=== PATIENT | male | born 1980 | race African-American/Black ===

== ENCOUNTER 2019-11-27 23:12 | Emergency (ER) | payer MEDICARE, SELFPAY ==
[2019-11-27 23:15] VITALS: BP 136/91; PULSE 84; RESP 15; TEMP 37.1; O2SAT 100
[2019-11-27 23:39] LABS: Basophils Absolute Auto 0.1 K/mm3 (0.0-0.1); Basophils Percent Auto 0.6 % (0.2-1.2); Eosinophils Absolute Auto 0.1 K/mm3 (0-0.3); Hematocrit 40.2 % (42.0-52.0); Hemoglobin 13.6 g/dL (14.0-18.0); Immature Granulocyte Absolute 0.02 K/mm3 (0.00-0.031); Immature Granulocyte Percent A 0.2 % (0-0.5); Lymphocytes Absolute Auto 2.92 K/mm3 (0.9-3.2); Lymphocytes Percent Auto 36.5 % (18.3-44.2); Mean Corpuscular HGB Conc 33.8 g/dl (32-36); Mean Corpuscular Hemoglobin 30.3 pg (26-34); Mean Corpuscular Volume 89.5 fl (80-100); Mean Platelet Volume 11.2 fl (7.4-10.4); Monocytes Absolute Auto 1.3 K/mm3 (0.1-0.6); Monocytes Percent Auto 15.9 % (2.6-8.5); Neutrophils Absolute Auto 3.7 K/mm3 (1.3-6.7); Neutrophils Percent Auto 45.8 % (45.5-73.1); Platelet Count Result 208 k/mm3 (150-375); Red Blood Count 4.49 M/mm3 (4.6-6.20); Red Cell Distribution Width 14.6 % (11.5-14.5)
[2019-11-27 23:58] LABS: Alanine Aminotransferase 26 U/L (4-50); Albumin Level 3.7 g/dL (3.5-5.1); Alkaline Phosphatase 86 U/L (38-126); Anion Gap 10.2 mmol/L (7-16); Aspartate Amino Transferase 46 U/L (17-59); Bilirubin,Total 0.3 mg/dL (0.2-1.3); Blood Urea Nitrogen 13 mg/dL (9-20); Calcium 8.7 mg/dL (8.4-10.2); Carbon Dioxide 27 mmol/L (22-30); Chloride 104 mmol/L (98-107); Estimated Glomerular Filt Rate > 60; Glucose 85 mg/dL (75-110); Potassium 4.2 mmol/L (3.4-5.0); Sodium 137 mmol/L (137-145)
[2019-11-28] LABS: Ethanol < 10 mg/dL (<10)
[2019-11-28 00:08] LABS: Amphetamine Screen Urine Negative (Negative); Barbiturate Screen Urine Negative (Negative); Benzodiazepines Screen Urine Negative (Negative); Cannabinoid Screen Urine Positive (Negative); Cocaine Screen Urine Negative (Negative); Methadone Screen Urine Negative (Negative); Opiate Screen Urine Negative (Negative); Phencyclidine Screen Urine Negative (Negative)
--- NOTE | 2019-11-28 00:08 | ED.PSYCH ---
HPI - Psych General Chief Complaint: Psychiatric Symptoms <Emma Dockery MD - Last Filed: 11/30/19 12:26> Stated Complaint: SI <Emma Dockery MD - Last Filed: 11/30/19 12:26> Time Seen by Provider: 11/27/19 23:17 <Emma Dockery MD - Last Filed: 11/30/19 12:26> History of Present Illness HPI Narrative: Patient presents for depression. He says he has ideas of suicide but no plan. He has ideas of homicide but no plan. He has no target for his homicidal ideation. He says he is on valproic acid and is not working. He is homeless and he says his feet hurt. He smokes cigarettes, drinks alcohol, does cocaine. 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 He is currently unemployed. I told him the psych worker would come in and evaluate him for either inpatient or outpatient, and he said he cannot do outpatient and has to be inpatient. <Emma Dockery MD - Last Filed: 11/30/19 12:26> MD complaint: suicidal ideation and feels depressed <Emma Dockery MD - Last Filed: 11/30/19 12:26> Onset (ago): day(s) <Emma Dockery MD - Last Filed: 11/30/19 12:26> Duration: constant <Emma Dockery MD - Last Filed: 11/30/19 12:26> History of same: Yes <Emma Dockery MD - Last Filed: 11/30/19 12:26> Relieving factors: none <Emma Dockery MD - Last Filed: 11/30/19 12:26> Exacerbating factors: other (Stress) <Emma Dockery MD - Last Filed: 11/30/19 12:26> Context: recent drug abuse and new medication(s) <Emma Dockery MD - Last Filed: 11/30/19 12:26> Associated psychiatric symptoms: depression, suicidal ideation and homicidal ideation <Emma Dockery MD - Last Filed: 11/30/19 12:26> Associated symptoms: other (Sore feet) <Emma Dockery MD - Last Filed: 11/30/19 12:26> Treatments prior to arrival: none <Emma Dockery MD - Last Filed: 11/30/19 12:26> If self harm: admits thoughts of self harm <Emma Dockery MD - Last Filed: 11/30/19 12:26> Related Data Home Medications: Home Medications Medication Instructions Recorded Confirmed benztropine 0.5 mg tablet 0.5 mg PO DAILY 04/04/19 divalproex 500 mg tablet,delayed 500 mg PO BID tablet 04/04/19 release haloperidol 10 mg tablet 10 mg PO DAILY 04/04/19 haloperidol 5 mg tablet 5 mg PO DAILY 04/04/19 zolpidem 10 mg tablet See Rx Instructions .ROUTE .COMPLEX 04/04/19 aripiprazole mg 11/27/19 divalproex PO 11/27/19 hydroxyzine HCl 11/27/19 lorazepam 11/27/19 paliperidone palm (3-month) mg IM 11/27/19 [Invega Trinza] paliperidone palm (3-month) mg IM 11/27/19 [Invega Trinza] <Emma Dockery MD - Last Filed: 11/30/19 12:26> Allergies/Adverse Reactions: Allergies Allergy/AdvReac Type Severity Reaction Status Date / Time No Known Allergies Allergy Mild Verified 04/22/09 09:11 Penicillins Allergy Unknown Unknown Verified 11/27/19 23:21 <Emma Dockery MD - Last Filed: 11/30/19 12:26> Review of Systems Review of Systems: Narrative: CONSTITUTIONAL: Denies fever, chills, or sweats. EYES: Denies visual changes, redness, or discharge. ENT: Denies rhinorrhea, congestion, sore throat, or otalgia. CARDIOVASCULAR: Denies chest pain, palpitations, or edema. RESPIRATORY: Denies cough or dyspnea. GASTROINTESTINAL: Denies abdominal pain, nausea, vomiting, or diarrhea. GENITOURINARY: Denies dysuria or hematuria. SKIN: Denies rash or itching. MUSCULOSKELETAL: Denies back pain, joint pain, or myalgia. Sore feet NEUROLOGIC: Denies headache, numbness, or weakness. PSYCHIATRIC: depression. <Emma Dockery MD - Last Filed: 11/30/19 12:26> [facility] Family History Family History: Family History (Updated 03/25/17 @ 13:24 by DOCTOR UNKNOWN) Mother Patient's mother is in good health <Emma Dockery MD - Last Filed: 11/30/19 12:26> Social History Social History: Social History (Updated 11/28/19 @ 00:14 by Emma Dockery MD) Smoking statu
[2019-11-28 00:52] LABS: Add Urine Microscopic? YES; Appearance Urine Clear (Clear); Bilirubin Urine Negative (Negative); Blood Urine Negative (Negative); Color Urine Straw (Yellow); Glucose Urine UA Negative (Negative); Ketones Urine Trace mg/dL (Negative); Leukocyte Esterase Ur Negative LEU/UL (Negative); Mucus Urine Rare /lpf; Nitrate Urine Negative (Negative); Protein Urine Negative (Negative); RBC Urine 0-2 /hpf (0-2); Specific Grav Ur 1.015 (1.001-1.035); Urobilinogen Urine Negative mg/dL (<2.0); WBC Urine 0-3 /hpf
--- NOTE | 2019-11-28 01:28 | PC.NURSE ---
Called crisis to have patient evaluated
--- NOTE | 2019-11-28 02:08 | PC.NURSE ---
Crisis here to evaluate Pt.
[2019-11-28 05:03] VITALS: BP 125/79; PULSE 74; RESP 20; O2SAT 100
--- NOTE | 2019-11-28 05:06 | PC.NURSE ---
tea tree farm worker states there are no hospitals that have beds at this time. tea tree farm worker to follow up in the morning.
[2019-11-28 08:07] VITALS: BP 127/84; PULSE 74; RESP 18; O2SAT 100
--- NOTE | 2019-11-28 10:19 | PC.NURSE ---
Pt chart faxed to [facility], and [facility].
[2019-11-28 10:47] VITALS: BP 145/83; PULSE 77; O2SAT 100
--- NOTE | 2019-11-28 11:48 | PC.NURSE ---
Lunch tray order at this time
--- NOTE | 2019-11-28 12:13 | PC.NURSE ---
[facility] on the phone for report on patient at this time
--- NOTE | 2019-11-28 12:13 | PC.NURSE ---
[facility] called to confirm patient was voluntary
--- NOTE | 2019-11-28 12:32 | PC.NURSE ---
Pt accepted to [facility], under Dr Randhawa
[2019-11-28 12:47] VITALS: BP 133/89; PULSE 68; RESP 18; O2SAT 100
[2019-11-28 15:37] VITALS: BP 139/96; PULSE 69; RESP 20; O2SAT 98
[2019-11-28] MEDS: DIVALPROEX SODIUM 250 MG TABEC 500 MG PO (17:09)
[2019-11-28] MEDS: ONDANSETRON HCL ODT 4 MG TABLET PO (17:09)
--- NOTE | 2019-11-28 17:09 | PC.NURSE ---
Pt given PO medications with ice water, pt is calm and cooperative. Sitter at bedside, discussed POC. Food tray ordered for pt.
[2019-11-28 18:40] VITALS: BP 129/83; PULSE 76; RESP 18; O2SAT 99
--- NOTE | 2019-11-28 18:40 | PC.NURSE ---
Updated pt. EMS eta 0600 tomorrow morning 11/28
[2019-11-28] MEDS: ZOLPIDEM TARTRATE 5 MG TABLET PO (22:57)
--- NOTE | 2019-11-29 02:08 | PC.NURSE ---
Spoke to [facility] to give update that ambulance ETA is still 0600.
[2019-11-29 02:11] VITALS: BP 131/77; PULSE 68; RESP 16; TEMP 36.3; O2SAT 100
[2019-11-29] MEDS: ACETAMINOPHEN 500 MG TABLET 1000 MG PO (02:40)
[2019-11-29] MEDS: HALOPERIDOL LACTATE 5 MG/ML VIAL IM (02:57)
--- NOTE | 2019-11-29 05:58 | PC.NURSE ---
Called [facility] for update on ETA. ETA 1100.
--- NOTE | 2019-11-29 06:06 | PC.NURSE ---
Cancelled [facility]. [facility] is arranging transportation.
--- NOTE | 2019-11-29 06:20 | PC.NURSE ---
Spoke to [facility] regarding transport. Diana told this RN to contact [facility], , to arrange transport. 4 digit code from [facility] is [phone]. ETA for new transport is 8:45.
--- NOTE | 2019-11-29 06:24 | PC.NURSE ---
Patient getting agitated at this time stating he is ready to get out of the ED.
[2019-11-29] MEDS: ALPRAZolam 0.25 MG TABLET 1 MG PO (06:37)
[2019-11-29 07:15] VITALS: BP 114/79; PULSE 63; RESP 15; TEMP 37; O2SAT 100
--- NOTE | 2019-11-29 07:16 | PC.NURSE ---
This RN went into pts room. Pt was asleep on mattress on floor. This RN woke pt and asked if I could get a set of vitals. Pt complied and sat on bed. Pt asked for some cookies and this RN gave him 3. This Rn asked pt if he was feeling like he wanted to harm himself or others and he states that has passed . Pt then states that he is getting some good sleep. Breakfast tray was ordered for pt. Pt was compliant. Sitter is at bedside and room is safe. Will continue to monitor.
--- NOTE | 2019-11-29 07:38 | PC.NURSE ---
Pt breakfast tray at bedside
--- NOTE | 2019-11-29 09:27 | PC.NURSE ---
[facility] here to take [facility] to [facility]. Pts belongings given to pt. Pt walked out with transport with no difficulty
== END 2019-11-29 09:29 ==
PROVIDERS: Emergency Medicine; Emergency Provider General Practice
DX: R45.851 Suicidal ideations (principal); F17.210 Nicotine dependence, cigarettes, uncomplicated; Z59.0 Homelessness; Z79.899 Other long term (current) drug therapy
CPT/HCPCS: 36415; 80053; 80307; 81001; 84443; 85025; 96372; 99285; A9270; J1630

== ENCOUNTER 2020-01-08 22:22 | Emergency (ER) | payer MEDICARE, SELFPAY ==
[2020-01-08 22:27] VITALS: BP 126/89; PULSE 97; RESP 18; TEMP 36.1; O2SAT 98
--- NOTE | 2020-01-08 22:36 | ED.PSYCH ---
HPI - Psych General Chief Complaint: Psychiatric Symptoms <Kailash Bhatt MD - Last Filed: 01/09/20 06:24> Stated Complaint: SI <Kailash Bhatt MD - Last Filed: 01/09/20 06:24> Time Seen by Provider: 01/08/20 22:33 <Kailash Bhatt MD - Last Filed: 01/09/20 06:24> History of Present Illness HPI Narrative: He reports that he always hears voices due to his shcizphrenia, but they have become more powerful recently. The voices tell him to hurt himself and others. He is not sure if this is the way he feels. He had not taken his psychiatric medications for the past 4 days. He just restarted them today. He reports that he saw his psychiatrist yesterday. <Kailash Bhatt MD - Last Filed: 01/09/20 06:24> Related Data Home Medications: Home Medications Medication Instructions Recorded Confirmed divalproex 500 mg tablet,delayed 500 mg PO BID tablet 04/04/19 release haloperidol 5 mg tablet 5 mg PO DAILY 04/04/19 zolpidem 10 mg tablet See Rx Instructions .ROUTE .COMPLEX 04/04/19 aripiprazole mg PO 11/27/19 hydroxyzine HCl HS 11/27/19 lorazepam See Rx Instructions .ROUTE 11/27/19 .COMPLEX PRN paliperidone palm (3-month) mg IM 11/27/19 [Invega Trinza] buspirone mg TID 01/09/20 <Kailash Bhatt MD - Last Filed: 01/09/20 06:24> Allergies/Adverse Reactions: Allergies Allergy/AdvReac Type Severity Reaction Status Date / Time No Known Allergies Allergy Mild Verified 04/22/09 09:11 Penicillins Allergy Unknown Unknown Verified 11/27/19 23:21 <Kailash Bhatt MD - Last Filed: 01/09/20 06:24> Review of Systems Review of Systems: All systems reviewed & are unremarkable except as noted in HPI and below <Kailash Bhatt MD - Last Filed: 01/09/20 06:24> Constitutional: Constitutional: Denies chills and Denies fever(s) <Kailash Bhatt MD - Last Filed: 01/09/20 06:24> Eyes: Eyes: Denies change in vision <Kailash Bhatt MD - Last Filed: 01/09/20 06:24> Cardiovascular: Cardiovascular: Denies chest pain <Kailash Bhatt MD - Last Filed: 01/09/20 06:24> Respiratory: Respiratory: Denies dyspnea <Kailash Bhatt MD - Last Filed: 01/09/20 06:24> Gastrointestinal: Gastrointestinal: Denies abdominal pain <Kailash Bhatt MD - Last Filed: 01/09/20 06:24> Neurologic: Denies weakness <Kailash Bhatt MD - Last Filed: 01/09/20 06:24> Psychiatric: Psychiatric: Reports homicidal ideation and Reports suicidal ideation <Kailash Bhatt MD - Last Filed: 01/09/20 06:24> PMFSH Past Medical History Medical History: Medical History (Updated 01/09/20 @ 12:13 by Xin Salgado MD) Schizophrenia <Kailash Bhatt MD - Last Filed: 01/09/20 06:24> Family History Family History: Family History (Updated 03/25/17 @ 13:24 by DOCTOR UNKNOWN) Mother Patient's mother is in good health <Kailash Bhatt MD - Last Filed: 01/09/20 06:24> Social History Social History: Social History (Updated 11/28/19 @ 00:14 by Emma Dockery MD) Smoking status: Current every day smoker Alcohol intake: current Substance use: current Substance use type: crack/cocaine <Kailash Bhatt MD - Last Filed: 01/09/20 06:24> Exam Const: General: healthy appearing, no acute distress and alert <Kailash Bhatt MD - Last Filed: 01/09/20 06:24> Orientation/consciousness: patient oriented x3 <Kailash Bhatt MD - Last Filed: 01/09/20 06:24> HENMT: Head: normal to inspection <Kailash Bhatt MD - Last Filed: 01/09/20 06:24> Neck: Neck: normal visual inspection and no lymphadenopathy <Kailash Bhatt MD - Last Filed: 01/09/20 06:24> Chest: Chest palpation & inspection: no tenderness <Kailash Bhatt MD - Last Filed: 01/09/20 06:24> Resp: Effort & Inspection: normal respiratory effort <Kailash Bhatt MD - Last Filed: 01/09/20 06:24> Auscultation: clear to auscultation bilaterally
[2020-01-08 22:51] LABS: Basophils Absolute Auto 0.1 K/mm3 (0.0-0.1); Basophils Percent Auto 0.6 % (0.2-1.2); Eosinophils Absolute Auto 0.1 K/mm3 (0-0.3); Eosinophils Percent Auto 0.8 % (0-4.4); Hematocrit 42.5 % (42.0-52.0); Hemoglobin 14.5 g/dL (14.0-18.0); Immature Granulocyte Absolute 0.02 K/mm3 (0.00-0.031); Immature Granulocyte Percent A 0.2 % (0-0.5); Lymphocytes Absolute Auto 3.75 K/mm3 (0.9-3.2); Lymphocytes Percent Auto 43.5 % (18.3-44.2); Mean Corpuscular HGB Conc 34.1 g/dl (32-36); Mean Corpuscular Hemoglobin 30.2 pg (26-34); Mean Corpuscular Volume 88.5 fl (80-100); Mean Platelet Volume 10.7 fl (7.4-10.4); Monocytes Absolute Auto 1.1 K/mm3 (0.1-0.6); Monocytes Percent Auto 12.8 % (2.6-8.5); Neutrophils Absolute Auto 3.6 K/mm3 (1.3-6.7); Neutrophils Percent Auto 42.1 % (45.5-73.1); Platelet Count Result 240 k/mm3 (150-375); White Blood Count 8.6 K/mm3 (4.5-10.0)
[2020-01-08 23:11] LABS: Ethanol 34 mg/dL (<10)
[2020-01-08 23:13] LABS: Alanine Aminotransferase 18 U/L (4-50); Albumin Level 4.2 g/dL (3.5-5.1); Alkaline Phosphatase 46 U/L (38-126); Anion Gap 6 mmol/L (8-16); Aspartate Amino Transferase 31 U/L (17-59); Bilirubin,Total 0.5 mg/dL (0.2-1.3); Blood Urea Nitrogen 5 mg/dL (9-20); Calcium 9.4 mg/dL (8.4-10.2); Carbon Dioxide 30 mmol/L (22-30); Chloride 98 mmol/L (98-107); Estimated CRCL calculation 116 ml/min; Estimated Glomerular Filt Rate > 60; Glucose 94 mg/dL (75-110); Potassium 3.6 mmol/L (3.4-5.0); Sodium 134 mmol/L (137-145)
[2020-01-08 23:30] LABS: Add Urine Microscopic? NO; Appearance Urine Clear (Clear); Bilirubin Urine Negative (Negative); Blood Urine Negative (Negative); Color Urine Colorless (Yellow); Glucose Urine UA Negative (Negative); Ketones Urine Negative (Negative); Leukocyte Esterase Ur Negative LEU/UL (Negative); Mucus Urine Rare /lpf; Nitrate Urine Negative (Negative); Protein Urine Negative (Negative); Urobilinogen Urine Negative mg/dL (<2.0); WBC Urine 0-3 /hpf
[2020-01-08 23:32] LABS: Specific Grav Ur 1.003 (1.001-1.035)
[2020-01-08 23:45] LABS: Amphetamine Screen Urine Negative (Negative); Barbiturate Screen Urine Negative (Negative); Benzodiazepines Screen Urine Negative (Negative); Cannabinoid Screen Urine Positive (Negative); Cocaine Screen Urine Negative (Negative); Methadone Screen Urine Negative (Negative); Opiate Screen Urine Negative (Negative); Phencyclidine Screen Urine Negative (Negative)
[2020-01-09 06:09] VITALS: BP 119/76; PULSE 80; RESP 16; TEMP 36.8; O2SAT 99
--- NOTE | 2020-01-09 08:52 | PC.NURSE ---
pt requests meds for anxiety and backache. pt outside room pacing Brandon schulte. , charge entry and security notified.
--- NOTE | 2020-01-09 08:53 | PC.NURSE ---
Informed Dr Salgado that pt requesting medication for his anxiousness and back pain.
--- NOTE | 2020-01-09 08:56 | PC.NURSE ---
Security called t room - pt getting agitated and making statements of leaving and that he needs medications right now.
[2020-01-09] MEDS: HALOPERIDOL LACTATE 5 MG/ML VIAL IM (09:17)
[2020-01-09 12:30] VITALS: BP 109/53; PULSE 76; RESP 16; TEMP 36.7; O2SAT 96
[2020-01-09 20:33] LABS: SARS-CoV-2 RNA PCR Negative
== END 2020-01-09 13:33 ==
PROVIDERS: Emergency Medicine; Emergency Provider General Practice; PCP Emergency Medicine
DX: F20.9 Schizophrenia, unspecified (principal); F17.200 Nicotine dependence, unspecified, uncomplicated; Z20.828 Contact with and (suspected) exposure to other viral communicable diseases
CPT/HCPCS: 36415; 80053; 80307; 81003; 84443; 85025; 87635; 96372; 99285; C9803; J1630; U0003

== ENCOUNTER 2020-04-22 14:38 | Emergency (ER) | payer MEDICARE, SELFPAY ==
[2020-04-22 14:50] VITALS: BP 118/78; PULSE 91; RESP 22; TEMP 37.3; O2SAT 100
[2020-04-22 15:37] LABS: Basophils Percent Auto 0.6 % (0.2-1.2); Eosinophils Percent Auto 0.4 % (0-4.4); Hematocrit 43.8 % (42.0-52.0); Hemoglobin 14.9 g/dL (14.0-18.0); Immature Granulocyte Absolute 0.02 K/mm3 (0.00-0.031); Immature Granulocyte Percent A 0.3 % (0-0.5); Lymphocytes Absolute Auto 2.09 K/mm3 (0.9-3.2); Lymphocytes Percent Auto 30.2 % (18.3-44.2); Mean Corpuscular Hemoglobin 30.3 pg (26-34); Mean Platelet Volume 10.8 fl (7.4-10.4); Monocytes Absolute Auto 0.6 K/mm3 (0.1-0.6); Monocytes Percent Auto 9.2 % (2.6-8.5); Neutrophils Absolute Auto 4.1 K/mm3 (1.3-6.7); Neutrophils Percent Auto 59.3 % (45.5-73.1); Platelet Count Result 257 k/mm3 (150-375); Red Blood Count 4.92 M/mm3 (4.6-6.20); Red Cell Distribution Width 13.3 % (11.5-14.5); White Blood Count 6.9 K/mm3 (4.5-10.0)
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
[2020-04-22 15:41] LABS: Add Urine Microscopic? YES; Appearance Urine Clear (Clear); Bacteria Urine Trace /hpf; Bilirubin Urine Negative (Negative); Blood Urine Negative (Negative); Color Urine Yellow (Yellow); Glucose Urine UA Negative (Negative); Ketones Urine Trace mg/dL (Negative); Leukocyte Esterase Ur Negative LEU/UL (Negative); Mucus Urine Rare /lpf; Nitrate Urine Negative (Negative); Protein Urine 1+ mg/dL (Negative); Specific Grav Ur 1.024 (1.001-1.035); Squamous Epithelial Cell Urine Rare /hpf (Few); WBC Urine 0-3 /hpf
[2020-04-22 15:52] LABS: Ethanol < 10 mg/dL (<10)
[2020-04-22 15:53] LABS: Alanine Aminotransferase 18 U/L (4-50); Albumin Level 4.3 g/dL (3.5-5.1); Alkaline Phosphatase 64 U/L (38-126); Anion Gap 8 mmol/L (8-16); Aspartate Amino Transferase 41 U/L (17-59); Bilirubin,Total 0.3 mg/dL (0.2-1.3); Blood Urea Nitrogen 12 mg/dL (9-20); Calcium 9.3 mg/dL (8.4-10.2); Carbon Dioxide 30 mmol/L (22-30); Chloride 102 mmol/L (98-107); Estimated CRCL calculation 91 ml/min; Estimated Glomerular Filt Rate > 60; Glucose 81 mg/dL (75-110); Potassium 3.6 mmol/L (3.4-5.0); Sodium 140 mmol/L (137-145)
[2020-04-22 15:55] LABS: Amphetamine Screen Urine Negative (Negative); Barbiturate Screen Urine Negative (Negative); Benzodiazepines Screen Urine Negative (Negative); Cannabinoid Screen Urine Positive (Negative); Cocaine Screen Urine Negative (Negative); Methadone Screen Urine Negative (Negative); Opiate Screen Urine Negative (Negative); Phencyclidine Screen Urine Negative (Negative)
--- NOTE | 2020-04-22 16:29 | PC.NURSE ---
pt sleeping without distress.
--- NOTE | 2020-04-22 20:21 | PC.NURSE ---
Medical Records Custodian spoke with Kaitlin with crisis at 2017.
[2020-04-22 22:20] VITALS: BP 121/64; PULSE 72; RESP 16; O2SAT 99
== END 2020-04-22 22:21 | disposition home or self-care (01) ==
PROVIDERS: Emergency Provider Emergency Medicine; PCP Emergency Medicine
DX: F20.9 Schizophrenia, unspecified (principal); Z79.899 Other long term (current) drug therapy; F17.200 Nicotine dependence, unspecified, uncomplicated
CPT/HCPCS: 36415; 80053; 80307; 81001; 84443; 85025; 99284

== ENCOUNTER 2020-06-19 01:29 | Emergency (ER) | payer MEDICARE, SELFPAY ==
[2020-06-19 01:31] VITALS: BP 151/104; PULSE 115; RESP 18; TEMP 36.7; O2SAT 100
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
--- NOTE | 2020-06-19 02:01 | ED.PSYCH ---
HPI - Psych General Chief Complaint: Psychiatric Symptoms Stated Complaint: schizophrenic, manic Time Seen by Provider: 06/19/20 01:43 Source: patient Mode of arrival: ambulatory Limitations: no limitations History of Present Illness HPI Narrative: 39-year-old male was brought into the emergency department via local PD. Apparently the patient was walking down the middle of the street taking his clothes off. Patient is a known schizophrenic and has had many visits to local emergency departments. Patient is hypermanic right now and unable to provide any meaningful history. Related Data Home Medications Medication Instructions Recorded Confirmed divalproex 500 mg tablet,delayed 500 mg PO BID tablet 04/04/19 release haloperidol 5 mg tablet 5 mg PO DAILY 04/04/19 zolpidem 10 mg tablet See Rx Instructions .ROUTE .COMPLEX 04/04/19 aripiprazole mg PO 11/27/19 hydroxyzine HCl HS 11/27/19 lorazepam See Rx Instructions .ROUTE 11/27/19 .COMPLEX PRN paliperidone palm (3-month) mg IM 11/27/19 [Dae Knight] buspirone mg TID 01/09/20 benztropine 04/22/20 Allergies Allergy/AdvReac Type Severity Reaction Status Date / Time No Known Allergies Allergy Mild Verified 06/19/20 01:33 Review of Systems Review of Systems: ROS unobtainable: Yes unobtainable due to mental status PMFSH Past Medical History Medical History Schizophrenia Family History Family History Mother Patient's mother is in good health Social History Social History Smoking status: Current every day smoker Alcohol intake: current Substance use: current Substance use type: crack/cocaine Gender identity (if verbalized by the patient): Male Sexual Orientation (if Verbalized by the Patient): Straight or Heterosexual Exam Narrative: Exam Narrative: GENERAL: Well-appearing, well-nourished, and in no acute distress. HEAD: Normocephalic, atraumatic. EYES: PERRLA and EOMI. ENT: Nares clear, no rhinorrhea or epistaxis. Mucous membranes moist. NECK: Supple. No adenopathy or masses. No carotid bruits or JVD CHEST: Clear to auscultation. No respiratory distress. No wheezes rales or rhonchi HEART: Regular rate and rhythm. No murmur heard. Normal peripheral pulses. ABDOMEN: Soft, nontender, nondistended, normal active bowel sounds. EXTREMITIES: Normal range of motion. No edema. SKIN: Warm, dry, no rash. NEURO: No focal deficits. Alert and oriented x3. PSYCH: Manic, tangential speech, rapid and pressured. Course Reevaluation(s) Reevaluation #1: While crisis intervention worker was trying to interview the patient he woke up, became agitated started storming around the emergency department. Patient was demanding his possessions and wanted to leave. Patient all along to all employees here in the emergency department he had been denying suicidal or homicidal ideations. Patient is ANO x4 in spite of answering some questions tangentially. Patient will not be held against as well, as he wishes to leave he will be allowed. Time: 06:20 Vital Signs Vital signs: Vital Signs Temperature 36.7 C 06/19/20 01:31 Pulse Rate 115 H 06/19/20 01:31 Respiratory Rate 18 06/19/20 01:31 Blood Pressure 151/104 H 06/19/20 01:31 Pulse Oximetry 100 06/19/20 01:31 Temperature 36.7 C 06/19/20 01:31 Pulse Rate 87 06/19/20 05:30 Respiratory Rate 16 06/19/20 05:30 Blood Pressure 134/79 06/19/20 05:30 Pulse Oximetry 98 06/19/20 05:30 MDM - Psych Lab Data Result diagrams: 06/19/20 02:30 06/19/20 02:30 Labs: Lab Results 06/19/20 06/19/20 06/19/20 Range/Units 02:05 02:05 02:30 WBC 11.4 H (4.5-10.0) K/mm3 RBC 4.76 (4.6-6.20) M/mm3 Hgb 14.3 (14.0-18.0) g/dL Hct 42.2 (42.0-52.0) % MCV 88.7 (80-100) fl MCH
[2020-06-19 02:21] LABS: Add Urine Microscopic? NO; Appearance Urine Clear (Clear); Bilirubin Urine Negative (Negative); Blood Urine Negative (Negative); Color Urine Straw (Yellow); Glucose Urine UA Negative (Negative); Ketones Urine Negative (Negative); Leukocyte Esterase Ur Negative LEU/UL (Negative); Nitrate Urine Negative (Negative); Protein Urine Negative (Negative); Specific Grav Ur 1.006 (1.001-1.035); Urobilinogen Urine Negative mg/dL (<2.0)
[2020-06-19 02:29] LABS: Amphetamine Screen Urine Negative (Negative); Barbiturate Screen Urine Negative (Negative); Benzodiazepines Screen Urine Negative (Negative); Cannabinoid Screen Urine Positive (Negative); Cocaine Screen Urine Negative (Negative); Methadone Screen Urine Negative (Negative); Opiate Screen Urine Negative (Negative); Phencyclidine Screen Urine Negative (Negative)
[2020-06-19 02:38] LABS: Basophils Absolute Auto 0.1 K/mm3 (0.0-0.1); Basophils Percent Auto 0.4 % (0.2-1.2); Eosinophils Percent Auto 0.1 % (0-4.4); Hematocrit 42.2 % (42.0-52.0); Hemoglobin 14.3 g/dL (14.0-18.0); Immature Granulocyte Absolute 0.05 K/mm3 (0.00-0.031); Immature Granulocyte Percent A 0.4 % (0-0.5); Lymphocytes Percent Auto 17.5 % (18.3-44.2); Mean Corpuscular HGB Conc 33.9 g/dl (32-36); Mean Corpuscular Volume 88.7 fl (80-100); Mean Platelet Volume 9.9 fl (7.4-10.4); Monocytes Percent Auto 8.9 % (2.6-8.5); Neutrophils Absolute Auto 8.3 K/mm3 (1.3-6.7); Neutrophils Percent Auto 72.7 % (45.5-73.1); Platelet Count Result 288 k/mm3 (150-375); Red Blood Count 4.76 M/mm3 (4.6-6.20); Red Cell Distribution Width 14.2 % (11.5-14.5); White Blood Count 11.4 K/mm3 (4.5-10.0)
[2020-06-19] MEDS: OLANZapine 10 MG INJ VIAL IM (02:39)
[2020-06-19] MEDS: WATER, STERILE FOR INJECTION 10 ML VIAL XX (02:40)
[2020-06-19 02:48] LABS: Alanine Aminotransferase 16 U/L (4-50); Albumin Level 4.3 g/dL (3.5-5.1); Alkaline Phosphatase 67 U/L (38-126); Anion Gap 8 mmol/L (8-16); Aspartate Amino Transferase 37 U/L (17-59); Blood Urea Nitrogen 11 mg/dL (9-20); Calcium 9.1 mg/dL (8.4-10.2); Carbon Dioxide 26 mmol/L (22-30); Chloride 106 mmol/L (98-107); Estimated CRCL calculation 91 ml/min; Estimated Glomerular Filt Rate > 60; Glucose 68 mg/dL (75-110); Potassium 3.3 mmol/L (3.4-5.0); Sodium 140 mmol/L (137-145)
[2020-06-19 02:54] LABS: Ethanol 28 mg/dL (<10)
[2020-06-19 03:14] LABS: Lithium < 0.2 mmol/L (0.6-1.2)
[2020-06-19 04:00] VITALS: BP 124/84; PULSE 74; RESP 16; O2SAT 97
--- NOTE | 2020-06-19 06:20 | PC.NURSE ---
Patient becoming very agitated -wanting his clothes and wants to leave. June from [facility] is still on premises and has been made aware that patient stormed around of the ED. Dr Ariza said to let the patient go as he is not suicidal-patient escorted out of ED
== END 2020-06-19 06:25 | disposition left against medical advice (07) ==
PROVIDERS: Emergency Provider Emergency Medicine; PCP Emergency Medicine
DX: F20.9 Schizophrenia, unspecified (principal); F17.200 Nicotine dependence, unspecified, uncomplicated; Z79.899 Other long term (current) drug therapy
CPT/HCPCS: 36415; 80053; 80178; 80307; 81003; 84443; 85025; 96372; 99284

== ENCOUNTER 2020-07-04 10:40 | Emergency (ER) | payer MEDICARE, MEDICAID, SELFPAY ==
[2020-07-04 10:49] VITALS: BP 119/78; PULSE 84; RESP 14; TEMP 36.5; O2SAT 98
[2020-07-04 11:01] LABS: Basophils Percent Auto 0.5 % (0.2-1.2); Eosinophils Percent Auto 0.7 % (0-4.4); Hematocrit 45.4 % (42.0-52.0); Hemoglobin 15.5 g/dL (14.0-18.0); Immature Granulocyte Absolute 0.01 K/mm3 (0.00-0.031); Immature Granulocyte Percent A 0.2 % (0-0.5); Lymphocytes Absolute Auto 2.07 K/mm3 (0.9-3.2); Lymphocytes Percent Auto 34.5 % (18.3-44.2); Mean Corpuscular HGB Conc 34.1 g/dl (32-36); Mean Corpuscular Hemoglobin 30.3 pg (26-34); Mean Corpuscular Volume 88.8 fl (80-100); Mean Platelet Volume 9.8 fl (7.4-10.4); Monocytes Absolute Auto 0.9 K/mm3 (0.1-0.6); Monocytes Percent Auto 15.3 % (2.6-8.5); Neutrophils Absolute Auto 2.9 K/mm3 (1.3-6.7); Neutrophils Percent Auto 48.8 % (45.5-73.1); Platelet Count Result 290 k/mm3 (150-375); Red Blood Count 5.11 M/mm3 (4.6-6.20); Red Cell Distribution Width 14.3 % (11.5-14.5)
[2020-07-04 11:14] LABS: Alanine Aminotransferase 18 U/L (4-50); Albumin Level 4.8 g/dL (3.5-5.1); Alkaline Phosphatase 73 U/L (38-126); Anion Gap 7 mmol/L (8-16); Aspartate Amino Transferase 38 U/L (17-59); Bilirubin,Total 0.5 mg/dL (0.2-1.3); Blood Urea Nitrogen 5 mg/dL (9-20); Calcium 9.7 mg/dL (8.4-10.2); Carbon Dioxide 27 mmol/L (22-30); Chloride 102 mmol/L (98-107); Estimated CRCL calculation 98 ml/min; Estimated Glomerular Filt Rate > 60; Ethanol 48 mg/dL (<10); Glucose 70 mg/dL (75-110); Potassium 3.9 mmol/L (3.4-5.0); Sodium 136 mmol/L (137-145)
[2020-07-04 11:21] LABS: Add Urine Microscopic? YES; Appearance Urine Clear (Clear); Bilirubin Urine Negative (Negative); Blood Urine Negative (Negative); Color Urine Yellow (Yellow); Glucose Urine UA Negative (Negative); Ketones Urine Negative (Negative); Leukocyte Esterase Ur Negative LEU/UL (Negative); Mucus Urine Rare /lpf; Nitrate Urine Negative (Negative); Protein Urine 1+ mg/dL (Negative); RBC Urine 0-2 /hpf (0-2); Specific Grav Ur 1.021 (1.001-1.035); Squamous Epithelial Cell Urine Rare /hpf (Few); Urobilinogen Urine Negative mg/dL (<2.0); WBC Urine 0-3 /hpf
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
[2020-07-04 11:39] LABS: Amphetamine Screen Urine Negative (Negative); Barbiturate Screen Urine Negative (Negative); Benzodiazepines Screen Urine Negative (Negative); Cannabinoid Screen Urine Positive (Negative); Cocaine Screen Urine Negative (Negative); Methadone Screen Urine Negative (Negative); Opiate Screen Urine Negative (Negative); Phencyclidine Screen Urine Negative (Negative)
--- NOTE | 2020-07-04 13:27 | ECG_ITS ---
Measurements Intervals [place] Rate: 85 P: 71 CA: 135 QRS: 80 QRSD: 86 T: 62 QT: 353 QTc: 420 Interpretive Statements SINUS RHYTHM ST ELEVATION IN DIFFUSE LEADS- PROBABLY EARLY REPOLARIZATION BORDERLINE ECG Electronically Signed On 07-04-2020 14:27:19 HYBRID DERIVATIVES TRADER by Ja Moreno D.O.
--- NOTE | 2020-07-04 13:39 | PC.NURSE ---
Called laboratory and added mag level and had labs ordered added to urine specimen down in lab currently. Kevan Herring will add tests.
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
[2020-07-04 13:58] VITALS: BP 121/60; PULSE 86; RESP 15; TEMP 37.2; O2SAT 100
[2020-07-04 14:00] LABS: Magnesium 2.1 mg/dL (1.6-2.3)
--- NOTE | 2020-07-04 15:08 | PC.NURSE ---
belongings put in locked cabinet, blue back pack & pt belonging bag of clothes
[2020-07-04 17:09] VITALS: BP 103/63; PULSE 73; RESP 15; O2SAT 98
[2020-07-04] MEDS: HALOPERIDOL 5 MG TABLET PO (17:52)
[2020-07-04] MEDS: busPIRone HCL 5 MG TABLET PO ×2 (17:52→18:11)
--- NOTE | 2020-07-04 17:52 | PC.NURSE ---
Patient medicated per MAR
--- NOTE | 2020-07-04 17:55 | PC.NURSE ---
Faxed packet to [facility], [place]. Awaiting call back
--- NOTE | 2020-07-04 18:26 | PC.NURSE ---
spoke w/ Leslie from Crisis, will continue to try to find placement
[2020-07-04 20:52] VITALS: BP 125/66; PULSE 71; RESP 15; TEMP 36.8; O2SAT 99
[2020-07-05] MEDS: DIVALPROEX SODIUM ER 500 MG TAB.24H PO ×2 (00:33→20:31)
[2020-07-05 03:46] VITALS: BP 118/73; PULSE 72; RESP 12; TEMP 36.7; O2SAT 98
[2020-07-05] MEDS: IBUPROFEN 400 MG TABLET 800 MG PO (04:50)
[2020-07-05 07:00] VITALS: TEMP 36.7
[2020-07-05 07:46] VITALS: BP 127/68; PULSE 98; RESP 18; TEMP 37.3; O2SAT 100
[2020-07-05] MEDS: BENZTROPINE MESYLATE 1 MG TABLET PO ×2 (08:08→20:31)
[2020-07-05] MEDS: busPIRone HCL 10 MG TABLET PO (08:08)
[2020-07-05] MEDS: HALOPERIDOL 5 MG TABLET 10 MG PO (08:09)
--- NOTE | 2020-07-05 11:06 | PC.NURSE ---
Patient anxious and escalating at this time. Asked Dr. Salgado for PRN medication. No new orders at this time.
[2020-07-05] MEDS: LORazepam (*CRX) 0.5 MG TABLET PO (12:20)
--- NOTE | 2020-07-05 16:40 | PC.NURSE ---
Patient requesting all medications be given tonight around 1999.
[2020-07-05 18:59] LABS: SARS-CoV-2 RNA PCR Negative
[2020-07-05 20:26] VITALS: BP 117/74; PULSE 68; RESP 18; O2SAT 99
--- NOTE | 2020-07-05 20:35 | PC.NURSE ---
faxed updated vital signs and covid results to [facility] and [facility]
--- NOTE | 2020-07-06 01:27 | PC.NURSE ---
pt is being loud and refuses to have v.s.taken
[2020-07-06] MEDS: LORazepam (*CRX) 1 MG TABLET PO (01:53)
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
[2020-07-06 04:25] VITALS: BP 116/57; PULSE 69; RESP 18; O2SAT 100
[2020-07-06] MEDS: IBUPROFEN 400 MG TABLET 800 MG PO (05:03)
--- NOTE | 2020-07-06 06:09 | PC.NURSE ---
[facility] called talked to kim[facility]ly , he request to fax the meds pt received in the ed.
--- NOTE | 2020-07-06 06:32 | PC.NURSE ---
called for a breakfast tray.
--- NOTE | 2020-07-06 06:34 | PC.NURSE ---
called crisis advised his 24 hour assessment expires @ 0818 this am, @ this time have not found placement for the pt.
[2020-07-06 07:13] VITALS: BP 124/90; PULSE 76; RESP 18; O2SAT 99
[2020-07-06] MEDS: busPIRone HCL 10 MG TABLET PO (07:33)
[2020-07-06] MEDS: BENZTROPINE MESYLATE 1 MG TABLET PO (07:33)
[2020-07-06] MEDS: HALOPERIDOL 5 MG TABLET 10 MG PO (07:33)
--- NOTE | 2020-07-06 07:36 | PC.NURSE ---
Pt states I am no longer homicidal or suicidal. I will go stay with my brother in [place]. I know I cant go to [place] because i will end up in group home . Pt also apologized for his actions last night. Pt had breakfast and was given morning meds. Pt is resting now and sitter is at door.
--- NOTE | 2020-07-06 08:52 | PC.NURSE ---
Addendum entered by Vonnie Christopher RN 07/06/20 11:34: Pts brother states that him or his family can no longer care for him and want him to get help,. Original Note: Pts brother called and states that pt is not welcomed at his home and that he has also been trespassed from his home. Pt states him or his family can no longer care for him and want him to get help.
--- NOTE | 2020-07-06 09:30 | PC.NURSE ---
[facility]ris[facility] here to speak with pt.
--- NOTE | 2020-07-06 10:58 | PC.NURSE ---
Per Crisis [facility] in [place] will take pt. Will call with bed information
--- NOTE | 2020-07-06 12:51 | PC.NURSE ---
pt to shower with security team lead
--- NOTE | 2020-07-06 12:52 | PC.NURSE ---
faxed inpt cert to [facility] and [facility], awaiting response
[2020-07-06] MEDS: LORazepam (*CRX) 1 MG TABLET (14:18)
[2020-07-06] MEDS: NICOTINE (*PBKC) 21 MG PATCH 1 PATCH (14:18)
--- NOTE | 2020-07-06 14:18 | PC.NURSE ---
vorb for ativan 1mg po x1 and nicotine patch 21mg x1 from dr bañuelos
[2020-07-06 15:54] VITALS: BP 132/88; PULSE 82; RESP 16; O2SAT 98
--- NOTE | 2020-07-06 16:01 | PC.NURSE ---
pt to go to [facility] unable to get paperwork completed for transfer to [facility] informed of transfer to [facility] will speak to [facility] and inform of change in poc
--- NOTE | 2020-07-06 17:02 | PC.NURSE ---
accepted to [id number] will call report
--- NOTE | 2020-07-06 17:28 | PC.NURSE ---
[facility] accepted transfer ETA 30min Trip [id number]
[2020-07-06 17:34] VITALS: BP 128/90; PULSE 88; RESP 16; TEMP 36.9; O2SAT 98
== END 2020-07-06 17:52 ==
PROVIDERS: Emergency Medicine Emergency Medical Services; General Practice; Emergency Provider Emergency Medicine; PCP Emergency Medicine
DX: R45.851 Suicidal ideations (principal); R45.850 Homicidal ideations; Z59.0 Homelessness; F20.9 Schizophrenia, unspecified; F10.10 Alcohol abuse, uncomplicated; F17.200 Nicotine dependence, unspecified, uncomplicated; Z20.822 Contact with and (suspected) exposure to COVID-19; R94.31 Abnormal electrocardiogram [ECG] [EKG]; Z79.899 Other long term (current) drug therapy; Y90.2 Blood alcohol level of 40-59 mg/100 ml
CPT/HCPCS: 36415; 80053; 80307; 81001; 83735; 84443; 85025; 87491; 87591; 93005; 99285; A9270; C9803; J1630; J2060; U0003; U0005

== ENCOUNTER 2020-09-08 09:23 | Emergency (ER) | payer MEDICARE, MEDICAID, SELFPAY ==
[2020-09-08 09:20] VITALS: BP 159/106; PULSE 97; RESP 18; TEMP 37.3; O2SAT 99
== END 2020-09-08 09:40 | disposition left against medical advice (07) ==
LOC: ANHED 09:37
PROVIDERS: PCP Emergency Medicine
DX: R07.81 Pleurodynia (principal)
CPT/HCPCS: 99199

== ENCOUNTER 2020-09-09 04:31 | Emergency (ER) | payer MEDICARE, MEDICAID, SELFPAY ==
[2020-09-09] VITALS (19 sets, daily range): BP systolic 115–128; BP diastolic 79–89; PULSE 70–101; RESP 16–24; TEMP 36.8; O2SAT 93–99
--- NOTE | ~2020-09-09 | CT_ITS ---
EXAMINATION: CT chest abdomen pelvis w con DATE: 09/09/2020 05:51 INDICATION: Left chest pain. TECHNIQUE: Computed tomography (CT) of the chest, abdomen, and pelvis was performed with 100 mL Omnip aque 350 intravenous contrast. Automated exposure control and iterative reconstruction technique were employed. The dose-length product was 800.77 mGy-cm. COMPARISON: CT abdomen and pelvis 09/26/2018 FINDINGS: CHEST CT: There is mild emphysema. There are small pleural effusions. There is mild dependent atelectasis in ri ght lung. There are centrilobular nodules in left lower lobe, consistent with pneumonia. The heart si ze is normal. No pericardial effusion. There is bilateral gynecomastia. There are fractures of left f ifth and sixth ribs. There is an old healed fracture of the sternum. ABDOMEN/PELVIS CT: The liver demonstrates focal steatosis adjacent to ligamentum teres. The gallbladder, spleen, pancrea s, and adrenal glands are normal. There are cysts in the kidneys measuring up to 9 mm on the right. T here are no dilated loops of bowel. The appendix is normal. The bladder is distended. There are no pa thologically enlarged lymph nodes. There is no free intraperitoneal fluid. There is mild lumbar spond ylosis. IMPRESSION: 1. Left lower lobe pneumonia. 2. Small pleural effusions. 3. Acute fractures of left fifth and sixth ribs. Reviewed, dictated and finalized at location A.
[2020-09-09 05:41] LABS: Estimated Glomerular Filt Rate > 60
[2020-09-09 05:45] LABS: Basophils Percent Auto 0.2 % (0.2-1.2); Eosinophils Absolute Auto 0.1 K/mm3 (0-0.3); Eosinophils Percent Auto 0.4 % (0-4.4); Hematocrit 45.1 % (42.0-52.0); Hemoglobin 15.3 g/dL (14.0-18.0); Immature Granulocyte Absolute 0.04 K/mm3 (0.00-0.031); Immature Granulocyte Percent A 0.3 % (0-0.5); Lymphocytes Absolute Auto 1.79 K/mm3 (0.9-3.2); Lymphocytes Percent Auto 14.3 % (18.3-44.2); Mean Corpuscular HGB Conc 33.9 g/dl (32-36); Mean Corpuscular Volume 88.4 fl (80-100); Mean Platelet Volume 10.6 fl (7.4-10.4); Monocytes Percent Auto 16.3 % (2.6-8.5); Neutrophils Absolute Auto 8.6 K/mm3 (1.3-6.7); Neutrophils Percent Auto 68.5 % (45.5-73.1); Platelet Count Result 222 k/mm3 (150-375); Red Cell Distribution Width 13.7 % (11.5-14.5); White Blood Count 12.5 K/mm3 (4.5-10.0)
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
[2020-09-09 06:05] LABS: Alanine Aminotransferase 12 U/L (4-50); Albumin Level 4.1 g/dL (3.5-5.1); Alkaline Phosphatase 70 U/L (38-126); Anion Gap 5 mmol/L (8-16); Aspartate Amino Transferase 30 U/L (17-59); Bilirubin,Total 1.1 mg/dL (0.2-1.3); Blood Urea Nitrogen 12 mg/dL (9-20); Calcium 9.3 mg/dL (8.4-10.2); Carbon Dioxide 31 mmol/L (22-30); Chloride 99 mmol/L (98-107); Estimated Glomerular Filt Rate > 60; Glucose 85 mg/dL (75-110); Potassium 3.4 mmol/L (3.4-5.0); Sodium 135 mmol/L (137-145)
--- NOTE | 2020-09-09 07:15 | PC.NURSE ---
pt sleeping on stretcher. no distress noted. waiting on ct results.
--- NOTE | 2020-09-09 08:00 | PC.NURSE ---
Dr. Reed at bedside to discuss results and treatment plan with pt.
[2020-09-09] MEDS: DOXYCYCLINE HYCLATE 100 MG TABLET PO (08:19)
[2020-09-09] MEDS: IBUPROFEN 600 MG TABLET PO (08:19)
== END 2020-09-09 08:34 | disposition home or self-care (01) ==
PROVIDERS: Emergency Medicine; Emergency Provider Emergency Medicine; PCP Emergency Medicine
DX: J18.9 Pneumonia, unspecified organism (principal); F20.9 Schizophrenia, unspecified; F17.210 Nicotine dependence, cigarettes, uncomplicated
CPT/HCPCS: 36415; 71260; 74177; 80053; 85025; 99284; A9270; Q9967

== ENCOUNTER 2020-09-20 03:45 | Emergency (ER) | payer MEDICARE, MEDICAID, SELFPAY ==
[2020-09-20 03:42] VITALS: BP 134/86; PULSE 86; RESP 16; TEMP 36.8; O2SAT 98
--- NOTE | 2020-09-20 03:54 | ED.GENADULT ---
HPI - General Adult General Chief complaint: Psychiatric Symptoms Stated complaint: psych eval Time Seen by Provider: 09/20/20 03:47 Source: patient Mode of arrival: ambulatory Limitations: no limitations History of Present Illness HPI narrative: Patient is a 39-year-old male complaining of not feeling well since he had his coronavirus shot 1 week ago. Patient also states that his doctor recently adjusted her psych medication, history of bipolar. Patient denies any suicidal or homicidal thoughts. Patient denies any headache, chest pain, shortness of breath, abdominal pain, nausea, vomiting, fever or chills. Related Data Home Medications Medication Instructions Recorded Confirmed divalproex 500 mg tablet,delayed 500 mg PO BID tablet 04/04/19 release haloperidol 5 mg tablet 5 mg PO DAILY 04/04/19 zolpidem 10 mg tablet See Rx Instructions .ROUTE .COMPLEX 04/04/19 aripiprazole mg PO 11/27/19 hydroxyzine HCl HS 11/27/19 lorazepam See Rx Instructions .ROUTE 11/27/19 .COMPLEX PRN paliperidone palm (3-month) mg IM 11/27/19 [Invega Trinza] buspirone mg TID 01/09/20 benztropine 04/22/20 Allergies Allergy/AdvReac Type Severity Reaction Status Date / Time No Known Allergies Allergy Mild Verified 09/09/20 04:34 Review of Systems Review of Systems: All systems reviewed & are unremarkable except as noted in HPI and below Constitutional: Constitutional: Denies body ache(s), Denies chills, Denies excessive sweating, Reports fatigue, Denies fever(s), Denies headache(s), Denies malaise, Denies weakness and Denies weight loss Eyes: Eyes: Denies blurry vision, Denies change in vision and Denies loss of vision ENT: Denies dizziness, Denies ear discharge, Denies headache(s), Denies lip swelling, Denies epistaxis, Denies nasal congestion, Denies neck pain, Denies throat swelling and Denies tongue swelling Cardiovascular: Cardiovascular: Denies chest pain, Denies chest pain at rest, Denies chest pain with activity, Denies diaphoresis, Denies rapid heart rate, Denies edema, Denies irregular heart rhythm, Denies lightheadedness, Denies palpitations, Denies dyspnea and Denies dyspnea on exertion Respiratory: Respiratory: Denies chest congestion, Denies cough, Denies hemoptysis, Denies dyspnea and Denies dyspnea on exertion Gastrointestinal: Gastrointestinal: Denies abdominal pain, Denies melena, Denies hematochezia, Denies diarrhea, Denies nausea, Denies vomiting and Denies hematemesis Musculoskeletal: Musculoskeletal: Denies abnormal gait, Denies deformity, Denies joint swelling, Denies limited range of motion, Denies neck pain and Denies numbness Neurologic: Denies Abnormal speech present, Denies abnormal gait, Denies confusion, Denies dizziness, Denies headache(s), Denies focal weakness, Denies loss of vision, Denies numbness, Denies Other visual disturbances, Denies Sensory deficit (Neuro) and Denies weakness Psychiatric: Psychiatric: Denies confusion, Denies depression, Denies auditory hallucinations, Denies homicidal ideation and Denies suicidal ideation Endocrine: Endocrine: Denies cold intolerance, Denies excessive sweating, Denies fatigue, Denies heat intolerance and Denies palpitations Hematologic/Lymphatic: Hematologic/Lymphatic: Denies easy bleeding and Denies easy bruising Allergic/Immunologic: Allergic/Immunologic: Denies lip swelling, Denies throat swelling and Denies tongue swelling PMFSH Past Medical History Medical History Schizophrenia Family History Family History Mother Patient's mother is in good health Social History Social History Smoking status: Current every day smoker Alcohol intake: current Substance use: current Substance use type: marijuana and prescription drug Gender identity (if verbalized by the
[2020-09-20 04:55] LABS: Basophils Absolute Auto 0.1 K/mm3 (0.0-0.1); Basophils Percent Auto 0.7 % (0.2-1.2); Eosinophils Absolute Auto 0.4 K/mm3 (0-0.3); Eosinophils Percent Auto 3.4 % (0-4.4); Hematocrit 42.4 % (42.0-52.0); Immature Granulocyte Absolute 0.03 K/mm3 (0.00-0.031); Immature Granulocyte Percent A 0.3 % (0-0.5); Lymphocytes Absolute Auto 2.56 K/mm3 (0.9-3.2); Lymphocytes Percent Auto 24.4 % (18.3-44.2); Mean Corpuscular Hemoglobin 29.7 pg (26-34); Mean Corpuscular Volume 89.8 fl (80-100); Mean Platelet Volume 10.4 fl (7.4-10.4); Monocytes Absolute Auto 1.7 K/mm3 (0.1-0.6); Monocytes Percent Auto 16.5 % (2.6-8.5); Neutrophils Absolute Auto 5.8 K/mm3 (1.3-6.7); Neutrophils Percent Auto 54.7 % (45.5-73.1); Platelet Count Result 274 k/mm3 (150-375); Red Blood Count 4.72 M/mm3 (4.6-6.20); Red Cell Distribution Width 13.9 % (11.5-14.5); White Blood Count 10.5 K/mm3 (4.5-10.0)
[2020-09-20 05:06] LABS: Amphetamine Screen Urine Negative (Negative); Barbiturate Screen Urine Negative (Negative); Benzodiazepines Screen Urine Negative (Negative); Cannabinoid Screen Urine Positive (Negative); Cocaine Screen Urine Positive (Negative); Methadone Screen Urine Negative (Negative); Opiate Screen Urine Negative (Negative); Phencyclidine Screen Urine Negative (Negative)
[2020-09-20 05:10] LABS: Alanine Aminotransferase 12 U/L (4-50); Albumin Level 4.1 g/dL (3.5-5.1); Alkaline Phosphatase 121 U/L (38-126); Anion Gap 5 mmol/L (8-16); Aspartate Amino Transferase 34 U/L (17-59); Bilirubin,Total 0.4 mg/dL (0.2-1.3); Blood Urea Nitrogen 8 mg/dL (9-20); Calcium 9.3 mg/dL (8.4-10.2); Carbon Dioxide 32 mmol/L (22-30); Chloride 102 mmol/L (98-107); Estimated CRCL calculation 116 ml/min; Estimated Glomerular Filt Rate > 60; Glucose 81 mg/dL (75-110); Potassium 3.6 mmol/L (3.4-5.0); Sodium 139 mmol/L (137-145)
[2020-09-20 05:51] VITALS: BP 131/84; PULSE 78; RESP 16; TEMP 36.7; O2SAT 98
== END 2020-09-20 06:34 | disposition home or self-care (01) ==
PROVIDERS: Emergency Provider Emergency Medicine
DX: F31.9 Bipolar disorder, unspecified (principal); F14.10 Cocaine abuse, uncomplicated; F20.9 Schizophrenia, unspecified; F17.200 Nicotine dependence, unspecified, uncomplicated; Z79.899 Other long term (current) drug therapy
CPT/HCPCS: 36415; 80053; 80307; 85025; 99283

== ENCOUNTER 2020-12-01 10:44 | Emergency (ER) | payer MEDICARE, MEDICAID, SELFPAY ==
--- NOTE | ~2020-12-01 | US_ITS ---
EXAMINATION: US scrotum doppler DATE: 12/01/2020 14:23 INDICATION: Right testicular pain. TECHNIQUE: Grayscale and Doppler ultrasound images of the testes were obtained. COMPARISON: Testicular ultrasound 06/14/2008, CT abdomen and pelvis 09/09/2020 FINDINGS: The right testis measures 4.0 x 2.0 x 4.0 cm. The left testis measures 4.2 x 2.1 x 3.0 cm. There is normal vascular flow to both testes. The right epididymis is normal with normal vascular pearl w. The left epididymis is normal with normal vascular flow. There is no hydrocele. There are bilatera l varicoceles. IMPRESSION: 1. Bilateral varicoceles. Reviewed, dictated and finalized at location A. IMPRESSION: 1. Bilateral varicoceles.
[2020-12-01 11:39] VITALS: BP 111/68; PULSE 69; RESP 20; TEMP 36.9; O2SAT 98
[2020-12-01 14:15] LABS: Add Urine Microscopic? NO; Appearance Urine Clear (Clear); Bilirubin Urine Negative (Negative); Blood Urine Negative (Negative); Color Urine Yellow (Yellow); Glucose Urine UA Negative (Negative); Ketones Urine Negative (Negative); Leukocyte Esterase Ur Negative LEU/UL (Negative); Nitrate Urine Negative (Negative); Protein Urine Negative (Negative); Specific Grav Ur 1.012 (1.001-1.035); Urobilinogen Urine Negative mg/dL (<2.0)
--- NOTE | 2020-12-01 14:19 | ED.GENADULT ---
HPI - General Adult General Chief complaint: Unspecified Stated complaint: groin and abd pain rt side Time Seen by Provider: 12/01/20 12:44 Source: patient Mode of arrival: ambulatory Limitations: no limitations History of Present Illness HPI narrative: 40-year-old male Basically healthy Complains of a 3 to 4-day history of pain in his right groin radiating into his right testicle He does not have hematuria or dysuria He does not have any discharge or rash He does not have a fever nausea or vomiting, he had 1 loose stool He says that walking makes it worse but nothing makes it better Related Data Home Medications Medication Instructions Recorded Confirmed divalproex 500 mg tablet,delayed 500 mg PO BID tablet 04/04/19 12/01/20 release haloperidol 5 mg tablet 5 mg PO BID 04/04/19 12/01/20 paliperidone palm (3-month) mg IM 11/27/19 [Invega Trinza] buspirone 7.5 mg PO TID 01/09/20 12/01/20 benztropine 0.5 mg PO BID 04/22/20 12/01/20 trazodone 50 mg PO DAILY 12/01/20 12/01/20 Allergies Allergy/AdvReac Type Severity Reaction Status Date / Time No Known Allergies Allergy Mild Verified 12/01/20 11:42 Review of Systems Review of Systems: All systems reviewed & are unremarkable except as noted in HPI and below Constitutional: Constitutional: Reports no additional constitutional complaints, Denies chills, Denies fever(s) and Denies headache(s) Eyes: Eyes: Reports no additional eye complaints and Denies change in vision ENT: Denies headache(s) and Denies sore throat Cardiovascular: Cardiovascular: Denies chest pain and Denies dyspnea Respiratory: Respiratory: Denies cough and Denies dyspnea Gastrointestinal: Gastrointestinal: Denies abdominal pain, Reports loose stools, Denies nausea and Denies vomiting Genitourinary: Genitourinary: Denies genital lesions, Denies dysuria, Denies flank pain, Reports testicular pain and Denies urinary frequency Musculoskeletal: Musculoskeletal: Denies deformity, Denies arthralgias, Denies joint swelling and Denies numbness Integumentary/Breasts: Skin/Breast: Denies rash and Denies wounds Neurologic: Denies headache(s), Denies focal weakness and Denies numbness Psychiatric: Psychiatric: Reports no additional psychiatric complaints Endocrine: Endocrine: Reports no additional endocrine complaints Hematologic/Lymphatic: Hematologic/Lymphatic: Reports no additional hematologic/lymphatic complaints Allergic/Immunologic: Allergic/Immunologic: Reports no additional allergic/immunologic complaints [facility] Past Medical History Medical History Schizophrenia Family History Family History Mother Patient's mother is in good health Social History Social History Smoking status: Current every day smoker Alcohol intake: current Substance use: current Substance use type: marijuana and prescription drug Gender identity (if verbalized by the patient): Male Exam Const: General: cooperative and no acute distress Orientation/consciousness: patient oriented x3 (alert) HENMT: Head: normal to inspection, normocephalic and atraumatic Ears: external ears normal General nose exam: no epistaxis Eyes: Conjunctivae: conjunctivae normal EOM: EOMs intact bilaterally Neck: Neck: normal visual inspection, supple and no JVD Resp: Effort & Inspection: normal respiratory effort and not labored GI: GI Palp: Yes Soft to palpation, No Tenderness to palpation present (GI) and No Guarding due to palpation present (GI) : Penis: No Genital lesions present Testes: no epididymal induration, testicular tenderness and other (Right testicle is tender and questionably high riding, not indurated) Skin: General skin exam: normal color and no rashes or lesions noted Neuro: General: patient orient
[2020-12-01 15:22] VITALS: BP 126/87; PULSE 55; RESP 20; O2SAT 99
[2020-12-01 16:18] VITALS: BP 128/82; PULSE 80; RESP 20; O2SAT 100
== END 2020-12-01 16:19 | disposition home or self-care (01) ==
PROVIDERS: Emergency Provider Emergency Medicine; PCP Emergency Medicine
DX: I86.1 Scrotal varices (principal); F20.9 Schizophrenia, unspecified; F17.210 Nicotine dependence, cigarettes, uncomplicated
CPT/HCPCS: 76870; 81003; 87491; 87591; 93976; 99284

== ENCOUNTER 2021-03-15 02:10 | Emergency (ER) | payer MEDICARE, MEDICAID, SELFPAY ==
--- NOTE | ~2021-03-15 | XR_ITS ---
EXAMINATION: XR chest 2V EXAM DATE: 03/15/2021 02:50 INDICATION: Cough, midsternal chest pain. TECHNIQUE: Frontal and lateral projections of the chest obtained and reviewed. Comparison is made to prior examination from 02/07/2017. FINDINGS: There is subacute right 9th rib fracture laterally, overlying callus formation. The lungs are clear. There are no pleural effusions. The cardiomediastinal silhouette is within normal limits . There is no pneumothorax suspected. IMPRESSION: Subacute right 9th rib fracture. Clear lungs. Reviewed, dictated and finalized at location A. PLATFORM SUPERVISOR
[2021-03-15 02:12] VITALS: BP 126/77; PULSE 112; RESP 19; TEMP 36.1; O2SAT 99
--- NOTE | 2021-03-15 02:27 | ECG_ITS ---
Measurements Intervals [place] Rate: 95 P: 72 AK: 121 QRS: 49 QRSD: 87 T: 50 QT: 351 QTc: 442 Interpretive Statements SINUS RHYTHM ST ELEVATION IN DIFFUSE LEADS, PROBABLY EARLY REPOLARIZATION BORDERLINE ECG Electronically Signed On 03-15-2021 8:00:21 [employer] by Ja Moreno D.O.
[2021-03-15 02:30] VITALS: BP 141/90; PULSE 80; RESP 18; TEMP 36.7; O2SAT 100
--- NOTE | 2021-03-15 02:43 | ED.GENADULT ---
HPI - General Adult General Chief complaint: Psychiatric Symptoms Stated complaint: h/a, cough, chills Time Seen by Provider: 03/15/21 02:18 Source: patient History of Present Illness HPI narrative: Patient with a history of schizophrenia and bipolar presents with multiple complaints. Reports he was recently released from [facility] for suicidal ideation since being home he voiced concerns that people are taking his medications and his mind is not right. He would like someone to Freeze his mind. He is also concerned about chest pain and shortness of breath reports concerns that he has a pneumonia. Reports cough has not noted any fevers. Also reports burning and irritation in his groin feels like his hernias are acting up. Reports some abdominal pain described as a burning sensation. Reports he does not know exactly what is going on but he would like some help. Related Data Home Medications Medication Instructions Recorded Confirmed divalproex 500 mg tablet,delayed 500 mg PO BID tablet 04/04/19 12/01/20 release haloperidol 5 mg tablet 5 mg PO BID 04/04/19 12/01/20 paliperidone palm (3-month) mg IM 11/27/19 [Invega Allieza] buspirone 7.5 mg PO TID 01/09/20 12/01/20 benztropine 0.5 mg PO BID 04/22/20 12/01/20 trazodone 50 mg PO DAILY 12/01/20 12/01/20 Allergies Allergy/AdvReac Type Severity Reaction Status Date / Time No Known Allergies Allergy Mild Verified 12/01/20 11:42 Review of Systems Review of Systems: CONSTITUTIONAL: Denies fever, chills, or sweats. EYES: Denies visual changes, redness, or discharge. ENT: Denies rhinorrhea, congestion, sore throat, or otalgia. CARDIOVASCULAR: Denies palpitations, or edema. RESPIRATORY: Reports cough and shortness of breath GASTROINTESTINAL: Denies nausea, vomiting, or diarrhea. GENITOURINARY: Denies hematuria. SKIN: Denies rash or itching. MUSCULOSKELETAL: Denies back pain, joint pain, or myalgia. NEUROLOGIC: Denies headache, numbness, dizziness, or weakness. PSYCHIATRIC: Denies anxiety or depression., Denies any suicidal ideation or homicidal ideation ROS unobtainable: Yes other (Review of systems may be limited patient thought processes tangential) [facility] Past Medical History Medical History Schizophrenia Family History Family History Mother Patient's mother is in good health Social History Social History Smoking status: Current every day smoker Alcohol intake: current Substance use: current Substance use type: marijuana and prescription drug Gender identity (if verbalized by the patient): Male Sexual Orientation (if Verbalized by the Patient): Straight or Heterosexual Exam Narrative: GENERAL: Well-appearing, well-nourished, and in no acute distress. HEAD: Normocephalic, atraumatic. EYES: PERRLA and EOMI. ENT: Nares clear, no rhinorrhea or epistaxis. Mucous membranes moist. NECK: Supple. No masses. No JVD CHEST: Clear to auscultation. No respiratory distress. No wheezes rales or rhonchi HEART: Regular rate and rhythm. No murmur heard. Normal peripheral pulses. ABDOMEN: Soft, nontender, nondistended, normal active bowel sounds. EXTREMITIES: Normal range of motion. No edema. SKIN: Warm, dry, no rash. NEURO: No focal deficits. Alert and oriented x3. PSYCH: Normal mood and affect. Course Reevaluation(s) Reevaluation #1: Patient is sleeping comfortably patient is medically stable and appropriate for crisis evaluation. Crisis to be contacted for patient's tangible thought process, patient's concerns for mind not being right Date: 03/15/21 Time: 03:58 Vital Signs Vital signs: Vital Signs Temperature 36.1 C L 03/15/21 02:12 Pulse Rate 112 H 03/15/21 02:12 Respiratory Rate 19 03/15/21 02:12 Blood Pressure 126/77 03/15/21 02:12 Pulse Oximetry 99 03/15/21 02:12
[2021-03-15 03:05] LABS: Basophils Percent Auto 0.3 % (0.2-1.2); Eosinophils Percent Auto 0.2 % (0-4.4); Hemoglobin 14.8 g/dL (14.0-18.0); Immature Granulocyte Absolute 0.03 K/mm3 (0.00-0.031); Immature Granulocyte Percent A 0.3 % (0-0.5); Lymphocytes Absolute Auto 2.74 K/mm3 (0.9-3.2); Lymphocytes Percent Auto 28.1 % (18.3-44.2); Mean Corpuscular HGB Conc 35.2 g/dl (32-36); Mean Corpuscular Hemoglobin 30.8 pg (26-34); Mean Corpuscular Volume 87.5 fl (80-100); Mean Platelet Volume 10.8 fl (7.4-10.4); Monocytes Absolute Auto 1.4 K/mm3 (0.1-0.6); Monocytes Percent Auto 14.5 % (2.6-8.5); Neutrophils Absolute Auto 5.5 K/mm3 (1.3-6.7); Neutrophils Percent Auto 56.6 % (45.5-73.1); Platelet Count Result 212 k/mm3 (150-375); Red Cell Distribution Width 13.8 % (11.5-14.5); White Blood Count 9.8 K/mm3 (4.5-10.0)
[2021-03-15 03:07] LABS: Add Urine Microscopic? YES; Appearance Urine Clear (Clear); Bilirubin Urine Negative (Negative); Blood Urine Negative (Negative); Color Urine Straw (Yellow); Glucose Urine UA Negative (Negative); Ketones Urine Trace mg/dL (Negative); Leukocyte Esterase Ur Negative LEU/UL (Negative); Nitrate Urine Negative (Negative); Protein Urine Negative (Negative); RBC Urine 0-2 /hpf (0-2); Urobilinogen Urine Negative mg/dL (<2.0)
[2021-03-15 03:19] LABS: Specific Grav Ur 1.004 (1.001-1.035)
[2021-03-15 03:23] LABS: Alanine Aminotransferase 17 U/L (4-50); Albumin Level 4.7 g/dL (3.5-5.1); Alkaline Phosphatase 89 U/L (38-126); Anion Gap 9 mmol/L (8-16); Aspartate Amino Transferase 35 U/L (17-59); Bilirubin,Total 0.7 mg/dL (0.2-1.3); Blood Urea Nitrogen 6 mg/dL (9-20); Calcium 9.3 mg/dL (8.4-10.2); Carbon Dioxide 23 mmol/L (22-30); Chloride 101 mmol/L (98-107); Estimated CRCL calculation 114 ml/min; Estimated Glomerular Filt Rate > 60; Glucose 80 mg/dL (65-110); Potassium 3.7 mmol/L (3.4-5.0); Sodium 133 mmol/L (137-145)
[2021-03-15 03:40] LABS: Acetaminophen < 10 ug/mL (10-30); Ethanol < 10 mg/dL (<10); Salicylate < 1.0 mg/dL (2-20)
[2021-03-15 03:50] LABS: Amphetamine Screen Urine Positive (Negative); Barbiturate Screen Urine Negative (Negative); Benzodiazepines Screen Urine Negative (Negative); Cannabinoid Screen Urine Positive (Negative); Cocaine Screen Urine Negative (Negative); Methadone Screen Urine Negative (Negative); Opiate Screen Urine Negative (Negative); Phencyclidine Screen Urine Negative (Negative)
--- NOTE | 2021-03-15 05:26 | PC.NURSE ---
patient woke up and gathered his belongings and stated to cancel all of his appointments and he was leaving. patient walked out of ER through exit to lobby and pushed the sliding glass doors open. he briefly returned to the Er and climbed over the intake desk to retrieve his keys. after doing so, he left the Er by climbing back over the intake desk. Giacomo BEVERLY called at this time
== END 2021-03-15 05:29 | disposition left against medical advice (07) ==
LOC: ANHED 02:40
PROVIDERS: Emergency Provider Emergency Medicine
DX: R05.9 Cough, unspecified (principal); R06.02 Shortness of breath; F19.10 Other psychoactive substance abuse, uncomplicated; F20.9 Schizophrenia, unspecified; F31.9 Bipolar disorder, unspecified; F17.200 Nicotine dependence, unspecified, uncomplicated; R94.31 Abnormal electrocardiogram [ECG] [EKG]; Z79.899 Other long term (current) drug therapy
CPT/HCPCS: 36415; 71046; 80053; 80307; 81001; 84443; 85025; 87491; 87591; 93005; 99284; C9803; U0003; U0005

== ENCOUNTER 2021-06-07 03:26 | Emergency (ER) | payer MEDICARE, MEDICAID, SELFPAY ==
--- NOTE | ~2021-06-07 | CT_ITS ---
EXAMINATION: CT brain wo con INDICATION: Head injury COMPARISON: 0356 hours TECHNIQUE: Standard unenhanced head CT. The dose-length product (DLP) was 605.33 mGy-cm. The mA was a djusted according to patient size. Iterative reconstruction technique was employed. FINDINGS: There is no intracranial hemorrhage, acute infarction, or abnormal mass lesion. The ventric les are normal. There is no abnormal mass effect or midline shift. The perez-white matter differentiat ion is normal. The basal cisterns are patent. The orbits are normal. The paranasal sinuses, mastoids and calvarium are normal. IMPRESSION: 1. No acute intracranial abnormality. Reviewed, dictated and finalized at location A. OPEDIC CODER
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
[2021-06-07 03:26] VITALS: BP 134/102; PULSE 74; RESP 14; TEMP 35.5; O2SAT 97
[2021-06-07] MEDS: ACETAMINOPHEN 325 MG TABLET 650 MG PO (03:38)
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
[2021-06-07 06:16] VITALS: BP 125/75; PULSE 89; RESP 12; O2SAT 98
[2021-06-07 08:00] VITALS: RESP 16; O2SAT 98
--- NOTE | 2021-06-07 08:38 | PCCCNOTE ---
Called from ED Charge about resources for homeless patient that is cleared for DC. Called to 211, spoke with [facility] who searched and could not find any open spaces -all at capacity for [facility]. Called to [facility], they are open for walk-in day program. Spoke with patient in ED waiting room and provided resources print out, educated about [address] [facility] is open for walk in day program and night if check in between 7pm-9pm. Address for [facility] is on print out. ED security received a call from patient's brother that will come and pick him up.
== END 2021-06-07 08:00 | disposition home or self-care (01) ==
PROVIDERS: Emergency Provider Emergency Medicine
DX: R07.0 Pain in throat (principal); S06.9X6 Unspecified intracranial injury with loss of consciousness greater than 24 hours without return to pre-existing conscious level with patient surviving; F20.9 Schizophrenia, unspecified; F17.200 Nicotine dependence, unspecified, uncomplicated; Y04.2XXA Assault by strike against or bumped into by another person, initial encounter
CPT/HCPCS: 70450; 99284; A9270

== ENCOUNTER 2021-07-11 12:08 | Emergency (ER) | payer MEDICARE, MEDICAID, SELFPAY ==
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
[2021-07-11 12:28] VITALS: BP 135/87; PULSE 122; RESP 20; TEMP 36.9; O2SAT 100
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
[2021-07-11 13:29] LABS: Basophils Percent Auto 0.4 % (0.2-1.2); Eosinophils Percent Auto 0.2 % (0-4.4); Hematocrit 39.8 % (42.0-52.0); Hemoglobin 13.4 g/dL (14.0-18.0); Immature Granulocyte Absolute 0.03 K/mm3 (0.00-0.031); Immature Granulocyte Percent A 0.3 % (0-0.5); Lymphocytes Absolute Auto 2.78 K/mm3 (0.9-3.2); Mean Corpuscular HGB Conc 33.7 g/dl (32-36); Mean Corpuscular Volume 89.2 fl (80-100); Mean Platelet Volume 9.8 fl (7.4-10.4); Monocytes Percent Auto 11.4 % (2.6-8.5); Neutrophils Absolute Auto 5.1 K/mm3 (1.3-6.7); Neutrophils Percent Auto 56.7 % (45.5-73.1); Platelet Count Result 344 k/mm3 (150-375); Red Blood Count 4.46 M/mm3 (4.6-6.20); Red Cell Distribution Width 14.1 % (11.5-14.5)
[2021-07-11 13:39] LABS: Add Urine Microscopic? NO; Alanine Aminotransferase 26 U/L (4-50); Albumin Level 4.5 g/dL (3.5-5.1); Alkaline Phosphatase 85 U/L (38-126); Anion Gap 6 mmol/L (8-16); Appearance Urine Clear (Clear); Aspartate Amino Transferase 38 U/L (17-59); Bilirubin Urine Negative (Negative); Bilirubin,Total 0.4 mg/dL (0.2-1.3); Blood Urea Nitrogen 9 mg/dL (9-20); Blood Urine Negative (Negative); Calcium 8.8 mg/dL (8.4-10.2); Carbon Dioxide 26 mmol/L (22-30); Chloride 100 mmol/L (98-107); Color Urine Yellow (Yellow); Estimated CRCL calculation 126 ml/min; Estimated Glomerular Filt Rate > 60; Glucose 77 mg/dL (65-110); Glucose Urine UA Negative (Negative); Ketones Urine Negative (Negative); Leukocyte Esterase Ur Negative LEU/UL (Negative); Nitrate Urine Negative (Negative); Potassium 3.7 mmol/L (3.4-5.0); Protein Urine Negative (Negative); Sodium 132 mmol/L (137-145); Specific Grav Ur 1.004 (1.001-1.035); Urobilinogen Urine Negative mg/dL (<2.0)
[2021-07-11 13:41] LABS: Acetaminophen < 10 ug/mL (10-30); Ethanol < 10 mg/dL (<10); Salicylate < 1.0 mg/dL (2-20)
[2021-07-11 13:47] LABS: Amphetamine Screen Urine Negative (Negative); Barbiturate Screen Urine Negative (Negative); Benzodiazepines Screen Urine Negative (Negative); Cannabinoid Screen Urine Positive (Negative); Cocaine Screen Urine Positive (Negative); Methadone Screen Urine Negative (Negative); Opiate Screen Urine Negative (Negative); Phencyclidine Screen Urine Negative (Negative)
--- NOTE | 2021-07-11 13:59 | PC.NURSE ---
sitter at bedside.
[2021-07-11] MEDS: OLANZapine 5 MG TABLET 10 MG PO (14:08)
[2021-07-11 14:55] LABS: SARS-CoV-2 RNA PCR Negative
--- NOTE | 2021-07-11 15:20 | PC.NURSE ---
pt walking out of room and requesting more food. pt was given a meal tray at 1400. pt cussing at staff. gear hobber operator and security present. Dr. Busch going to talk with patient.
--- NOTE | 2021-07-11 15:25 | PC.NURSE ---
Dr. Busch spoke w/ pt and deemed it appropriate for pt to leave AMA. pt denying any SI/HI at this time. pt refusing to sign AMA papers. pt given belongings and left department.
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
--- NOTE | 2021-07-11 16:57 | PC.NURSE ---
ordered pt safety dinner tray.
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
[2021-07-11 22:00] VITALS: BP 121/71; PULSE 84; RESP 18; TEMP 36.6; O2SAT 98
[2021-07-11] MEDS: diphenhydrAMINE HCl CAP 25 MG CAPSULE PO (22:34)
--- NOTE | 2021-07-12 06:44 | PC.NURSE ---
pt states he doesn't take the medications ordered. pt cannot recall exact meds he normally takes. pt becoming slightly agitated and tired of waiting for placement and wants to leave. pt cleared and evaluated by already by crisis. pt voluntary and doesn't have to stay per provider. pt wanting to leave the ED. pt currently denies any SI/HI. pt has had no SI/HI during shift. kavitha aware and patient to leave ED after getting dressed.
== END 2021-07-12 06:57 | disposition home or self-care (01) ==
PROVIDERS: Emergency Provider Emergency Medicine
DX: R45.1 Restlessness and agitation (principal); F14.10 Cocaine abuse, uncomplicated; S09.93XA Unspecified injury of face, initial encounter; Z20.822 Contact with and (suspected) exposure to COVID-19; F20.9 Schizophrenia, unspecified; F17.200 Nicotine dependence, unspecified, uncomplicated; Z79.899 Other long term (current) drug therapy
CPT/HCPCS: 36415; 70450; 80053; 80307; 81003; 84443; 85025; 99284; A9270; C9803; U0003; U0005

== ENCOUNTER 2022-02-09 01:34 | Emergency (ER) | payer MEDICARE, MEDICAID, SELFPAY ==
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
[2022-02-09 02:04] VITALS: BP 152/87; PULSE 102; RESP 16; TEMP 36.2; O2SAT 97
[2022-02-09 03:21] VITALS: BP 163/111; PULSE 93; RESP 16; O2SAT 100
[2022-02-09 03:31] VITALS: BP 151/95
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
[2022-02-09] MEDS: ACETAMINOPHEN 500 MG TABLET 1000 MG PO (05:07)
[2022-02-09] MEDS: IBUPROFEN 400 MG TABLET 800 MG PO (05:07)
== END 2022-02-09 05:26 | disposition home or self-care (01) ==
PROVIDERS: Emergency Provider Emergency Medicine
DX: R68.84 Jaw pain (principal); Y04.2XXA Assault by strike against or bumped into by another person, initial encounter; F20.9 Schizophrenia, unspecified; F17.200 Nicotine dependence, unspecified, uncomplicated
CPT/HCPCS: 70110; 99283; A9270

== ENCOUNTER 2022-05-22 12:50 | Outpatient (CLI) | payer MEDICARE, MEDICAID, SELFPAY ==
[2022-05-25 08:08] LABS: Carbamazepine Tegretol <0.2 mcg/mL (4.0-12.0)
== END 2022-05-22 12:51 | disposition home or self-care (01) ==
PROVIDERS: Anesthesiology; PCP Nurse Practitioner; Visit Provider Surgery
DX: K40.90 Unilateral inguinal hernia, without obstruction or gangrene, not specified as recurrent (principal); Z01.818 Encounter for other preprocedural examination
CPT/HCPCS: 36415; 80156; 86850; 86900; 86901

== ENCOUNTER 2022-09-23 01:20 | Day surgery (SDC) | payer MEDICARE, MEDICAID, SELFPAY ==
--- NOTE | 2022-05-19 14:00 | SUR.PREOP ---
Addendum entered by Vonnie Cooley RN 05/28/22 11:26: PT TO ARRIVE AT 1230 ON 06/11/22 FOR SURGERY AT 1430. Original Note: Report to the Outpatient Waiting Room, entrance under the green pavilion located off [facility], at time 1030 on date 05/26/22. Planned Procedure Time: 1230. Time changes happen often and if your time is changed the preop area will call you the afternoon before. - You and your visitor will be asked to self-screen and do not enter if you have any COVID symptoms. - Only one visitor is requested with a max of two and NO children visitors are allowed at this time. - The patient visitor may be requested to leave or wait in car when not with patient due to distancing restrictions. - A mask is optional within the hospital at this time. Patients may have clear liquids (water, carbonated beverages, clear teas, apple juice) until 3 hours prior to surgery with a maximum of 20 ounces. - NO CLEAR LIQUIDS AFTER 0930 - No food from midnight until time of surgery - Infants may have breast milk until 4 hours before surgery, formula 6 hours prior to surgery. - Children will be allowed to drink immediately following surgery. If applicable, please bring a bottle or sippy cup to assist with drinking. Juice, water, soda, and popsicles are readily available. For infants on formula, please bring formula the day of surgery. Pacifiers are allowed. Take the following medications with a SIP of water the morning of surgery: BENZTROPINE, DIVALPROEX, HALOPERIDOL, HYDROXYZINE DO NOT STOP ANY OF YOUR OTHER PRESCRIPTION MEDICATIONS PRIOR TO SURGERY Please no make-up, nail divehi, hairspray, perfume, deodorant, or body powder the day of surgery. No jewelry (including any body piercings) or valuables the day of surgery, leave them at home. Please take a shower or bath the night before, or the morning of, surgery with HIBICLENS, an antibacterial soap. Wear comfortable, loose fitting clothing. Children are encouraged to wear pajamas. - Jewelry must be removed prior to entering the operating room. Rings and piercings that are not removed may be cut off. - The hospital will not accept responsibility for valuables. - Please leave all valuables, including medications, at home the day of surgery. If you are going home after surgery, a licensed automation driver must drive you home. - NO public transportation without another adult if you receive anesthesia. - We recommend that an adult stay with you for 24 hours following discharge. - We also recommend that you do not drive, make important decision, drink alcoholic beverages, or take any drugs that were not prescribed by your health care provider for at least 24 hours after your discharge time. For Pediatric surgeries, we recommend two adults accompany the child home. Follow any additional instructions given to you from your surgeon. If you or anyone in your household have experienced Covid symptoms in the past week, please notify your surgeon or the nurse liaison at the phone number below for possible testing. Telephone instructions given to DIMITRI ANGELES and asked if any additional questions and then verbalized understanding. Patient advised to call surgeon office or pre surgery nurse liaison [phone] if any additional questions.
[2022-05-19 14:18] VITALS: BMI 33.5
--- NOTE | 2022-05-28 11:25 | PC.NURSE ---
Pt states surgery was re-scheduled due to upper respiratory infections - symptoms have resolved. No other medication or health history changes since initial interview. New pre-op instructions reviewed with pt. Pt denies further questions at this time.
[2022-09-15 14:17] VITALS: BMI 33.5
--- NOTE | 2022-09-15 14:23 | PC.NURSE ---
Report to the Outpatient Waiting Room, entrance under the green pavilion located off [facility], at time 0830 on date 09/23/22. Planned Procedure Time: 1030. Time changes happen often and if your time is changed the preop area will call you the afternoon before. - You and your visitor will be asked to self-screen and do not enter if you have any COVID symptoms. - A mask is optional within the hospital at this time. Patients may have clear liquids (water, carbonated beverages, clear teas, apple juice) until 3 hours prior to surgery with a maximum of 20 ounces. - No food from midnight until time of surgery Take the following medications with a SIP of water the morning of surgery: BENZTROPINE, DIVALPROEX, HALOPERIDOL, HYDROXYZINE/TRAZODONE IF NEEDED DO NOT STOP ANY OF YOUR OTHER PRESCRIPTION MEDICATIONS PRIOR TO SURGERY EXCEPT THE FOLLOWING Medications to discontinue per physician: N/A Date to take last dose: N/A Please no make-up, nail greenlandic, hairspray, perfume, deodorant, or body powder the day of surgery. No jewelry (including any body piercings) or valuables the day of surgery, leave them at home. Please take a shower or bath the night before, or the morning of, surgery with an antibacterial soap (HIBICLENS). Wear comfortable, loose fitting clothing. - Jewelry must be removed prior to entering the operating room. Rings and piercings that are not removed may be cut off. - The hospital will not accept responsibility for valuables. - Please leave all valuables, including medications, at home the day of surgery. If you are going home after surgery, a licensed car driver must drive you home. - NO public transportation without another adult if you receive anesthesia. - We recommend that an adult stay with you for 24 hours following discharge. - We also recommend that you do not drive, make important decision, drink alcoholic beverages, or take any drugs that were not prescribed by your health care provider for at least 24 hours after your discharge time. Follow any additional instructions given to you from your surgeon. If you or anyone in your household have experienced Covid symptoms in the past week, please notify your surgeon or the nurse liaison at the phone number below for possible testing. Telephone instructions given to PT - DIMITRI ANGELES and asked if any additional questions and then verbalized understanding. Patient advised to call surgeon office or pre surgery nurse liaison [phone] if any additional questions.
--- NOTE | 2022-09-22 11:09 | PM.SD2 ---
Same Day Admit/Disch: HPI History of Present Illness Chief complaint: right inguinal hernia Narrative: Dominguez Hopper is a 42 year old male who has noticed right groin pain and some difficulty urinating urinating for nearly a year. He has a history of a previous left inguinal hernia and repair in 2007. He was seen in the office and found to have a tender but reducible right inguinal hernia. After discussion, he is taken to surgery now for robotic laparoscopic repair with mesh. [facility] Past Medical History Medical History (Updated 09/23/22 @ 12:29 by Leonardo Lagos MD) Schizophrenia Surgical History Surgical History (Reviewed 05/14/22 @ 10:26 by Casi Lyn [facility]) History of inguinal hernia repair Left inguinal hernia repair with mesh ~[address] Lagos Family History Family History Mother Patient's mother is in good health Social History Social History (Reviewed 05/14/22 @ 10:26 by Casi Lyn [facility]) Smoking packs per day: 1 Smoking cigarettes per day: 20.0 Years smoked: 15 Smoking pack-years: 15.00 Smoking status: Current every day smoker Tobacco type: cigarettes Substance use: never Substance use type: does not use Gender identity (if verbalized by the patient): Male Sexual Orientation (if Verbalized by the Patient): Straight or Heterosexual Spiritual care concerns: No Same Day Admit/Disch: Med Pre-admit Medications Home Medications Medication Instructions Recorded Confirmed Type divalproex 500 mg tablet,delayed 500 mg PO BID 04/04/19 09/23/22 History release haloperidol 5 mg tablet 5 mg PO BID 04/04/19 09/23/22 History paliperidone palm (3-month) 546 546 mg IM [id number] 11/27/19 09/15/22 History mg/1.75 mL intramuscular syringe (Eliz[place]ethega Allieza) benztropine 0.5 mg tablet 0.5 mg PO BID 04/22/20 09/23/22 History trazodone 50 mg tablet 50 mg PO DAILY 12/01/20 09/23/22 History hydroxyzine HCl 25 mg tablet 25 mg PO BID PRN ANXIETY 05/14/22 09/23/22 History ketorolac 10 mg tablet 10 mg PO Q6H 4 days #16 tabs 09/23/22 Rx oxycodone-acetaminophen 5 mg-325 0.5 - 1 tablet PO Q6H PRN pain #10 09/23/22 Rx mg tablet tabs Exam Const: General: comfortable, no acute distress, alert and awake HENMT: Head: normocephalic and atraumatic Mouth: Yes Normal oral and palatal mucosa present Eyes: Conjunctivae: conjunctivae normal Pupils: Equal, round and reactive pupils present EOM: EOMs intact bilaterally Neck: Neck: normal visual inspection, no lymphadenopathy and nontender Resp: Effort & Inspection: normal respiratory effort Auscultation: clear to auscultation bilaterally Cardio: Rate: regular rate Rhythm: regular rhythm Heart sounds: no gallops, no murmurs and no rubs GI: Inspection: non-distended GI Palp: Yes Soft to palpation, No Tenderness to palpation present (GI), No Hepatomegaly present and No Splenomegaly present : Male General Exam: Yes normal external exam (Normal inspection) and Yes hernia (Difficult to palpate but with hard cough right inguinal hernia can be noted) Penis: Yes normal penis Scrotum: scrotum normal Testes: Testes normal Skin: Lesions: no lesions Rashes: no rashes Neuro: General: no focal motor deficits and CN's II-XI intact bilaterally Cranial nerves: Yes Equal, round and reactive pupils present, Yes Bilaterally intact EOM present, Yes facial symmetry and Yes Midline tongue present Speech: normal speech Motor exam (neuro): 5/5 motor strength present throughout and Motor abnormalities not present Extrem: General: no clubbing, cyanosis or edema and edema Psych: Affect: normal affect Thought process: Normal thought process present Insight: Good insight present (Psych) DS: Summary Time Spent with Patient Time attestation: Total time spent providing and/or coordinating discharge services: DS: Admitting Diagnosis Discharge Date 09/23/2022 Admitting Diagno
[2022-09-23] VITALS (9 sets, daily range): BP systolic 100–137; BP diastolic 68–88; PULSE 62–77; RESP 11–20; TEMP 36–36.6; O2SAT 97–100
--- NOTE | 2022-09-23 09:18 | WPDHPUPDATE1 ---
History and Physical Update Update Date/Time: 09/23/22 09:18 History and Physical has been reviewed, including an updated exam of the patient. There are NO changes in the patient's condition. Risks, benefits, and alternatives have been discussed and questions answered. Patient agrees to proceed with procedure.
[2022-09-23] MEDS: ACETAMINOPHEN 500 MG TABLET 1000 MG PO (09:29)
[2022-09-23] MEDS: LACTATED RINGERS 1,000 ML 30 ML IV CONT ×2 (09:35→11:58)
[2022-09-23] MEDS: KETOROLAC 15 MG/ML VIAL (*BKC) IV PUSH (09:40)
--- NOTE | 2022-09-23 09:46 | WPDANESEPPF ---
Anes - Initial Pre Proc Eval Procedure: Operation Date: 06/11/22 14:30 Proposed Procedures p Robotic Laparoscopic Right Inguinal Hernia Repair - Leonardo Lagos MD Operation Date: 09/23/22 10:30 Proposed Procedures p Robotic Assisted Laparoscopic Repair Right Inguinal Hernia - Leonardo Lagos MD Date/Time: 09/23/22 09:46 Surgeon: Leonardo Lagos MD Pre Op Diagnosis: right inguinal hernia Patient Data Age: 42 Gender: M Height: 1.7 m Weight: 97 kg Allergies Allergy/AdvReac Type Severity Reaction Status Date / Time Penicillins AdvReac Unknown Nausea and Verified 09/23/22 09:26 Vomiting Home Medications Medication Instructions Recorded Confirmed Type divalproex 500 mg tablet,delayed 500 mg PO BID 04/04/19 09/23/22 History release haloperidol 5 mg tablet 5 mg PO BID 04/04/19 09/23/22 History paliperidone palm (3-month) 546 546 mg IM [id number] 11/27/19 09/15/22 History mg/1.75 mL intramuscular syringe (Invega Allieza) benztropine 0.5 mg tablet 0.5 mg PO BID 04/22/20 09/23/22 History trazodone 50 mg tablet 50 mg PO DAILY 12/01/20 09/23/22 History hydroxyzine HCl 25 mg tablet 25 mg PO BID PRN ANXIETY 05/14/22 09/23/22 History Patient hx anesthesia problems: none Family hx anesthesia problems: none Results Review: All pre-operative results and documents have been reviewed as part of the pre-operative evaluation. [facility] Past Medical History Medical History (Updated 05/14/22 @ 10:48 by Marquita Vera) Schizophrenia Surgical History Surgical History History of inguinal hernia repair Left inguinal hernia repair with mesh ~[address] Lagos Family History Family History Mother Patient's mother is in good health Social History Social History Smoking packs per day: 1 Smoking cigarettes per day: 20.0 Years smoked: 15 Smoking pack-years: 15.00 Smoking status: Current every day smoker Tobacco type: cigarettes Substance use: never Substance use type: does not use Gender identity (if verbalized by the patient): Male Sexual Orientation (if Verbalized by the Patient): Straight or Heterosexual Spiritual care concerns: No Anes - Eval Final PreProcedure Day of Procedure 09/23/22 09:46 Patient weight: obese Heart: regular rate and rhythm Lungs: clear to auscultation Airway: Mallampati scale class III Neurological: alert and oriented Last oral intake: >/= 8 hours ASA classification: III Emergent: no Anesthetic plan: proceed Anesthesia type and monitoring: general ETT and standard monitoring Results Review: All pre-operative results and documents have been reviewed as part of the pre-operative evaluation. Informed Consent: The patient's anesthetic plan and its attendant risks and benefits were discussed with the patient/family/POA. Questions were solicited and answers provided to the satisfaction of the patient/family/POA.
[2022-09-23] MEDS: ceFAZolin 2 GM/D5W 50 ML 2 GM/50 ML BAG IVPB (09:51)
[2022-09-23] MEDS: BUPIVACAINE/EPINEPHRINE 0.5% 50 ML VIAL 30 ML INFILTRATE (10:33)
--- NOTE | 2022-09-23 12:13 | W.PM.PROC2 ---
Procedure Note - Detailed Date of Procedure 09/23/22 Pre-op Diagnosis right inguinal hernia Post-op Diagnosis Same Procedure Performed Robotic laparoscopic right inguinal hernia repair with 3DMax mesh Surgeon Leonardo Lagos MD Radiologic Therapist Suhas STEWART Anesthesia General and Local (0.5% Marcaine with epinephrine) Indications The patient is a 42-year-old man who several years ago had a left inguinal hernia repair. He has noticed for a few months now pain in the right groin in an occasional bulge. It is worse with heavy activity or sneezing. He was seen in the office and found to have a reducible right inguinal hernia. He is taken to surgery now for robotic laparoscopic repair Findings Patient had a fat containing indirect right inguinal hernia. There was no direct hernia noted. Description of Procedure Patient was taken to surgery and induced into general anesthesia. The abdomen is prepped and draped. The initial trocar was the supraumbilical 5 mm port just to the right of midline. This was a 5 mm applied Medical optical trocar was placed under direct visualization. We then insufflated and placed 2 robotic 8 mm ports. We switched the camera position and exchanged the 5 mm port for an 8 mm robotic port. The robot was brought into the field and positioned. The camera was docked and targeted. We then placed the other 2 robotic arms and docked them. The instruments were placed as well and position near the hernia. The surgeon then went to the robotic console. A peritoneal flap was started laterally at about the level of the anterior superior iliac spine. A flap was developed and proceeded from lateral to medial ending at the median umbilical ligament. We then dissected off the peritoneal flap trying to leave as much of the fatty tissue laterally but dissecting in area older tissue whenever possible. Medially we dissected down on the right rectus and identified the left rectus. The pubis and Ketan's ligament were identified. We dissected just a bit posterior to the pubis and Ketan's ligament. Cautery was used for hemostasis. Dissection was carried out laterally below the pectinate line. We then reduced the hernia and dissected the hernia sac by retracting it medially and dissecting the cord structures off the hernia sac. When this was completed, we then continued dissection of the peritoneal flap so that the edges of the peritoneum were well below the cord structures. At least 4 cm posterior to the defect the peritoneum was dissected throughout. A 17 x 12 mid right 3DMax mesh was chosen. It was introduced into the field. It was positioned appropriately to cover the hernia defect and the pubic structures. A 3-0 Vicryl suture was used to suture the mesh to Ketan's ligament medially. A 3-0 Vicryl suture was also placed laterally to suture the anterior aspect of the mesh to the anterior abdominal wall. The mesh appeared to be in very good position. The peritoneal flap was then closed with running 2 0 V lock starting laterally and proceeding medially to the median umbilical ligament. There was a small hole in the peritoneum posteriorly. This was closed with a [id number] 3-0 Vicryl suture. We then removed all the needles and suture material. We on docked the robot and removed the instruments. The trocars were removed. Skin wounds were closed with subcuticular 4-0 Monocryl skin suture. The wounds were dressed with Exofin surgical adhesive. The patient was awakened and taken to recovery in good condition. Sponge and needle counts were correct x2. Implants 17 x 12 cm right mid 3DMax mesh Estimated Blood Loss -5 Drains No Packing No Pathology None sent Complications No immediate complications Condition Stable Disposition PACU [facility] Billing Surgery - Charge Forward: Surgery Billing (Robotic laparoscopic repair right inguinal hernia)
== END 2022-09-23 14:02 | disposition home or self-care (01) ==
PROVIDERS: PCP Nurse Practitioner; Visit Provider Surgery
PROC: 8E0Y4CZ Robotic Assisted Procedure of Lower Extremity, Percutaneous Endoscopic Approach (ICD-10-PCS; CPT 49650; principal; 2022-09-23 10:30)
DX: K40.90 Unilateral inguinal hernia, without obstruction or gangrene, not specified as recurrent (principal); F20.9 Schizophrenia, unspecified; E66.9 Obesity, unspecified; Z68.32 Body mass index [BMI] 32.0-32.9, adult
CPT/HCPCS: 49650; S2900; 36415; 86850; 86900; 86901; A9270; C1781; J0690; J1100; J1170; J1885; J2250; J2405; J2704; J2710; J3010; J7120

== ENCOUNTER 2022-11-02 00:28 | Emergency (ER) | payer MEDICARE, MEDICAID, SELFPAY ==
[2022-11-02 00:46] VITALS: BP 142/101; PULSE 105; RESP 18; TEMP 36.6; O2SAT 99
--- NOTE | 2022-11-02 00:52 | ED.GENADULT ---
HPI - General Adult General Chief complaint: Psychiatric Symptoms Stated complaint: SI/HI Time Seen by Provider: 11/02/22 00:34 History of Present Illness HPI narrative: Patient 42-year-old gentleman who presents the emergency department with chief complaint of having bad thoughts patient states that he has been drinking he is also used a little meth and cocaine over the last few days the patient states that he has been having intermittent thoughts of hurting himself but at this moment is not suicidal the patient states that he feels like he needs psychiatric help and may need to go to rehab again Related Data Home Medications Medication Instructions Recorded Confirmed divalproex 500 mg tablet,delayed 500 mg PO BID 04/04/19 10/08/22 release haloperidol 5 mg tablet 5 mg PO BID 04/04/19 10/08/22 paliperidone palm (3 month) 546 546 mg IM [id number] 11/27/19 10/08/22 mg/1.75 mL intramuscular syringe (Invega [place] Warsza) benztropine 0.5 mg tablet 0.5 mg PO BID 04/22/20 10/08/22 trazodone 50 mg tablet 50 mg PO DAILY 12/01/20 10/08/22 hydroxyzine HCl 25 mg tablet 25 mg PO BID PRN ANXIETY 05/14/22 10/08/22 Allergies Allergy/AdvReac Type Severity Reaction Status Date / Time Penicillins AdvReac Unknown Nausea and Verified 10/08/22 10:07 Vomiting Review of Systems Review of Systems: A 10 system review of systems was completed on the patient and is negative except for what is stated in the HPI. Nursing and ancillary documentation was reviewed. [facility] Past Medical History Medical History Schizophrenia Surgical History Surgical History History of inguinal hernia repair 09/23/22 Robotic laparoscopic right inguinal hernia repair with 3DMax mesh Left inguinal hernia repair with mesh ~[address] Lagos Family History Family History Mother Patient's mother is in good health Social History Social History Smoking packs per day: 1 Smoking cigarettes per day: 20.0 Years smoked: 15 Smoking pack-years: 15.00 Smoking status: Current every day smoker Tobacco type: cigarettes Substance use: never Substance use type: crack/cocaine and methamphetamine Gender identity (if verbalized by the patient): Male Sexual Orientation (if Verbalized by the Patient): Straight or Heterosexual Spiritual care concerns: No Exam Narrative: GENERAL: Well-appearing, well-nourished, and in no acute distress. HEAD: Normocephalic, atraumatic. EYES: PERRLA and EOMI. ENT: Nares clear, no rhinorrhea or epistaxis. Mucous membranes moist. NECK: Supple. CHEST: Clear to auscultation. No respiratory distress. HEART: Regular rate and rhythm. No murmur heard. Normal peripheral pulses. ABDOMEN: Soft, nontender, nondistended, normal active bowel sounds. EXTREMITIES: Normal range of motion. No edema. SKIN: Warm, dry, no rash. NEURO: No focal deficits. Alert and oriented x3. PSYCH: Normal mood and affect. Course Vital Signs Vital signs: Vital Signs Temperature 36.6 C 11/02/22 00:46 Pulse Rate 105 H 11/02/22 00:46 Respiratory Rate 18 11/02/22 00:46 Blood Pressure 142/101 H 11/02/22 00:46 Pulse Oximetry 99 11/02/22 00:46 Oxygen Delivery Room Air 11/02/22 00:46 Temperature 36.6 C 11/02/22 00:46 Pulse Rate 105 H 11/02/22 00:46 Respiratory Rate 18 11/02/22 00:46 Blood Pressure 142/101 H 11/02/22 00:46 Pulse Oximetry 99 11/02/22 00:46 Oxygen Delivery Room Air 11/02/22 00:46 Medical Decision Making MDM Narrative Medical decision making narrative: Differential diagnosis includes acute intoxication, suicidal ideation, schizophrenia exacerbation Laboratory studies were obtained on the patient which showed a white count
[2022-11-02 01:25] LABS: Basophils Percent Auto 0.4 % (0.2-1.2); Eosinophils Absolute Auto 0.1 K/mm3 (0-0.3); Eosinophils Percent Auto 1.2 % (0-4.4); Hematocrit 38.1 % (42.0-52.0); Hemoglobin 12.5 g/dL (14.0-18.0); Immature Granulocyte Absolute 0.02 K/mm3 (0.00-0.031); Immature Granulocyte Percent A 0.3 % (0-0.5); Lymphocytes Absolute Auto 2.05 K/mm3 (0.9-3.2); Lymphocytes Percent Auto 27.3 % (18.3-44.2); Mean Corpuscular HGB Conc 32.8 g/dl (32-36); Mean Corpuscular Hemoglobin 29.3 pg (26-34); Mean Corpuscular Volume 89.2 fl (80-100); Mean Platelet Volume 9.8 fl (7.4-10.4); Monocytes Absolute Auto 0.7 K/mm3 (0.1-0.6); Monocytes Percent Auto 9.9 % (2.6-8.5); Neutrophils Absolute Auto 4.6 K/mm3 (1.3-6.7); Neutrophils Percent Auto 60.9 % (45.5-73.1); Platelet Count Result 281 k/mm3 (150-375); Red Blood Count 4.27 M/mm3 (4.6-6.20); Red Cell Distribution Width 15.7 % (11.5-14.5); White Blood Count 7.5 K/mm3 (4.5-10.0)
[2022-11-02 01:27] LABS: Appearance Urine Clear (Clear); Bilirubin Urine Negative (Negative); Blood Urine Negative (Negative); Color Urine Yellow (Yellow); Glucose Urine UA Negative (Negative); Ketones Urine Negative (Negative); Leukocyte Esterase Ur Negative LEU/UL (Negative); Nitrate Urine Negative (Negative); Protein Urine Negative (Negative); Specific Grav Ur 1.004 (1.001-1.035)
--- NOTE | 2022-11-02 01:29 | PC.NURSE ---
Pt is moderate risk on [place] Suicide Scale. Per EDP Corrina, sitter is needed at this time.
[2022-11-02 01:34] LABS: Acetaminophen < 10 ug/mL (10-30); Ethanol 54 mg/dL (<10); Salicylate < 1.0 mg/dL (2-20)
[2022-11-02 01:41] LABS: Amphetamine Screen Urine Negative (Negative); Barbiturate Screen Urine Negative (Negative); Benzodiazepines Screen Urine Negative (Negative); Cannabinoid Screen Urine Positive (Negative); Cocaine Screen Urine Positive (Negative); Methadone Screen Urine Negative (Negative); Opiate Screen Urine Negative (Negative); Phencyclidine Screen Urine Negative (Negative)
[2022-11-02 01:48] LABS: Add Urine Microscopic? NO
--- NOTE | 2022-11-02 01:50 | PC.NURSE ---
Per LIZETH Houser, pt is medically cleared at this time.
[2022-11-02 02:02] LABS: Influenza A QL RT-PCR Negative (Negative); Influenza B QL RT-PCR Negative (Negative); SARS-CoV-2 RNA PCR Negative (Negative)
[2022-11-02 02:09] LABS: Alanine Aminotransferase 17 U/L (6-50); Albumin Level 3.8 g/dL (3.5-5.1); Alkaline Phosphatase 75 U/L (38-126); Anion Gap 3 mmol/L (8-16); Aspartate Amino Transferase 26 U/L (17-59); Bilirubin,Total 0.3 mg/dL (0.2-1.3); Blood Urea Nitrogen 6 mg/dL (9-20); Calcium 8.9 mg/dL (8.4-10.2); Carbon Dioxide 27 mmol/L (22-30); Chloride 106 mmol/L (98-107); Estimated CRCL calculation 130 ml/min; Estimated Glomerular Filt Rate > 60; Glucose 78 mg/dL (65-110); Potassium 3.8 mmol/L (3.4-5.0); Sodium 136 mmol/L (137-145)
== END 2022-11-02 03:35 | disposition home or self-care (01) ==
PROVIDERS: Emergency Provider Emergency Medicine; PCP Nurse Practitioner
DX: F14.10 Cocaine abuse, uncomplicated (principal); F10.10 Alcohol abuse, uncomplicated; F20.9 Schizophrenia, unspecified; F17.210 Nicotine dependence, cigarettes, uncomplicated; Y90.9 Presence of alcohol in blood, level not specified; Z20.822 Contact with and (suspected) exposure to COVID-19; Z79.899 Other long term (current) drug therapy
CPT/HCPCS: 36415; 80053; 80307; 81003; 84443; 85025; 87636; 99284

== ENCOUNTER 2023-01-12 14:23 | Outpatient (CLI) | payer MEDICARE, MEDICAID, SELFPAY ==
--- NOTE | ~2023-01-12 | CT_ITS ---
CT scan of the Neck Technique: 2.5 mm axial scans were obtained through the neck after intravenous administration of 75 c c Omnipaque 350. Coronal and sagittal reconstructions of the neck were obtained. Dose reduction techn ique was used on this scan by utilizing automated exposure control and iterative reconstruction techn ique. The dose-length product (DLP) was 571.23 mGy-cm. Clinical History: Left-sided neck pain Findings: There is no evidence of any significant cervical lymphadenopathy. Several small, nonenlarged jugulo- digastric and posterior cervical lymph nodes are noted bilaterally. Parapharyngeal spaces appear norm al bilaterally. The parotid and submandibular glands appear normal. The pharyngeal mucosal spaces appear normal. No soft tissue masses are seen in the neck. The thyroid gland appears normal. Visualized paranasal sinuses and mastoid air cells are clear. Image s of the lung apices reveal partially imaged small bilateral pleural effusions. Impression: No significant abnormality seen in the neck itself. Partially imaged small bilateral pleural effusions. Reviewed, dictated and finalized at location . Impression: No significant abnormality seen in the neck itself. Partially imaged small bilateral pleural effusions.
== END 2023-01-12 14:24 | disposition home or self-care (01) ==
PROVIDERS: PCP Nurse Practitioner; Visit Provider Otolaryngology
DX: J34.89 Other specified disorders of nose and nasal sinuses (principal); J38.7 Other diseases of larynx; K21.9 Gastro-esophageal reflux disease without esophagitis
CPT/HCPCS: 70491; Q9967

== ENCOUNTER 2023-03-08 18:33 | Emergency (ER) | payer MEDICARE, MEDICAID, SELFPAY ==
--- NOTE | ~2023-03-08 | CT_ITS ---
EXAMINATION: CT abdomen pelvis w con DATE: 03/08/2023 20:27 INDICATION: Left groin/inguinal pain TECHNIQUE: Computed tomography (CT) of the abdomen and pelvis was performed with 100 mL Omnipaque-350 intravenous contrast. Automated exposure control and iterative reconstruction technique were employe d. The dose-length product was 540.97 mGy-cm. COMPARISON: 09/09/2020 FINDINGS: Lung bases are clear. Heart size is normal. No pericardial or pleural effusion. Focal hepatic steatos is at the ligamentum teres. Gallbladder, spleen, pancreas and bilateral adrenal glands are normal. A few small bilateral renal cysts, the largest on the right measuring 1.2 cm. Bowels including appendix are normal. Postoperative changes of interval right inguinal hernia repair. Bladder is normal. No fr ee intraperitoneal gas or fluid. No pathologically enlarged abdominal or pelvic lymphadenopathy. Mild scattered degenerative skeletal changes in the visualized spine and bilateral hip and sacroiliac sheryl nts. IMPRESSION: 1. No acute intra-abdominal/pelvic process Reviewed, dictated and finalized at location [facility]. [facility]
[2023-03-08 18:43] VITALS: BP 156/81; PULSE 115; RESP 17; TEMP 37; O2SAT 100
[2023-03-08 19:06] LABS: Appearance Urine Clear (Clear); Bilirubin Urine Negative (Negative); Blood Urine Negative (Negative); Color Urine Yellow (Yellow); Glucose Urine UA Negative (Negative); Ketones Urine Negative (Negative); Leukocyte Esterase Ur Negative LEU/UL (Negative); Nitrate Urine Negative (Negative); Protein Urine Negative (Negative); Specific Grav Ur 1.007 (1.001-1.035); Urobilinogen Urine 0.2 mg/dL (<2.0); pH Urine 6.5 (5.0-9.0)
[2023-03-08 19:25] LABS: Add Urine Microscopic? NO
--- NOTE | 2023-03-08 19:41 | ED.GENADULT ---
HPI - General Adult General Chief complaint: Urogenital-Male Stated complaint: left groin pain Time Seen by Provider: 03/08/23 19:25 History of Present Illness HPI narrative: 42-year-old male present emergency department for evaluation of left inguinal pain. Patient reports approximate 4 months ago he had repair of a right inguinal hernia but states that his left inguinal hernia that was repaired approximately 10 years ago has been bothering him more frequently. Occasionally he is currently at [facility] for rehabilitation. Related Data Home Medications Medication Instructions Recorded Confirmed divalproex 500 mg tablet,delayed 500 mg PO BID 04/04/19 02/02/23 release haloperidol 5 mg tablet 5 mg PO BID 04/04/19 02/02/23 paliperidone palm (3 month) 546 546 mg IM [id number] 11/27/19 02/02/23 mg/1.75 mL intramuscular syringe (Invega Allieza) benztropine 0.5 mg tablet 0.5 mg PO BID 04/22/20 02/02/23 hydroxyzine HCl 25 mg tablet 25 mg PO BID PRN ANXIETY 05/14/22 02/02/23 Allergies Allergy/AdvReac Type Severity Reaction Status Date / Time Penicillins AdvReac Unknown Nausea and Verified 03/08/23 19:28 Vomiting Review of Systems Review of Systems: All systems reviewed & are unremarkable except as noted in HPI and below PMFSH Past Medical History Medical History Schizophrenia Surgical History Surgical History History of inguinal hernia repair 09/23/22 Robotic laparoscopic right inguinal hernia repair with 3DMax mesh Left inguinal hernia repair with mesh ~[address] Lagos Family History Family History Mother Patient's mother is in good health Social History Social History Smoking packs per day: 1 Smoking cigarettes per day: 20.0 Years smoked: 15 Smoking pack-years: 15.00 Smoking status: Current every day smoker Tobacco type: cigarettes Substance use: never Substance use type: crack/cocaine and methamphetamine Gender identity (if verbalized by the patient): Male Sexual Orientation (if Verbalized by the Patient): Straight or Heterosexual Spiritual care concerns: No Exam Narrative: APPEARANCE: Well appearing, no pain, no distress, well-nourished. HEAD: normocephalic, atraumatic. EYES: PERRLA/EOMI, conjunctivae clear. NOSE: Normal no drainage NECK: Supple. No adenopathy, no masses. RESPIRATORY: Airway patent, respirations nonlabored. Clear to auscultation bilaterally, no rales, rhonchi, wheezing. CARDIOVASCULAR: Regular rate and rhythm without murmurs rubs or gallops. ABDOMINAL: Left inguinal tenderness to palpation with no deformity no mass no ecchymosis no crepitus and no tenderness to or swelling to left testicle. MUSCULOSKELETAL: Moves all extremities. Strength/ROM intact, No edema, No calf tenderness. NEURO: Alert. Cranial nerves II through XII intact. Grossly intact SKIN: Warm, dry. Normal Color Course Course Emergency Course: 42-year-old male present emergency department for evaluation of left-sided groin pain. No testicular swelling or tenderness to palpation. Tenderness over the left groin. CT scan showed no evidence of hernia no intrapelvic abnormality. UA was negative. Patient is afebrile with no leukocytosis and a stable hemoglobin with no significant changes in his CMP negative lactic acid. Patient was updated results of his work-up was comfortable to plan for discharge and close follow-up. Vital Signs Vital signs: Vital Signs Temperature 98.6 F 03/08/23 18:43 Pulse Rate 115 H 03/08/23 18:43 Respiratory Rate 17 03/08/23 18:43 Blood Pressure 156/81 H 03/08/23 18:43 Pulse Oximetry 100 03/08/23 18:43 Oxygen Delivery Room Air 03/08/23 18:43 Temperature 98.6 F 03/08/23 18:43 Pulse Rate 115 H 03/08/23 18:4
[2023-03-08] MEDS: KETOROLAC 15 MG/ML VIAL (*BKC) IV PUSH (20:01)
[2023-03-08 20:06] LABS: Basophils Percent Auto 0.5 % (0.2-1.2); Eosinophils Percent Auto 0.4 % (0-4.4); Hematocrit 43.4 % (42.0-52.0); Hemoglobin 14.5 g/dL (14.0-18.0); Immature Granulocyte Absolute 0.02 K/mm3 (0.00-0.031); Immature Granulocyte Percent A 0.2 % (0-0.5); Lymphocytes Absolute Auto 2.75 K/mm3 (0.9-3.2); Lymphocytes Percent Auto 33.6 % (18.3-44.2); Mean Corpuscular HGB Conc 33.4 g/dl (32-36); Mean Corpuscular Volume 86.8 fl (80-100); Mean Platelet Volume 9.7 fl (7.4-10.4); Monocytes Percent Auto 12.2 % (2.6-8.5); Neutrophils Absolute Auto 4.4 K/mm3 (1.3-6.7); Neutrophils Percent Auto 53.1 % (45.5-73.1); Platelet Count Result 370 k/mm3 (150-375); Red Cell Distribution Width 15.5 % (11.5-14.5); White Blood Count 8.2 K/mm3 (4.5-10.0)
[2023-03-08 20:18] LABS: Estimated CRCL calculation 92 ml/min; Estimated Glomerular Filt Rate > 60
[2023-03-08 20:18] LABS: Partial Thromboplastin Time 29.5 SECONDS (22.3-36.8); Prothrombin Time 13.4 Seconds (11.1-14.7)
[2023-03-08 20:20] LABS: Alanine Aminotransferase 22 U/L (6-50); Albumin Level 4.2 g/dL (3.5-5.1); Alkaline Phosphatase 77 U/L (38-126); Anion Gap 9 mmol/L (8-16); Aspartate Amino Transferase 29 U/L (17-59); Bilirubin,Total 0.5 mg/dL (0.2-1.3); Blood Urea Nitrogen 13 mg/dL (9-20); Calcium 9.2 mg/dL (8.4-10.2); Carbon Dioxide 27 mmol/L (22-30); Chloride 103 mmol/L (98-107); Estimated CRCL calculation 92 ml/min; Estimated Glomerular Filt Rate > 60; Glucose 68 mg/dL (65-110); Lactic Acid Reflex 1.7 mmol/L (0.7-2.0); Potassium 3.7 mmol/L (3.4-5.0); Sodium 139 mmol/L (137-145)
== END 2023-03-08 21:00 ==
PROVIDERS: Emergency Medicine; Emergency Provider Emergency Medicine; PCP Nurse Practitioner
DX: R10.32 Left lower quadrant pain (principal); F20.9 Schizophrenia, unspecified; F17.210 Nicotine dependence, cigarettes, uncomplicated
CPT/HCPCS: 36415; 74177; 80053; 81003; 83605; 85025; 85610; 85730; 96374; 99284; J1885; Q9967

== ENCOUNTER 2023-08-10 09:02 | Emergency (ER) | payer MEDICARE, MEDICAID, SELFPAY ==
--- NOTE | 2023-08-10 09:21 | ED.GENADULT ---
HPI - General Adult General Chief complaint: Unspecified Stated complaint: some type of bite Time Seen by Provider: 08/10/23 09:05 History of Present Illness HPI narrative: 42-year-old male presented to the emergency department for evaluation for a suspected bite on his right buttock. Patient notices symptoms approximately 2 days ago. Patient denies any prior history MRSA. Patient states that the bite/abscess has been spontaneously draining. Related Data Home Medications Medication Instructions Recorded Confirmed divalproex 500 mg tablet,delayed 500 mg PO BID 04/04/19 02/02/23 release haloperidol 5 mg tablet 5 mg PO BID 04/04/19 02/02/23 paliperidone palm (3 month) 546 546 mg IM [id number] 11/27/19 02/02/23 mg/1.75 mL intramuscular syringe (Invega Allieza) benztropine 0.5 mg tablet 0.5 mg PO BID 04/22/20 02/02/23 hydroxyzine HCl 25 mg tablet 25 mg PO BID PRN ANXIETY 05/14/22 02/02/23 Allergies Allergy/AdvReac Type Severity Reaction Status Date / Time Penicillins AdvReac Unknown Nausea and Verified 03/08/23 19:28 Vomiting Review of Systems Review of Systems: All systems reviewed & are unremarkable except as noted in HPI and below PMFSH Past Medical History Medical History Schizophrenia Surgical History Surgical History History of inguinal hernia repair 09/23/22 Robotic laparoscopic right inguinal hernia repair with 3DMax mesh Left inguinal hernia repair with mesh ~[address] [place] Family History Family History Mother Patient's mother is in good health Social History Social History Smoking packs per day: 1 Smoking cigarettes per day: 20.0 Years smoked: 15 Smoking pack-years: 15.00 Smoking status: Current every day smoker Tobacco type: cigarettes Substance use: never Substance use type: crack/cocaine and methamphetamine Gender identity (if verbalized by the patient): Male Sexual Orientation (if Verbalized by the Patient): Straight or Heterosexual Spiritual care concerns: No Exam Narrative: APPEARANCE: Well appearing, no pain, no distress, well-nourished. HEAD: normocephalic, atraumatic. EYES: PERRLA/EOMI, conjunctivae clear. NOSE: Normal no drainage RESPIRATORY: Airway patent, respirations nonlabored. Clear to auscultation bilaterally, no rales, rhonchi, wheezing. CARDIOVASCULAR: Regular rate and rhythm without murmurs rubs or gallops. ABDOMINAL: Soft, nontender, nondistended, normal bowel sounds MUSCULOSKELETAL: Moves all extremities. Strength/ROM intact, No edema, No calf tenderness. NEURO: Alert. Cranial nerves II through XII intact. Good gait. Good coordination SKIN: Area of induration on the right buttock, ultrasound showed no abscess amenable to drainage. Course Course Emergency Course: Patient was started on antibiotics for suspected abscess and discharged to Medical Decision Making MDM Narrative Medical decision making narrative: 42-year-old male presenting to the emergency department for evaluation for a suspected bite on his right buttock. Patient does have an early abscess that is reportedly spontaneously draining. Bedside ultrasound showed no abscess amenable to drainage. Patient was started on antibiotics in the emergency department. Patient was encouraged to have close follow-up with his primary care physician for additional wound check. All questions and concerns were addressed. Differential Diagnosis Differential Diagnosis: Abscess, perirectal abscess, MRSA spider bite, cellulitis Discharge Plan Discharge Clinical Impression: Abscess Patient Disposition: Home, Self-Care Condition: Stable Instructions: Antibiotic Form, Abscess (ED) Additional Instructions: Antibiotic as directed until complete
[2023-08-10] MEDS: CLINDAMYCIN HCL 150 MG CAP PO (09:46)
== END 2023-08-10 09:47 | disposition home or self-care (01) ==
PROVIDERS: Emergency Provider Emergency Medicine; PCP Nurse Practitioner
DX: L02.31 Cutaneous abscess of buttock (principal); F20.9 Schizophrenia, unspecified; F17.210 Nicotine dependence, cigarettes, uncomplicated
CPT/HCPCS: 99283; A9270

== ENCOUNTER 2024-11-28 01:34 | Emergency (ER) | payer MEDICARE, SELFPAY ==
--- OUTSIDE RECORDS SUMMARY | 2024-11-28 01:37 | XMS_ITS | Clinical Summary ---
Author Organization [facility] [address] Address [address] [place] [address] Care Team Providers Care Bellstand Attendant Name Role Phone Patrice Mcbride MD Primary Care Provide r Allergies Active Allergy Reactions Criticality Noted Date Comments Penicillins Medications buPROPion SR (WELLBUTRIN SR) 150 mg 12 hr tablet Take 150 mg by mouth daily 07/17/2021 Active busPIRone (BUSPAR) 15 mg tablet Take 15 mg by mouth 3 (three) times a day 07/17/2021 Active carBAMazepine XR (TEGretol XR) 200 mg 12 hr tablet Take 200 mg by mouth 2 (two) times a day 07/21/2021 Active chlorproMAZINE (THORAZINE) 50 mg tablet Take 50 mg by mouth nightly 07/10/2021 Active Active Problems Problem Noted Date Diagnosed Date Stimulant use disorder 08/01/2021 Social History Tobacco Use Types Packs/Day Years Used Date Smoking Tobacco: Never Assessed Personal Safety Answer Date Recorded Have you ever been in or are you currently in a harmful physical or emotional relationship or is someone making you feel afraid or unsafe? 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 Gender Identity Not on file Sexual Orientation Not on file Obstetrics History Last Filed Vital Signs Vital Sign Reading Time Taken Comments Blood Pressure 135/91 12/22/2023 5:39 PM CDT Pulse 110 12/22/2023 5:39 PM CDT Temperature 36.4 C (97.5 F) 12/22/2023 6:55 PM CDT Respiratory Rate 18 12/22/2023 5:39 PM CDT Oxygen Saturation 100% 12/22/2023 5:39 PM CDT Inhaled Oxygen Concentration - - Weight 90.7 kg (200 lb) 12/22/2023 5:39 PM CDT Height 165.1 cm (5' 5) 12/22/2023 5:39 PM CDT Body Mass Index 33.28 12/22/2023 5:39 PM CDT Plan of Treatment Health Maintenance Due Date Last Done Comments Depression Screening 1981 Hepatitis C Screening 1981 Prostate Cancer Screening-PSA 1981 Varicella Vaccines (1 of 2 - 13+ 2-dose series) 1994 Regular Well Visit/Exam 18-64 09/22/1999 HPV Vaccines (1 - 3-dose SCDM series) 2008 Covid-19 Vaccine ( - season) 2023 09/14/2020, 08/17/2020 Influenza Vaccine (#1) 2024 02/14/2021, 2019 DTaP/Tdap/Td Vaccine (7 - Td or Tdap) 11/03/2027 11/02/2017, 04/27/1996, 05/09/1986, Additional history exists Hepatitis B Screening Completed 03/12/2009, 997 Pneumococcal vaccine <65 Aged Out No longer eligible based on patient's age to complete this topic Insurance [employer] MEDICARE MEDICARE ADVANTAGE Care Teams Bellstand Attendant Relationship Specialty Start Date End Date Patrice Mcbride MD [address] [place] [address] (work) PCP - General Emergency Medicine 05/25/17
--- OUTSIDE RECORDS SUMMARY | 2024-11-28 01:37 | XMS_ITS | Patient Health Record ---
Author Organization [facility] Address [address] [address] Care Team Providers Care Asset Protection Manager Name Role Phone Thomas Billings Unavailable [phone] Reason For Referral No Information Plan Of Treatment No Information
--- OUTSIDE RECORDS SUMMARY | 2024-11-28 01:37 | XMS_ITS | Clinical Summary ---
Author Organization [facility] Address [address] [place] [address] Phone Care Team Providers Care Critical Care Nurse Specialist Name Role Phone Provider, None Primary Care Provider Kong Orlando MD Unavailable Allergies Active Allergy Reactions Criticality Noted Date Comments Penicillins Unknown 08/05/2021 Medications INVEGA TRINZA 546 MG/1.75ML Suspension Prefilled Syringe INJECT 546 MG IN THE MUSCLE Q 3 MONTHS 0 Active benztropine (COGENTIN) 0.5 MG Tablet Take 1 Tab by mouth daily. 30 Tab 0 Active Additional Information Patient not taking.Reported on 07/26/2024 ARIPiprazole (ABILIFY) 10 MG Tablet Take 1 Tab by mouth daily. 30 Tab 0 Active Additional Information Patient not taking.Reported on 07/26/2024 divalproex (DEPAKOTE ER) 500 MG TABLET SR 24 HR Take 2 Tabs by mouth nightly. 60 Tab 0 Active Additional Information Patient not taking.Reported on 07/26/2024 QUEtiapine Fumarate (SEROQUEL PO) Take by mouth daily. Active Austedo XR 24 MG TABLET SR 24 HR 5 Active haloperidol (HALDOL) 2 MG Tablet 5 Active prazosin (MINIPRESS) 2 MG Capsule 5 Active traZODone (DESYREL) 150 MG Tablet 5 Active topiramate (TOPAMAX) 25 MG Tablet 5 Active Social History Tobacco Use Types Packs/Day Years Used Date Smoking Tobacco: Every Day Cigarettes Smokeless Tobacco: Never Tobacco Cessation:Ready to Q uit: Not Asked; Counseling Given: Not Answered Alcohol Use Standard Drinks/Week Comments Yes 0 (1 standard drink = 0.6 oz pur e alcohol) socially Sex and Gender Information Value Date Recorded Sex Assigned at Not on file Legal Sex Male 9:08 PM CDT Gender Identity Not on file Sexual Orientation Not on file Last Filed Vital Signs Vital Sign Reading Time Taken Comments Blood Pressure 140/87 07/26/2024 10:37 AM CDT Pulse 76 07/26/2024 10:37 AM CDT Temperature 36.4 C (97.6 F) 09/17/2021 4:43 AM CDT Respiratory Rate 19 09/17/2021 9:15 AM CDT Oxygen Saturation 97% 07/26/2024 10:37 AM CDT Inhaled Oxygen Concentration - - Weight 112 kg (247 lb) 07/26/2024 10:37 AM CDT Height 170.2 cm (5' 7) 07/26/2024 10:37 AM CDT Body Mass Index 38.69 07/26/2024 10:37 AM CDT Plan of Treatment Health Maintenance Due Date Last Done Comments Hepatitis C Virus (HCV) Screening 1981 Pneumococcal Immunization Combined (1 of 2 - PCV) 2000 Human Papillomavirus (HPV) Immunization (1 - 3-dose SCDM series) 2008 Hepatitis B Immunization (3 of 3 - 3-dose series) 05/07/2009 03/12/2009, 04/27/1996 SARS-COV-2 Immunization ( season) 2023 02/16/2023, 02/25/2022, 09/14/2020, Additional history exists Influenza Immunization (#1) 2024 02/14/2021, 1 Respiratory Syncytial Virus (RSV) Immunization (Adult) (1 - 1-dose 75+ series) 2056 DTaP/Tdap/Td Immunization Discontinued 2017, 04/27/1996, 05/09/1986, Additional history exists TdaP Immunization Completed 11/02/2017 Meningococcal Immunization (ACWY) Aged Out No longer eligible based on patient's age to complete this topic Rotavirus Immunization Aged Out No lo nger eligible based on patient's age to complete this topic Insurance [facility] Care Teams Critical Care Nurse Specialist Relationship Specialty Start Date End Date Provider, None [place] PCP - General 10/25/19 Kong Rodriguez MD [address] [facility] [address] [place] [address] Consulting Physician Urology 05/12/24
--- OUTSIDE RECORDS SUMMARY | 2024-11-28 01:37 | XMS_ITS | Continuity of Care Document ---
Author Organization [facility] Address [address] [place] [phone] Phone Care Team Providers Care Propulsion Motor And Generator Repairer Name Role Phone Corey RUBY, FACC, Marla Unavailable Unavailab le Procedures Procedure Date ELECTROCARDIOGRAM REPORT Advance Directives Directive Yes / No Effective Date File Name No Information Encounters Encounter Description Practice Location Reason(s) For Visit Diagnoses Date Provider Providers Copied on Encounter [facility], [address] [place] [address], [id number], tel:[phone] [facility] No Information Corey Gutiérrez. [address] [place] [address], [id number], . tel:[phone] Referring Provider: Marla Nicole, [address] [place] [address], [id number]. tel:[phone] Family History Family Member Type Diagnosis Age At Onset No Information Payers Payer name Insurance type Covered democrat ID Authoriza tion(s) No Information Social History [...]
--- OUTSIDE RECORDS SUMMARY | 2024-11-28 01:37 | XMS_ITS | Referral Summary ---
Author Organization [facility] [address] Address [address] [place] [address] Care Team Providers Care Gut Puller Name Role Phone Patrice Mcbride MD Primary [...] on file Legal Sex Male 12:49 PM SUPERVISOR MAPPING Gender Identity Not on file Sexual Orientation [...] 12/22/2023 5:39 PM CDT Plan of Treatment Not on file Insurance [facility] MEDICARE [facility] MEDICARE AD[facility]ANT[facility] Address: [facility] [address] [place] [address] [facility]HC MEDICARE ADVANTAGE [facility] Address: [facility] [address] [place] [address] Care Teams Gut Puller Relationship Specialty Start Date End Date Patrice Mcbride MD [address] [place] [address] PCP - General Emergency Medicine 05/25/17
--- OUTSIDE RECORDS SUMMARY | 2024-11-28 01:37 | XMS_ITS | Continuity of Care Document ---
Author Organization [facility] Address [address] [facility] [place] [address] Phone Care Team Providers Care System Admin Name Role Phone Dano Kidd MD Unavailable Unavailable Advance Directives Directive Yes / No Effective Date File Name No Information Encounters Encounter Description Practice Location Reason(s) For Visit Diagnoses Date Provider Providers Copied on Encounter [facility], [address] [facility] [place], [id number], [place] tel:[phone] [facility] No Information Bernabe Matson. [address] [employer] [facility] [place], [id number], [place]. tel:[phone] Family History Family Member Type Diagnosis Age At Onset No Information Payers Payer name Insurance type Covered libertarian ID Authoriza tion(s) No Information Social History [...]
--- OUTSIDE RECORDS SUMMARY | 2024-11-28 01:37 | XMS_ITS | Patient Health Record ---
Author Organization [facility] hospital Address [address] [place] [address] Care Team Providers Care Water Main Pipe Layer Name Role Phone Jos Ness Primary Care Provider Rosalinda Harrison Unavailable [phone] Brionna Box Unavailable [phone] Marco Antonio Mercado Unavailable [phone] Vi Manuela Unavailable [phone] Arvin Gonzales Unavailable [phone] Jerry Eduardo Unavailable [phone] Brenna Sutherland Unavailable [phone] Allergies Allergen (clinical drug ingredient) Drug/Non Drug Allergy documented on EMR Reaction Allergy Type Onset Date Status Penicillin Childhood Drug Allergy Active Results Component Value Reference Range Notes HIV Screen *HIV 1, 2 Ab, p24 Ag ([id number]) Reviewed date:03/20/2024 02:47:33 PM Interpretation:Negative Performing Lab:[facility], Phone - [phone], Director - Martir Notes/Report: HIV Ab/p24 Ag Screen Non Reactive Non Reactive HIV-1/HIV-2 antibodies and HIV-1 p24 antigen were NOT detected. There is no laboratory evidence of HIV infection. HIV Negative Urine Culture, Routine* Reviewed date:03/20/2024 02:47:33 PM Interpretation:Normal Performing Lab:[facility], Phone - [phone], Director - Martir Notes/Report: Urine Culture, Routine Final report Result 1 No growth RPR w/reflex to TrepSure Reviewed date:03/20/2024 02:47:33 PM Interpretation:Negative Performing Lab:[facility], [address] [place] [address] [place], [place], Phone - [phone], Director - Martir Notes/Report: RPR Non Reactive Non Reactive Treponemal Antibodies, TPPA Non Reactive Non Reactive Interpretation: Syphilis: Treponemal Antibodies with Reflex to RPR and RPR Titer, Reverse Screening and Diagnosis Algorithm Treponemal Treponemal Ab RPR, Qn Ab, TPPA Final Interpretation -------- Non N/A N/A No laboratory evidence Reactive of syphilis. Retest in 2-4 weeks if recent exposure is suspected. -------- Reactive Non Non Treponemal antibodies Reactive Reactive not confirmed. Inconclusive for syphilis; potential early syphilis, possible false positive. Retest in 2-4 weeks if recent exposure is suspected. -------- Reactive Non Reactive Treponemal antibodies Reactive detected. Consistent with past or current (potential early) syphilis. -------- Reactive >/=1:1 N/A Treponemal and nontreponemal antibodies detected. Consistent with current or past syphilis. This test is intended ONLY for specimens that have tested positive (reactive) or equivocal for Treponema pallidum antibodies prior to submission for testing. For the full CDC-recommended syphilis screening and diagnosis algorithm, [facility] offers test code 241994 RPR, Rfx Qn RPR/Confirm TP or 985073 T pallidum Screening [facility]. Herpes Simplex Virus Types 1 and 2 -specific Antibodies, IgG Reviewed date:03/20/2024 02:47:33 PM Interpretation:Negative Performing Lab:[facility], Phone - [phone], Director - [facility] Notes/Report: HSV 1 IgG, Type Spec Non Reactive Non Reactive Please note reference interval change HSV-1 IgG testing performed using the G[employer] Ele[employer]ys HSV-1 IgG assay. HSV 2 IgG, Type Spec Non Reactive Non Reactive Please note reference interval change Current guidelines and recommendations do not recommend routine screening for HSV-2 in asymptomatic individuals, including those that are . The detection of HSV-2 IgG antibodies in a single sample indicates previous exposure to HSV-2 but does not give information as to the site of HSV infection or the timing of exposure. The predictive value of positive and negative results depends on the population's prevalence and the pretest likelihood of HSV-2. HSV-2 IgG testing performed using the G[employer] Elecsys HSV-2 IgG assay. Chlamydia/Gonococcus/Mycopla sma genitalium, ROSEMARY, Urine Reviewed date:03/20/2024 02:47:33 PM Interpretation:Negative [facility], Phone - [phone], Director - [facility] Notes/Report: Mycoplasma genitalium ROSEMARY Negative Negative Chlamydia trachomatis, ROSEMARY Negative Negative Neisseria gonorrhoeae, ROSEMARY Negative Negative Urinalysis In-House, Routine Reviewed date:03/15/2024 02:54:42 PM Interpretation: Performing Lab: Notes/Report: Urine-Color yellow Appearance clear Leukocytes neg Nitrite, Urine neg Urobilinogen,Semi-Qn 0.2 Protein neg pH 6.5 Occult Blood neg Specific [place] 1.010 Ketones neg Bilirubin neg Glucose neg QuantiFERON-TB Gold Plus (18 0093) Reviewed date:06/26/2024 08:29:46 AM Interpretation:Negative Performing Lab:[facility], [address] [facility], Phone - [phone], [facility] Notes/Report: QuantiFERON Incubation Incubation performed. QuantiFERON-TB Gold Plus Negative Negative No response to M tuberculosis antigens detected. Infection with M tuberculosis is unlikely, but high risk individuals should be considered for additional testing (ATS/IDSA/CDC Clinical Practice Guidelines, 2017). The reference range is an Antigen minus Nil result of <0.35 IU/mL. Chemiluminescence immunoassay methodology QuantiFERON Criteria QuantiFERON-TB Gold Plus is a qualitative indirect test for M tuberculosis infection (including disease) and is intended for use in conjunction with risk assessment, radiography, and other medical and diagnostic evaluations. The QuantiFERON-TB Gold Plus result is determined by subtracting the Nil value from either TB antigen (Ag) value. The Mitogen tube serves as a control for the test. QuantiFERON TB1 Ag Value 0.00 QuantiFERON TB2 Ag Value 0.00 QuantiFERON Nil Value 0.00 QuantiFERON Mitogen Value >10.00 QuantiFERON-TB Gold Plus (18 2879) Reviewed date:01/24/2024 11:12:27 AM Interpretation: Performing [facility] [address] [facility], Phone - [phone], [facility] Notes/Report: QuantiFERON Incubation Incubation performed. QuantiFERON-TB Gold Plus Negative Negative No response to M tuberculosis antigens detected. Infection with M tuberculosis is unlikely, but high risk individuals should be considered for additional testing (ATS/IDSA/CDC Clinical Practice Guidelines, 2017). The reference range is an Antigen minus Nil result of <0.35 IU/mL. Chemiluminescence immunoassay methodology QuantiFERON Criteria QuantiFERON-TB Gold Plus is a qualitative indirect test for M tuberculosis infection (including disease) and is intended for use in conjunction with risk assessment, radiography, and other medical and diagnostic evaluations. The QuantiFERON-TB Gold Plus result is determined by subtracting the Nil value from either TB antigen (Ag) value. The Mitogen tube serves as a control for the test. QuantiFERON TB1 Ag Value 0.03 QuantiFERON TB2 Ag Value 0.01 QuantiFERON Nil Value 0.00 QuantiFERON Mitogen Value >10.00 Reason For Referral No Information Medications Medication SIG (Take, Route, Frequency, Duration) Notes Start Date End Date Status Austedo XR 24 MG 1 tablet Orally Once a day; Duration: 30 days please send to [facility] Active Haloperidol 5 MG 1 tablet Orally Once a day; Duration: 30 days please send to [facility] Active Invega Trinza 819 MG/2.63ML as directed Intramuscular every 84 days due around Jan 10, Active traZODone HCl 100 MG 2 tablet at bedtime Orally at bedtime; Duration: 30 days please send to [facility] Active Haloperidol 5 mg TAKE 1 TABLET BY PRIMITIVO TH DAILY; Duration: 30 Active lamoTRIgine 25 MG 2 tablets for 50 mg Orally Once daily at night; Duration: 30 days please send to [facility] Active hydrOXYzine Pamoate 50 MG 2 capsules for 100 mg Orally Once a day; Duration: 30 days at night please send to [facility] Active hydrOXYzine Pamoate 50 mg TAKE 2 CAPSULES BY MOUTH EVERY NIGHT; Duration: 30 Active Social History Tobacco Use: Social History Observation Description Date Details (start date - stop date) Current Smoker NA - NA Sex Assigned At : Social History Observation Description Sex Assigned At Male PRAPARE Question Answer Notes Date Completed/Updated: 04/17/2024 What is your current housing situation? I have h ousing Are you worried about losing your housing? No What is the highest level of school that you have finished? High school diploma or GED What is your current work situation? 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 Check all that apply I do not have problems meeting my needs Has lack of transportation k ept you from medical appointments, meetings, work or from getting things needed for daily living? No How often do you see or talk to people that you care about and feel close to? (For example: talking to friends on the phone, visiting friends or family, going to worship or club meetings) 3 to 5 times a week How stressed are you? Stress is when someone feels tense, nervous, anxious, or can\t sleep at night because their mind is troubled A little bit In the past year have you sp ent more than 2 nights in a row in a [facility], [facility], penitentiary center, or juvenile correctional facility? No Are you a refugee? No What country are you from? [place] Do you feel physically and e motionally safe where you currently live? Yes In the past year, have you b een afraid of your partner or ex-partner? No PRAPARE Score: 6 Tobacco Control (Standard) Question Answer Notes Tobacco use: Current smoker Problems Problem Type SNOMED Code ICD Code Onset Dates Problem Status W/U Status Risk Notes Problem Tobacco user (238052962) Nicotine dependence, unspecified, uncomplicated (F17.200) Active confirmed Problem Schizoaffective disorder, bipolar type (49705792) Schizoaffective disorder, bipolar type (F25.0) 02/03/20 24 Active confirmed Problem Generalized anxiety disorder (41517005) Generalized anxiety disorder (F41.1) Active confirmed Problem Abdominal pain (95901836) Abdominal pain (R10.9) Active confirmed Problem Foot pain (01379692) Foot pain (M79.673) Active confirmed Problem Insomnia due to mental disorder (33117078) Insomnia due to mental disorder (F51.05) 02/03/20 24 Active confirmed Problem Alcohol use disorder (0724152893) Alcohol use disorder (F10.99) Active confirmed Problem Nightmares (230741031) Nightmares (F51.5) 02/03/20 24 Active confirmed Problem Methamphetamine abuse (248581304) Methamphetamine abuse (F15.10) Active confirmed Problem History of methamphetamine use (78617876959540827 ) Methamphetamine use (F15.10) Active confirmed Problem Physical examination (7480032) Routine physical examination (Z00.00) Active confirmed Problem Cocaine abuse (40077133) Cocaine use (F14.10) Active confirmed Problem Difficulty sleeping (034756270) Sleeping difficulty (G47.9) Active confirmed Problem Obesity (043464520) Obesity (BMI 30-39.9) (E66.9) Active confirmed Problem Tobacco use (001748740) Tobacco use disorder (F17.200) Active confirmed Problem Obesity (909563292) Obesity, unspecified classification, unspecified obesity type, unspecified whether serious comorbidity present (E66.9) Active confirmed Problem Cocaine dependence in remission (262062001) Cocaine use disorder, moderate, in early remission (F14.21) Active confirmed Problem Stimulant dependence (141259968) Methamphetamine use disorder, 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) Active confirmed Problem Cannabis use disorder (1540007460) Cannabis use disorder (F12.90) Active confirmed Vital Signs Heart Rate 86 /min 07/24/2024 Temperature 98.4 degrees Fahrenheit 07/24/2024 Respiratory Rate 16 /min 07/24/2024 Oximetry 96 % 07/24/2024 Blood pressure diastolic 78 mm Hg 07/24/2024 Height 67 in 07/24/2024 Blood pressure systolic 118 mm Hg 07/24/2024 Weight 248.0 lbs 07/24/2024 BMI 38.84 kg/m2 07/24/2024 Encounters Encounter Location Date Provider Diagnosis [address] [address] 12/30/2023 Kyria Alesha Schizoaffective disorder, bipolar type F25.0 and Methamphetamine use F15.[address] [address] 01/19/2024 Arvin Gonzales [facility] in adult Z00.00 ; Methamphetamine use disorder, severe F15.20 ; Nicotine dependence, unspecified, uncomplicated F17.200 ; Cocaine use disorder, moderate, in early remission F14.21 ; Deep inguinal pain, left R10.30 and Schizoaffective disorder, bipolar type F25.[address] [address] 02/02/2024 Marco Antonio Mercado Schizoaffective disorder, bipolar type F25.[address] [address] 02/03/2024 Kyria Eduardo Schizoaffective disorder, bipolar type F25.0 ; Nightmares F51.5 ; Insomnia due to mental disorder F51.05 ; Methamphetamine use F15.10 and Tardive dyskinesia G24.[address] [address] 02/21/2024 Rosalinda Harrison Schizoaffective disorder, bipolar type F25.0 ; Nightmares F51.5 ; Insomnia due to mental disorder F51.05 ; Methamphetamine use F15.10 and Tardive dyskinesia G24.[address] [address] 03/15/2024 Brenna Sutherland Symptoms of urinary tract infection R39.9 and Exposure to potential infection Z20.[address] [address] 03/15/2024 Brenna Sutherland Exposure to potentia l infection Z20.9 and Symptoms of urinary tract infection R39.[address] [address] 03/29/2024 Brenna Sutherland Dysuria R30.[address] [address] 04/24/2024 Rosalinda Hunter Schizoaffective disorder, bipolar type F25.0 ; Nightmares F51.5 ; Insomnia due to mental disorder F51.05 ; Methamphetamine use F15.10 and Tardive dyskinesia G24.[address] [address] 04/24/2024 Rosalinda Hunter Schizoaffective disorder, bipolar type F25.[address] [address] 05/18/2024 Rosalinda Hunter Schizoaffective disorder, bipolar type F25.0 ; Nightmares F51.5 ; Insomnia due to mental disorder F51.05 ; Methamphetamine use F15.10 and Tardive dyskinesia G24.[address] [address] 05/31/2024 Rosalinda Hunter Schizoaffective disorder, bipolar type F25.0 ; Nightmares F51.5 ; Insomnia due to mental disorder F51.05 ; Methamphetamine use F15.10 and Tardive dyskinesia G24.01 [facility] [address] [place] [address] 06/20/2024 Brenna Sutherland Adult general medica l exam Z00.00 [facility] [address] [place] [address] 06/27/2024 Rosalindarajiv HinojosaHunter Schizoaffective disorder, bipolar type F25.0 ; Nightmares F51.5 ; Insomnia due to mental disorder F51.05 ; Methamphetamine use F15.10 and Tardive dyskinesia G24.[address] [place] [address] 07/24/2024 Rosalinda Harrison Schizoaffective disorder, bipolar type F25.0 ; Nightmares F51.5 ; Insomnia due to mental disorder F51.05 ; Methamphetamine use F15.10 and Tardive dyskinesia G24.[address] [place] [address] 10/26/2024 Rosalinda Harrison Schizoaffective disorder, bipolar type F25.0 ; Nightmares F51.5 ; Insomnia due to mental disorder F51.05 ; Methamphetamine use F15.10 and Tardive dyskinesia G24.01 [facility] [address] [address] 12/23/2023 Jos [facility] [address] [place] [address] 12/28/2023 Jerry Eduardo [facility] [address] [place] [address] 01/19/2024 Arvin Gonzales [facility] [address] [place] [address] 01/20/2024 Arvin Gonzales Sleeping difficulty G47.9 [facility] [address] [place] [address] 01/24/2024 Jos Ness [facility] [address] [place] [address] 01/26/2024 Jerry Eduardo [facility] [address] [place] [address] 01/28/2024 [facility] [address] [place] [address] 01/28/2024 Jos Ness [facility] [address] [place] [address] 02/02/2024 Marco Antonio Mercado [facility] [address] [place] [address] 02/03/2024 Jerry [facility] [address] [place] [address] 02/03/2024 Jerry Frenchanan [facility] [address] [place] [address] 02/11/2024 Jos Ness [facility] [address] [place] [address] 02/14/2024 Jos Ness Insomnia due to ment al disorder F51.05 [facility] [address] [place] [address] 03/08/2024 Rosalinda Harrison [address] [place] [address] 03/13/2024 Jos Ness [address] [place] [address] 03/20/2024 Brenna Sutherland [address] [facility] [place] [address] 04/11/2024 Rosalinda Harrison [address] [facility] [place] [address] 04/18/2024 Rosalinda Harrison Schizoaffective disorder, bipolar type F25.[address] [place] [address] 04/20/2024 Jos Ness [address] [place] [address] 04/25/2024 Rosalinda Harrison [address] [place] [address] 05/23/2024 Rosalinda Harrison Insomnia due to ment al disorder F51.05 [facility] [address] [place] [address] 07/17/2024 Rosalinda Harrison [facility] [address] [facility] [place] [address] 11/08/2024 Rosalinda Hinojosannan [address] [place] [address] 11/16/2024 Rosalindarajiv HinojosaHunter Nightmares F51.5 and Schizoaffective disorder, bipolar type F25.0 [facility] [address] [place] [address] 01/18/20[facility] Schizoaffective disorder, bipolar type F25.0 Assessments Encounter Date Diagnosis (ICD Code) Assessment Notes Treatment Notes Treatment Clinical Notes Section Notes 12/30/2023 Schizoaffective disorder, bipolar type (ICD-10 - F25.0) Today's visit: Patient with h/o schizoaffective disorder, substance use disorder, tardive dyskinesia, currently incarcerated with worsening irritability and racing thoughts (reports prevoius davide), and recent substance use. Confirmed with [facility] nurse that he is taking his his current medications, changing dose of Remeron and Lamictal based on what he is presently taking. Spoke with Casandra LOPES who confirms pt was at [facility] recently and received Invega Sustenna injection on 12/01/23 as they did not have the Trinza. Will continue Invega Sustenna 234 mg as he appears to be mostly stable during this appt. Continue other medications at currently prescribed. Encourage continued participation in mental health court and substance abuse treatment upon release. Patient also reporting genital pain - recommend f/u with PCP for further evaluation. No acute safety concerns the time of this appt, he is agreeable to treatment plan and was provided an opportunity to ask questions. May self-administer medications or be administered own oral medications per [place] protocols. Provided informed consent with understanding of side effects, adverse effects, risks and benefits as well as alternative treatments as previously discussed and with the above recommended medications & other aspects of the treatment program. Agrees to return sooner if symptoms worsen or suicidal or homicidal ideations occur. 12/30/2023 Methamphetamine use (ICD-10 - F15.10) 01/18/2024 Schizoaffective disorder, bipolar type (ICD-10 - F25.0) 01/19/2024 Methamphetamine use disorder, severe (ICD-10 - F15.20) 01/20/2024 Sleeping difficulty (ICD-10 - G47.9) 02/02/2024 Schizoaffective disorder, bipolar type (ICD-10 - F25.0) 02/03/2024 Schizoaffective disorder, bipolar type (ICD-10 - F25.0) 01/19/2024 Encounter for wellness examination in adult (ICD-10 - Z00.00) 02/03/2024 Nightmares (ICD-10 - F51.5) 02/14/2024 Insomnia due to mental disorder (ICD-10 - F51.05) 02/21/2024 Schizoaffective disorder, bipolar type (ICD-10 - F25.0) 03/15/2024 Exposure to potential infection (ICD-10 - Z20.9) 03/29/2024 Dysuria (ICD-10 - R30.0) 04/18/2024 Schizoaffective disorder, bipolar type (ICD-10 - F25.0) 04/24/2024 Schizoaffective disorder, bipolar type (ICD-10 - F25.0) 04/24/2024 Schizoaffective disorder, bipolar type (ICD-10 - F25.0) starting low-dose topiramate for appetite and weight gain, discussed r/b/se. Take as prescribed. Reviewed Invega purpose (mood stability), benefits, and risks - low blood pressure, metabolic syndrome with high cholesterol or high blood sugars, change in cardiac conduction, nausea, vomiting, temporary or permanent movement disorders, and akathisia. 03/15/2024 Symptoms of urinary tract infection (ICD-10 - R39.9) 03/15/2024 Exposure to potential infection (ICD-10 - Z20.9) 05/18/2024 Schizoaffective disorder, bipolar type (ICD-10 - F25.0) Continue topiramate for appetite and weight gain, discussed r/b/se. Take as prescribed. Reviewed Invega purpose (mood stability), benefits, and risks - low blood pressure, metabolic syndrome with high cholesterol or high blood sugars, change in cardiac conduction, nausea, vomiting, temporary or permanent movement disorders, and akathisia. Stop Halidol- monitor bipolar chemistry 05/23/2024 Insomnia due to mental disorder (ICD-10 - F51.05) 05/31/2024 Schizoaffective disorder, bipolar type (ICD-10 - F25.0) Continue topiramate for appetite and weight gain, discussed r/b/se. Take as prescribed. Reviewed Invega purpose (mood stability), benefits, and risks - low blood pressure, metabolic syndrome with high cholesterol or high blood sugars, change in cardiac conduction, nausea, vomiting, temporary or permanent movement disorders, and akathisia. 06/20/2024 Adult general medical exam (ICD-10 - Z00.00) 06/27/2024 Schizoaffective disorder, bipolar type (ICD-10 - F25.0) Client reports smelling weird, the meds come out my pores. Increasing haloperidol, stopping mirtazapine. Continue topiramate for appetite and weight gain, discussed r/b/se. Take as prescribed. Reviewed Invega, Haldol purpose (mood stability), benefits, and risks - low blood pressure, metabolic syndrome with high cholesterol or high blood sugars, change in cardiac conduction, nausea, vomiting, temporary or permanent movement disorders, and akathisia. 07/24/2024 Schizoaffective disorder, bipolar type (ICD-10 - F25.0) States doing well with past changes to meds, continue. Continue topiramate for appetite and weight gain, discussed r/b/se. Take as prescribed. Reviewed Invega, Haldol purpose (mood stability), benefits, and risks - low blood pressure, metabolic syndrome with high cholesterol or high blood sugars, change in cardiac conduction, nausea, vomiting, temporary or permanent movement disorders, and akathisia. 10/26/2024 Schizoaffective disorder, bipolar type (ICD-10 - F25.0) States doing well with past changes to meds, continue. Continue topiramate for appetite and weight gain, discussed r/b/se. Take as prescribed. Reviewed Invega, Haldol purpose (mood stability), benefits, and risks - low blood pressure, metabolic syndrome with high cholesterol or high blood sugars, change in cardiac conduction, nausea, vomiting, temporary or permanent movement disorders, and akathisia. 11/16/2024 Nightmares (ICD-10 - F51.5) 11/16/2024 Schizoaffective disorder, bipolar type (ICD-10 - F25.0) 10/26/2024 Nightmares (ICD-10 - F51.5) 07/24/2024 Nightmares (ICD-10 - F51.5) 06/27/2024 Nightmares (ICD-10 - F51.5) 05/31/2024 Nightmares (ICD-10 - F51.5) 05/18/2024 Nightmares (ICD-10 - F51.5) 03/15/2024 Symptoms of urinary tract infection (ICD-10 - R39.9) 04/24/2024 Nightmares (ICD-10 - F51.5) 02/21/2024 Nightmares (ICD-10 - F51.5) 02/03/2024 Insomnia due to mental disorder (ICD-10 - F51.05) 01/19/2024 Nicotine dependence, unspecified, uncomplicated (ICD-10 - F17.200) he was counseled on stopping smoking cigarettes. Since he is in residential rehabilitation for methamphetamine use and cocaine use disorders, this would not be the best time for him to stop smoking. However, he should start thinking about this so that he has a plan to stop smoking sometime in the not too distant future. 02/21/2024 Insomnia due to mental disorder (ICD-10 - F51.05) 02/03/2024 Methamphetamine use (ICD-10 - F15.10) 01/19/2024 Cocaine use disorder, moderate, in early remission (ICD-10 - F14.21) 04/24/2024 Insomnia due to mental disorder (ICD-10 - F51.05) 05/18/2024 Insomnia due to mental disorder (ICD-10 - F51.05) client concerned about weight- adjusting 05/31/2024 Insomnia due to mental disorder (ICD-10 - F51.05) Reports not sleeping with removal of Haldol even with increase in trazodone to 300mg, decrease back to 200mg and restarting low-dose Haldol. Discussed r/b/se. 06/27/2024 Insomnia due to mental disorder (ICD-10 - F51.05) 07/24/2024 Insomnia due to mental disorder (ICD-10 - F51.05) 10/26/2024 Insomnia due to mental disorder (ICD-10 - F51.05) 10/26/2024 Methamphetamine use (ICD-10 - F15.10) 07/24/2024 Methamphetamine use (ICD-10 - F15.10) 06/27/2024 Methamphetamine use (ICD-10 - F15.10) 05/31/2024 Methamphetamine use (ICD-10 - F15.10) 05/18/2024 Methamphetamine use (ICD-10 - F15.10) 04/24/2024 Methamphetamine use (ICD-10 - F15.10) 02/03/2024 Tardive dyskinesia (ICD-10 - G24.01) Today's visit: Patient is a 43 year old male who presents for a psychiatric follow up appt over phone and is currently in [place], [place]. with h/o schizoaffective disorder, substance use disorder, tardive dyskinesia. Previously seen on 12/30/2023 while incarcerated and is a patient of Rosalinda ALEXANDER (seen during temporary absence initially), and during this appt was continued on Austedo 24 mg, Haldol 5 mg BID, Remeron 15 mg, Lamictal 50 mg, hydroxyzine 50 mg as needed, and transitioned from Invega Trinza to Sustenna. Previous PHQ-9 score of 13, today is 3. Reports insomnia and nightmares are improving with addition of trazodone 50mg and prazosin 2mg at bedtime. Discussed initially discontinuing mirtazapine as it appears to be for sleep, however [facility] staff report he is taking 30 mg (not 15 mg) and it is unclear if he is taking this medication for sleep or depression - will continue at current dose until he meets with his scheduled psych provider next appt. Discussed treatment goals of reducing polypharmacy. Continue current dose of lamotrigine for mood stabilization. Invega Trinza injection administered 02/02/24. Will officially discontinue Haldol as he is no longer taking. Continue hydroxyzine 25mg BID prn anxiety. Will reorder Austedo as he is taking for Tardive Dyskinesia and is reporting benefit. Unable to complete AIMS due to nature of appt, denies any irregular muscle movements; would benefit from an in person appointment. No acute safety concerns the time of this appt, he is agreeable to treatment plan and was provided an opportunity to ask questions. May self-administer medications or be administered own oral medications per [facility] protocols. Provided informed consent with understanding of side effects, adverse effects, risks and benefits as well as alternative treatments as previously discussed and with the above recommended medications & other aspects of the treatment program. Agrees to return sooner if symptoms worsen or suicidal or homicidal ideations occur. 02/21/2024 Methamphetamine use (ICD-10 - F15.10) 01/19/2024 Deep inguinal pain, left (ICD-10 - R10.30) he was reassured that the hernia has not recurred and the pain he takes experiences is not of any serious origin 01/19/2024 Schizoaffective disorder, bipolar type (ICD-10 - F25.0) he has had 2 doses of Invega Sustenna and now can be switched at his next dose to Invega Trinza which he has successfully taken before. 02/21/2024 Tardive dyskinesia (ICD-10 - G24.01) 04/24/2024 Tardive dyskinesia (ICD-10 - G24.01) 05/18/2024 Tardive dyskinesia (ICD-10 - G24.01) 05/31/2024 Tardive dyskinesia (ICD-10 - G24.01) States this is working well at this time, denies SE. My TD is doing really well right now. 06/27/2024 Tardive dyskinesia (ICD-10 - G24.01) States this is working well at this time, denies SE. My TD is doing really well right now. 07/24/2024 Tardive dyskinesia (ICD-10 - G24.01) States this is working well at this time, denies SE. My TD is doing really well right now. 10/26/2024 Tardive dyskinesia (ICD-10 - G24.01) States this is working well at this time, denies SE. My TD is doing really well right now. 01/19/2024 Other he is appropria te for the [facility]. He is also able to self administer all of his own medications, except for the Invega Trinza which will be given intramuscularly on 01/31/24. He can participate in all activities of the program. 02/21/2024 Other Reasons, potential benefits, potential risks, interactions and side effects of all medications were discussed. The Patient/Guardian asked appropriate questions, appeared to understand the answers, and decided to accept the treatment and continue being followed. Alternatives and expected course without treatment were reviewed. The Patient/Guardian is aware of the need to contact the office or return for an earlier appointment if any problems or concerns arise. May also contact the 24-hour crisis hotline ([facility]), refer to the closest emergency room or call 911 if new symptoms arise of existing symptoms worsen. The Patient/Guardian is aware that this would apply to symptoms like: suicidal ideation, homicidal ideation, high risk behaviors, manic symptoms, psychotic symptoms, physical symptoms, or any other symptoms that may be dangerous to self or others. Greater than 50% of time spent on coordination and counseling where psychopharmacology as well as psychotherapeutic interventions were discussed along with review of treatments in the past. Education provided concerning need for adequate hydration. Patient/Guardian verbalized understanding of education, treatment plan and follow up. 04/24/2024 Other Reasons, potential benefits, potential risks, interactions and side effects of all medications were discussed. The Patient/Guardian asked appropriate questions, appeared to understand the answers, and decided to accept the treatment and continue being followed. Alternatives and expected course without treatment were reviewed. The Patient/Guardian is aware of the need to contact the office or return for an earlier appointment if any problems or concerns arise. May also contact the 24-hour crisis hotline ([facility]), refer to the closest emergency room or call 911 if new symptoms arise of existing symptoms worsen. The Patient/Guardian is aware that this would apply to symptoms like: suicidal ideation, homicidal ideation, high risk behaviors, manic symptoms, psychotic symptoms, physical symptoms, or any other symptoms that may be dangerous to self or others. Greater than 50% of time spent on coordination and counseling where psychopharmacology as well as psychotherapeutic interventions were discussed along with review of treatments in the past. Education provided concerning need for adequate hydration. Patient/Guardian verbalized understanding of education, treatment plan and follow up. This session was completed telephonically with client/parental/guard linda consent: Unable to determine movement status, assess appearance, affect, AIMS, or vital signs. 05/18/2024 Other Reasons, potential benefits, potential risks, interactions and side effects of all medications were discussed. The Patient/Guardian asked appropriate questions, appeared to understand the answers, and decided to accept the treatment and continue being followed. Alternatives and expected course without treatment were reviewed. The Patient/Guardian is aware of the need to contact the office or return for an earlier appointment if any problems or concerns arise. May also contact the 24-hour crisis hotline ([facility]), refer to the closest emergency room or call 911 if new symptoms arise of existing symptoms worsen. The Patient/Guardian is aware that this would apply to symptoms like: suicidal ideation, homicidal ideation, high risk behaviors, manic symptoms, psychotic symptoms, physical symptoms, or any other symptoms that may be dangerous to self or others. Greater than 50% of time spent on coordination and counseling where psychopharmacology as well as psychotherapeutic interventions were discussed along with review of treatments in the past. Education provided concerning need for adequate hydration. Patient/Guardian verbalized understanding of education, treatment plan and follow up. This session was completed telephonically with client/parental/guard linda consent: Unable to determine movement status, assess appearance, affect, AIMS, or vital signs. 05/31/2024 Other Reasons, potential benefits, potential risks, interactions and side effects of all medications were discussed. The Patient/Guardian asked appropriate questions, appeared to understand the answers, and decided to accept the treatment and continue being followed. Alternatives and expected course without treatment were reviewed. The Patient/Guardian is aware of the need to contact the office or return for an earlier appointment if any problems or concerns arise. May also contact the 24-hour crisis hotline ([facility]), refer to the closest emergency room or call 911 if new symptoms arise of existing symptoms worsen. The Patient/Guardian is aware that this would apply to symptoms like: suicidal ideation, homicidal ideation, high risk behaviors, manic symptoms, psychotic symptoms, physical symptoms, or any other symptoms that may be dangerous to self or others. Greater than 50% of time spent on coordination and counseling where psychopharmacology as well as psychotherapeutic interventions were discussed along with review of treatments in the past. Education provided concerning need for adequate hydration. Patient/Guardian verbalized understanding of education, treatment plan and follow up. This session was completed telephonically with client/parental/guard linda consent: Unable to determine movement status, assess appearance, affect, AIMS, or vital signs. 06/27/2024 Other Reasons, potential benefits, potential risks, interactions and side effects of all medications were discussed. The Patient/Guardian asked appropriate questions, appeared to understand the answers, and decided to accept the treatment and continue being followed. Alternatives and expected course without treatment were reviewed. The Patient/Guardian is aware of the need to contact the office or return for an earlier appointment if any problems or concerns arise. May also contact the 24-hour crisis hotline ([facility]), refer to the closest emergency room or call 911 if new symptoms arise of existing symptoms worsen. The Patient/Guardian is aware that this would apply to symptoms like: suicidal ideation, homicidal ideation, high risk behaviors, manic symptoms, psychotic symptoms, physical symptoms, or any other symptoms that may be dangerous to self or others. Greater than 50% of time spent on coordination and counseling where psychopharmacology as well as psychotherapeutic interventions were discussed along with review of treatments in the past. Education provided concerning need for adequate hydration. Patient/Guardian verbalized understanding of education, treatment plan and follow up. This session was completed telephonically with client/parental/guard linda consent: Unable to determine movement status, assess appearance, affect, AIMS, or vital signs. 07/24/2024 Other Reasons, potential benefits, potential risks, interactions and side effects of all medications were discussed. The Patient/Guardian asked appropriate questions, appeared to understand the answers, and decided to accept the treatment and continue being followed. Alternatives and expected course without treatment were reviewed. The Patient/Guardian is aware of the need to contact the office or return for an earlier appointment if any problems or concerns arise. May also contact the 24-hour crisis hotline ([facility]), refer to the closest emergency room or call 911 if new symptoms arise of existing symptoms worsen. The Patient/Guardian is aware that this would apply to symptoms like: suicidal ideation, homicidal ideation, high risk behaviors, manic symptoms, psychotic symptoms, physical symptoms, or any other symptoms that may be dangerous to self or others. Greater than 50% of time spent on coordination and counseling where psychopharmacology as well as psychotherapeutic interventions were discussed along with review of treatments in the past. Education provided concerning need for adequate hydration. Patient/Guardian verbalized understanding of education, treatment plan and follow up. This session was completed telephonically with client/parental/guard linda consent: Unable to determine movement status, assess appearance, affect, AIMS, or vital signs. 10/26/2024 Other Reasons, potential benefits, potential risks, interactions and side effects of all medications were discussed. The Patient/Guardian asked appropriate questions, appeared to understand the answers, and decided to accept the treatment and continue being followed. Alternatives and expected course without treatment were reviewed. The Patient/Guardian is aware of the need to contact the office or return for an earlier appointment if any problems or concerns arise. May also contact the 24-hour crisis hotline ([facility]), refer to the closest emergency room or call 911 if new symptoms arise of existing symptoms worsen. The Patient/Guardian is aware that this would apply to symptoms like: suicidal ideation, homicidal ideation, high risk behaviors, manic symptoms, psychotic symptoms, physical symptoms, or any other symptoms that may be dangerous to self or others. Greater than 50% of time spent on coordination and counseling where psychopharmacology as well as psychotherapeutic interventions were discussed along with review of treatments in the past. Education provided concerning need for adequate hydration. Patient/Guardian verbalized understanding of education, treatment plan and follow up. This session was completed telephonically with client/parental/guard linda consent: Unable to determine movement status, assess appearance, affect, AIMS, or vital signs. Plan Of Treatment Pending Test Test Name Order Date CBC With Differential/Platelet* 08/24/19 21 Valproic Acid (Depakote)(R),S 08/23/2020 CMP 14 Comprehensive Metabolic Panel* Insurance Providers Payer Name Payer Address Payer Phone Subscriber Number Group Number Insured Name Patient Relationship to Insured Coverage Start Date Coverage End Date MEDICARE PART A [address] [place] [phone] [id number] Dominguez Hopper Self - patient is the insured 1 4 [facility] AARP Medicare [address] [address] [place] [address] [id number] Dominguez Hopper Self - patient is the insured 4 MEDICAID [address] [place] [address] [id number] Dominguez Hopper Self - patient is the insured 1 [employer] Medicare [address] [place] [address] [id number] Dominguez Hopper Self - patient is the insured 4 4 Medications Administered Medication Instructions Date of Administration Dosage Notes Invega Sustenna 08/03/2023 234 mg Invega Sustenna 12/01/2023 234 mg given at [facility] Invega Sustenna 12/30/2023 234 mg Given at [facility] Invega Trinza 09/24/2020 410 mg Pt nathan well Invega Trinza 12/19/2020 410 mg Pt nathan well . Invega Trinza 08/05/2021 410 mg Pt nathan well . Invega Trinza 02/05/2022 410 mg Pt nathan well . Invega Trinza 04/28/2022 410 mg Pt nathan well . Invega Trinza 07/20/2022 410 mg Invega Trinza 10/20/2022 410 mg Pt nathan well . Manufact by Michael Invega Trinza 09/02/2023 819 mg Manufact by Michael Pt nathan well. Invega Trinza 02/02/2024 819 mg Lary COMMERCIAL REPORTER, Mary Freeman LPN 02/02/2024 04:18:36 PM CDT >Patient tolerated well Invega Trinza 04/24/2024 819 mg Invega Trinza 07/20/2024 819 mg Invega Trinza 10/11/2024 819 mg Medical (General) History Medical History History ICD Code Schizoaffective disorder Marijuana use disorder Surgical History Surgery Date(Month/Year) Hernia repair Hernia repair on left and right side Hospitalization History Reason Date(Month/Year) Paul WHIPPLE 05/27/2021 David FANG 04/2021 Amy
[2024-11-28 02:00] VITALS: BP 147/96; PULSE 95; RESP 17; TEMP 36.8; O2SAT 100
[2024-11-28 02:50] VITALS: BP 143/94; PULSE 94; RESP 17; TEMP 36.4; O2SAT 99
--- OUTSIDE RECORDS SUMMARY | 2024-11-28 08:07 | XMS_ITS | Referral Summary ---
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
--- OUTSIDE RECORDS SUMMARY | 2024-11-28 08:07 | XMS_ITS | Clinical Summary ---
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
--- OUTSIDE RECORDS SUMMARY | 2024-11-28 08:07 | XMS_ITS | Continuity of Care Document ---
Author Organization [facility] Address [address] [place] [phone] Phone Care Team Providers Care Telegraph Office Route Aide Name Role Phone Corey RUBY, FACC, Marla Unavailable Unavailab le Procedures Procedure Date ELECTROCARDIOGRAM REPORT Advance Directives Directive Yes / No Effective Date File Name No Information Encounters Encounter Description Practice Location Reason(s) For Visit Diagnoses Date Provider Providers Copied on Encounter [facility], [address] [place] [address], [id number], tel:[phone] [facility] No Information Corey Gutiérrez. [address] [place] [address], [id number], . tel:[phone] Referring Provider: Marla Nicole, [address] [place] [address], [id number]. tel:[phone] Family History Family Member Type Diagnosis Age At Onset No Information Payers Payer name Insurance type Covered green party ID Authoriza tion(s) No Information Social [...]
--- OUTSIDE RECORDS SUMMARY | 2024-11-28 08:07 | XMS_ITS | Continuity of Care Document ---
Author Organization [facility] Address [address] [place] [address] Phone Care Team Providers Care Manufacturing Production Manager Name Role Phone Dano Kidd MD Unavailable Unavailable Advance Directives Directive Yes / No Effective Date File Name No Information Encounters Encounter Description Practice Location Reason(s) For Visit Diagnoses Date Provider Providers Copied on Encounter [facility], [address] [facility] [place] [place] [id number], [place] tel:[phone] [facility] No Information Bernabe Matson. [address] [facility] [place], [id number], [place]. tel:[phone] Family History Family Member Type Diagnosis Age [...]
--- OUTSIDE RECORDS SUMMARY | 2024-11-28 08:07 | XMS_ITS | Clinical Summary ---
Author Organization [facility] Address [address] [place] [address] Phone Care Team Providers Care Tool Liaison Name Role Phone Provider, None Primary Care [...] to complete this topic Insurance [facility]ICARE [facility] Care Teams Tool Liaison Relationship Specialty Start Date End Date Provider, None [place] PCP - General 10/25/19 Kong Rodriguez MD [address] [facility] [address] [place] [address] Consulting Physician Urology 05/12/24
== END 2024-11-28 08:15 | disposition left against medical advice (07) ==
PROVIDERS: PCP Nurse Practitioner
DX: R10.32 Left lower quadrant pain (principal)
CPT/HCPCS: 99199; 99281

== ENCOUNTER 2024-11-28 23:32 | Emergency (ER) | payer MEDICARE, SELFPAY ==
[2024-11-28 23:50] VITALS: BP 131/91; PULSE 85; RESP 16; TEMP 36.8; O2SAT 98
--- NOTE | 2024-11-29 00:09 | ED.PSYCH ---
HPI - Psych General Chief Complaint: Psychiatric Symptoms <Addis Alonso PA-C - Last Filed: 11/29/24 04:03> Stated Complaint: SI/HI/Hallucinations <Addis Alonso PA-C - Last Filed: 11/29/24 04:03> Time Seen by Provider: 11/28/24 23:42 <dAdis Alonso PA-C - Last Filed: 11/29/24 04:03> History of Present Illness HPI Narrative: 44-year-old male with a reported history of bipolar disorder, schizophrenia and schizoaffective disorder presents to the emergency department via EMS for SI and HI. Patient states he has had thoughts of SI and HI for several weeks. When asked if he has a plan for SI he states ?sometimes I think about cutting myself?, however denies acting on this. He denies a plan for HI. He does note that he has had some auditory visual hallucinations. States sometimes he hears voices telling him to harm himself and other people however he has not acted on this. He admits to several prior psychiatric admissions in the past. He lives in an apartment by himself. He denies access to weapons or firearms. He admits to using meth 2 days ago and states he had a 16 oz mixed drink today at 5:00 p.m.. His psychiatrist is Rosalinda Harrison NP. He states a couple weeks ago he had his Haldol does decreased but otherwise denies any medication changes. He states he has been compliant with his medications which include Haldol, trazodone and hydroxyzine. <Addis Alonso PA-C - Last Filed: 11/29/24 04:03> Related Data Home Medications: Home Medications ?Medication ?Instructions ?Recorded ?Confirmed ?Last Taken ?Type divalproex 500 mg tablet,delayed 500 mg PO BID 04/04/19 02/02/23 09/23/22 07:45 History release haloperidol 5 mg tablet 5 mg PO BID 04/04/19 02/02/23 09/23/22 07:45 History paliperidone palm (3 month) 546 546 mg IM [id number] 11/27/19 02/02/23 Unknown History mg/1.75 mL intramuscular syringe (Invega Trinza) benztropine 0.5 mg tablet 0.5 mg PO BID 04/22/20 02/02/23 09/23/22 07:45 History hydroxyzine HCl 25 mg tablet 25 mg PO BID PRN ANXIETY 05/14/22 02/02/23 09/22/22 History <Addis Alonso PA-C - Last Filed: 11/29/24 04:03> Allergies/Adverse Reactions: Allergies Allergy/AdvReac Type Severity Reaction Status Date / Time Penicillins AdvReac Unknown Nausea and Verified 11/28/24 02:08 Vomiting <Addis Alonso PA-C - Last Filed: 11/29/24 04:03> Review of Systems Review of Systems: All systems reviewed & are unremarkable except as noted in HPI and below <Addis Alonso PA-C - Last Filed: 11/29/24 04:03> PMFSH Past Medical History Medical History: Medical History Schizophrenia <Addis Alonso PA-C - Last Filed: 11/29/24 04:03> Surgical History Surgical History: Surgical History History of inguinal hernia repair 09/23/22 Robotic laparoscopic right inguinal hernia repair with 3DMax mesh Left inguinal hernia repair with mesh ~[address] [place] <Addis Alonso PA-C - Last Filed: 11/29/24 04:03> Family History Family History: Family History Mother Patient's mother is in good health <Addis Alonso PA-C - Last Filed: 11/29/24 04:03> Social History Social History: Social History Smoking packs per day: 1 Smoking cigarettes per day: 20.0 Years smoked: 15 Smoking pack-years: 15.00 Smoking status: Current every day smoker Tobacco type: cigarettes Substance use: never Substance use type: methamphetamine Gender identity (if verbalized by the patient): Male Sexual Orientation (if Verbalized by the Patient): Straight or Heterosexual Spiritual care concerns: No <Addis Alonso PA-C - Last Filed: 11/29/24 04:03> Exam Narrative: GENERAL: Well-appearing, well-nourished, and in no acute distress. HEAD: Normocephalic, atraumatic. ENT: Nares clear, no rhinorrhea or epistaxis. Mucous membranes moist. NECK: Supple. CHEST: Clear to auscultation. No respiratory distress. HEART: Regular rate and rhythm. No murmur heard. Normal peripheral pulses. EXTREMITIES: Normal range of motion. No edema. SKIN: Warm, dry, no rash. NEURO: No focal deficits. Alert and oriented x3 PSYCH: Resting comfortably in exam bed. Flat affect, answering questions appropriately. Admits to SI and HI. Not actively responding to internal stimuli. <KJ Grissom Last Filed: 11/29/24 04:03> Course Course Emergency Course: I was informed this patient was in the ED. After assessment by crisis team, they do have a plan to discharge him but he has close follow up and in fact they suspect a bed for outpatient therapy will be opening up within the next 12-24 hours. I did not personally evaluate this patient but was available for consultation while in the department. <Nataly Griffin MD - Last Filed: 12/04/24 19:04> Vital Signs Vital signs: Vital Signs Temperature 98.3 F 11/28/24 23:50 Pulse Rate 85 11/28/24 23:50 Respiratory Rate 16 11/28/24 23:50 Blood Pressure 131/91 H 11/28/24 23:50 Pulse Oximetry 98 11/28/24 23:50 Oxygen Delivery Room Air 11/28/24 23:50 Temperature 98.3 F 11/28/24 23:50 Pulse Rate 85 11/28/24 23:50 Respiratory Rate 16 11/28/24 23:50 Blood Pressure 131/91 H 11/28/24 23:50 Pulse Oximetry 98 11/28/24 23:50 Oxygen Delivery Room Air 11/28/24 23:50 <Addis Alonso PA-C - Last Filed: 11/29/24 04:03> Vital Signs Temperature 98.3 F 11/28/24 23:50 Pulse Rate 85 11/28/24 23:50 Respiratory Rate 16 11/28/24 23:50 Blood Pressure 131/91 H 11/28/24 23:50 Pulse Oximetry 98 11/28/24 23:50 Oxygen Delivery Room Air 11/28/24 23:50 Temperature 98.3 F 11/28/24 23:50 Pulse Rate 85 11/28/24 23:50 Respiratory Rate 16 11/28/24 23:50 Blood Pressure 131/91 H 11/28/24 23:50 Pulse Oximetry 98 11/28/24 23:50 Oxygen Delivery Room Air 11/28/24 23:50 <Nataly Griffin MD - Last Filed: 12/04/24 19:04> MDM - Psych MDM Narrative Medical decision making narrative: 44-year-old male with a reported history of bipolar disorders, schizophrenia, schizoaffective disorder presents emergency department for SI and HI. See HPI for further history. Triage vitals are stable. Patient is resting comfortably in exam bed, pleasant and cooperative. Exam is notable for the above. UDS positive for amphetamines and cannabinoids. Alcohol level is 26. Remainder of lab work is largely unremarkable. Patient medically cleared for crisis evaluation. Patient evaluated by crisis. Patient denies any SI or HI crisis and is deemed appropriate for discharge. Apparently patient was seen by crisis yesterday at his home who got patient accepted to [facility]. The patient is waiting for a bed assignment at [facility] which should happen in the next 24 hours per Crisis member. The patient's brother is now at bedside who is taking the patient home under his care. He agrees with the plan. The patient continues to deny any SI or HI. They were advised to follow-up closely with [facility] and the patient's psychiatrist and given strict ED return precautions. Patient is agreeable to plan verbalized understanding. Discharged in stable condition. <Addis Alonso PA-C - Last Filed: 11/29/24 04:03> Lab Data Result diagrams: 11/29/24 00:29 11/29/24 00:29 <Addis Alonso PA-C - Last Filed: 11/29/24 04:03> Labs: Lab Results 11/29/24 11/29/2425 Range/Units 00:02 00:03 00:29 WBC 9.2 (4.5-10.0) K/mm3 RBC 4.86 (4.6-6.20) M/mm3 Hgb 13.6 L (14.0-18.0) g/dL Hct 41.3 L (42.0-52.0) % MCV 85.0 (80-100) fl MCH 28.0 (26-34) pg MCHC 32.9 (32-36) g/dl RDW 15.5 H (11.5-14.5) % Plt Count 322 (150-375) k/mm3 MPV 9.5 (7.4-10.4) fl Immature Gran % (Auto) 4.9 H (0-0.5) % Neut % (Auto) 62.7 (45.5-73.1) % Lymph % (Auto) 21.4 (18.3-44.2) % Wilcox % (Auto) 10.4 H (2.6-8.5) % Eos % (Auto) 0.2 (0-4.4) % Baso % (Auto) 0.4 (0.2-1.2) % Lymph # (Auto) 1.96 (0.9-3.2) K/mm3 Wilcox # (Auto) 1.0 H (0.1-0.6) K/mm3 Eos # (Auto) 0.0 (0-0.3) K/mm3 Baso # (Auto) 0.0 (0.0-0.1) K/mm3 Abs Immat Gran (auto) 0.45 H (0.00-0.031) K/mm3 Absolute Neuts (auto) 5.7 (1.3-6.7) K/mm3 Absolute Nucleated RBC 0.000 (0.0-0.012) K/mm3 Nucleated RBC % 0.0 (0.0-0.2) % Sodium 139 (137-145) mmol/L Potassium 3.8 (3.4-5.0) mmol/L Chloride 108 H (98-107) mmol/L Carbon Dioxide 23 (22-30) mmol/L Anion Gap 8 (4-12) mmol/L BUN 5 L D (9-20) mg/dL Creatinine 0.87 (0.7-1.3) mg/dL Estim Creat Clear Calc 90 ml/min Estimated GFR > 60 (59 - ) Glucose 94 (65-110) mg/dL Calcium 9.2 (8.4-10.2) mg/dL Total Bilirubin 0.5 (0.2-1.3) mg/dL AST 32 (17-59) U/L ALT 20 (6-50) U/L Alkaline Phosphatase 94 (38-126) U/L Total Protein 7.7 (6.3-8.2) g/dL Albumin 4.3 (3.5-5.1) g/dL TSH 0.861 (0.465-4.680) uIU/mL Urine Color Yellow (Yellow) Urine Appearance Clear (Clear) Urine pH 6.0 (5.0-9.0) Ur Specific Warren 1.009 (1.001-1.035) Urine Protein Negative (Negative) mg/dL Urine Glucose (UA) Negative (Negative) mg/dL Urine Ketones Trace H (Negative) mg/dL Ur Blood (Man) Negative (Negative) Urine Nitrate Negative (Negative) Urine Bilirubin Negative (Negative) Urine Urobilinogen 1.0 (<2.0) mg/dL Leukocyte Esterase Rfl Negative (Negative) KERA/UL Salicylates < 1.0 L (2-20) mg/dL Urine Opiates Screen Negative (Negative) Urine Methadone Screen Negative (Negative) Acetaminophen < 10 L (10-30) ug/mL Ur Barbiturates Screen Negative (Negative) Ur Phencyclidine Scrn Negative (Negative) Ur Amphetamine Screen Positive A (Negative) U Benzodiazepines Scrn Negative (Negative) Urine Cocaine Screen Negative (Negative) U Cannabinoids Screen Positive A (Negative) Ethyl Alcohol 26 (<10) mg/dL Influenza A (RT-PCR) Negative (Negative) Influenza B (RT-PCR) Negative (Negative) RSV (RT-PCR) Negative (Negative) SARS-CoV-2 RNA (RT-PCR) Negative (Negative) <Addis Alonso PA-C - Last Filed: 11/29/24 04:03> Lab Results 11/29/24 11/29/24 11/29/24 Range/Units 00:02 00:03 00:29 WBC 9.2 (4.5-10.0) K/mm3 RBC 4.86 (4.6-6.20) M/mm3 Hgb 13.6 L (14.0-18.0) g/dL Hct 41.3 L (42.0-52.0) % MCV 85.0 (80-100) fl MCH 28.0 (26-34) pg MCHC 32.9 (32-36) g/dl RDW 15.5 H (11.5-14.5) % Plt Count 322 (150-375) k/mm3 MPV 9.5 (7.4-10.4) fl Immature Gran % (Auto) 4.9 H (0-0.5) % Neut % (Auto) 62.7 (45.5-73.1) % Lymph % (Auto) 21.4 (18.3-44.2) % Wilcox % (Auto) 10.4 H (2.6-8.5) % Eos % (Auto) 0.2 (0-4.4) % Baso % (Auto) 0.4 (0.2-1.2) % Lymph # (Auto) 1.96 (0.9-3.2) K/mm3 Wilcox # (Auto) 1.0 H (0.1-0.6) K/mm3 Eos # (Auto) 0.0 (0-0.3) K/mm3 Baso # (Auto) 0.0 (0.0-0.1) K/mm3 Abs Immat Gran (auto) 0.45 H (0.00-0.031) K/mm3 Absolute Neuts (auto) 5.7 (1.3-6.7) K/mm3 Absolute Nucleated RBC 0.000 (0.0-0.012) K/mm3 Nucleated RBC % 0.0 (0.0-0.2) % Sodium 139 (137-145) mmol/L Potassium 3.8 (3.4-5.0) mmol/L Chloride 108 H (98-107) mmol/L Carbon Dioxide 23 (22-30) mmol/L Anion Gap 8 (4-12) mmol/L BUN 5 L D (9-20) mg/dL Creatinine 0.87 (0.7-1.3) mg/dL Estim Creat Clear Calc 90 ml/min Estimated GFR > 60 (59 - ) Glucose 94 (65-110) mg/dL Calcium 9.2 (8.4-10.2) mg/dL Total Bilirubin 0.5 (0.2-1.3) mg/dL AST 32 (17-59) U/L ALT 20 (6-50) U/L Alkaline Phosphatase 94 (38-126) U/L Total Protein 7.7 (6.3-8.2) g/dL Albumin 4.3 (3.5-5.1) g/dL TSH 0.861 (0.465-4.680) uIU/mL Urine Color Yellow (Yellow) Urine Appearance Clear (Clear) Urine pH 6.0 (5.0-9.0) Ur Specific Warren 1.009 (1.001-1.035) Urine Protein Negative (Negative) mg/dL Urine Glucose (UA) Negative (Negative) mg/dL Urine Ketones Trace H (Negative) mg/dL Ur Blood (Man) Negative (Negative) Urine Nitrate Negative (Negative) Urine Bilirubin Negative (Negative) Urine Urobilinogen 1.0 (<2.0) mg/dL Leukocyte Esterase Rfl Negative (Negative) KERA/UL Salicylates < 1.0 L (2-20) mg/dL Urine Opiates Screen Negative (Negative) Urine Methadone Screen Negative (Negative) Acetaminophen < 10 L (10-30) ug/mL Ur Barbiturates Screen Negative (Negative) Ur Phencyclidine Scrn Negative (Negative) Ur Amphetamine Screen Positive A (Negative) U Benzodiazepines Scrn Negative (Negative) Urine Cocaine Screen Negative (Negative) U Cannabinoids Screen Positive A (Negative) Ethyl Alcohol 26 (<10) mg/dL Influenza A (RT-PCR) Negative (Negative) Influenza B (RT-PCR) Negative (Negative) RSV (RT-PCR) Negative (Negative) SARS-CoV-2 RNA (RT-PCR) Negative (Negative) <Nataly Griffin MD - Last Filed: 12/04/24 19:04> Discharge Plan Discharge Clinical Impression: Methamphetamine abuse <Addis Alonso PA-C - Last Filed: 11/29/24 04:03> Patient Disposition: Home <Addis Alonso PA-C - Last Filed: 11/29/24 04:03> Condition: Stable <Addis Alonso PA-C - Last Filed: 11/29/24 04:03> Instructions: Antibiotic Form, Schizophrenia (ED), Methamphetamine Use Disorder (ED) <Addis Alonso PA-C - Last Filed: 11/29/24 04:03> Additional Instructions: Please follow-up closely with [facility] and your psychiatrist. Return to the emergency department if you develop thoughts of harming yourself or other people, or other concerning symptoms. <Addis Alonso PA-C - Last Filed: 11/29/24 04:03> Patient Language: Guinean <Addis Alonso PA-C - Last Filed: 11/29/24 04:03> Prescriptions: No Action divalproex 500 mg tablet,delayed release (DR/EC) 500 mg PO BID haloperidol 5 mg tablet 5 mg PO BID hydroxyzine HCl 25 mg tablet 25 mg PO BID PRN (Reason: ANXIETY) omeprazole 40 mg capsule,delayed release(DR/EC) 40 mg PO DAILY Qty: 30 2RF omeprazole 40 mg capsule,delayed release(DR/EC) 40 mg PO DAILY Qty: 30 3RF clindamycin HCl 150 mg capsule 150 mg PO Q6H 7 Days Qty: 28 0RF Invega Trinza 546 mg/1.75 mL syringe 546 mg IM [id number] benztropine 0.5 mg tablet 0.5 mg PO BID <Addis Alonso PA-C - Last Filed: 11/29/24 04:03> Follow-up/Referrals: Grover,Jos Jung APRN [Primary Care Provider] - <Addis Alonso PA-C - Last Filed: 11/29/24 04:03>
[2024-11-29 00:10] LABS: Add Urine Microscopic? NO; Appearance Urine Clear (Clear); Glucose Urine UA Negative (Negative); Leukocyte Esterase Ur Negative LEU/UL (Negative); Nitrate Urine Negative (Negative); Specific Grav Ur 1.009 (1.001-1.035)
[2024-11-29 00:31] LABS: Cannabinoid Screen Urine Positive (Negative)
--- OUTSIDE RECORDS SUMMARY | 2024-11-29 00:31 | XMS_ITS | Referral Summary ---
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
--- OUTSIDE RECORDS SUMMARY | 2024-11-29 00:31 | XMS_ITS | Patient Health Record ---
Author Organization [facility] Address [address] [place] [address] Care Team Providers Care Escrow Representative Name Role Phone Jos Ness Primary Care Provider [phone] Rosalinda Harrison Unavailable [phone] Brionna Box Unavailable Marco Antonio Mercado Unavailable [phone] Vi Manuela Unavailable [phone] Arvin Gonzales Unavailable [phone] Jeryr Eduardo Unavailable [phone] Brenna Sutherland Unavailable [phone] Allergies Allergen (clinical drug ingredient) Drug/Non Drug Allergy documented on EMR Reaction Allergy Type Onset Date Status Penicillin Childhood Drug Allergy Active Results Component Value Reference Range Notes Urinalysis In-House, Routine Reviewed date:03/15/2024 02:54:42 PM Interpretation: Performing Lab: Notes/Report: Urine-Color yellow Appearance clear Leukocytes neg Nitrite, Urine neg Urobilinogen,Semi-Qn 0.2 Protein neg pH 6.5 Occult Blood neg Specific [place] 1.010 Ketones neg Bilirubin neg Glucose neg Chlamydia/Gonococcus/Mycopla sma genitalium, ROSEMARY, Urine Reviewed date:03/20/2024 02:47:33 PM Interpretation:Negative Performing Lab:[facility], [address] [place] [address], [place], Phone - [phone], Director - Martir Notes/Report: Mycoplasma genitalium ROSEMARY Negative Negative Chlamydia trachomatis, ROSEMARY Negative Negative Neisseria gonorrhoeae, ROSEMARY Negative Negative Herpes Simplex Virus Types 1 and 2 -specific Antibodies, IgG Reviewed date:03/20/2024 02:47:33 PM Interpretation:Negative Performing Lab:[facility], [address] [place] [address], Phone - [phone], Director - Martir Notes/Report: HSV 1 IgG, Type Spec Non [...] using the Gin Elecsys HSV-2 IgG assay. RPR w/reflex to TrepSure Reviewed date:03/20/2024 02:47:33 PM Interpretation:Negative Performing Lab:[facility], [address] [place] [address], Phone - [phone], Director - Martir Notes/Report: RPR Non Reactive [...] full CDC-recommended syphilis screening and diagnosis algorithm, [facility] offers test code [id number] RPR, Rfx Qn RPR/Confirm TP or [id number] T pallidum Screening [place]. Urine Culture, Routine* Reviewed date:03/20/2024 02:47:33 PM Interpretation:Normal Performing Lab:[address], Phone - [phone], Director - [facility] Notes/Report: Urine Culture, Routine Final report Result 1 No growth HIV Screen *HIV 1, 2 Ab, p24 Ag ([id number]) Reviewed date:03/20/2024 02:47:33 PM Interpretation:Negative Performing Lab:[address], Phone - [phone], Director - [facility] Notes/Report: HIV Ab/p24 Ag Screen Non Reactive Non Reactive HIV-1/HIV-2 antibodies and HIV-1 p24 antigen were NOT detected. There is no laboratory evidence of HIV infection. HIV Negative QuantiFERON-TB Gold Plus (18 2879) Reviewed date:01/24/2024 11:12:27 AM Interpretation: Performing Lab:[facility], [address] [facility], Phone - [phone], [facility] Notes/Report: QuantiFERON Incubation Incubation performed. [...] >10.00 QuantiFERON-TB Gold Plus (18 2879) Reviewed date:06/26/2024 08:29:46 AM Interpretation:Negative Performing Lab:[facility] [place], [address] [facility], [place], Phone - [phone], [facility] Notes/Report: QuantiFERON Incubation Incubation performed. [...] day; Duration: 30 days please send to [facility] Active Haloperidol 5 MG 1 tablet Orally Once a day; Duration: 30 days please send to [facility] Active Invega Trinza 819 MG/2.63ML as directed Intramuscular every 84 days due around Jan 10, Active traZODone HCl 100 MG 2 tablet at bedtime Orally at bedtime; Duration: 30 days please send to [facility] Active Haloperidol 5 mg TAKE 1 TABLET BY PRIMITIVO TH DAILY; Duration: 30 Active lamoTRIgine 25 MG 2 tablets for 50 mg Orally Once daily at night; Duration: 30 days please send to [facility] Active hydrOXYzine Pamoate 50 MG 2 capsules for 100 mg Orally Once a day; Duration: 30 days at night please send to [facility] Active hydrOXYzine Pamoate 50 mg TAKE 2 [...] 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 Stress is when someone feels tense, nervous, anxious, or can\t sleep at night because their mind is troubled A little bit In the past year have you sp ent more than 2 nights in a row in a shelter, fdc, senior living center, or juvenile correctional facility? 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 disorder (53156710) Insomnia due to mental disorder (F51.05) 02/03/20 24 Active confirmed Problem Alcohol use disorder (7601806408) Alcohol use disorder (F10.99) Active confirmed Problem Nightmares (346549271) Nightmares (F51.5) 02/03/20 24 Active confirmed Problem Methamphetamine abuse (059014875) Methamphetamine abuse (F15.10) Active confirmed Problem History of methamphetamine use (09920455939551085 ) Methamphetamine use (F15.10) Active confirmed Problem Physical examination (5050881) Routine physical examination (Z00.00) Active confirmed Problem Cocaine abuse (97983401) Cocaine use (F14.10) Active confirmed Problem Difficulty sleeping (358017269) Sleeping difficulty (G47.9) Active confirmed Problem Obesity (190424844) Obesity (BMI 30-39.9) (E66.9) Active confirmed Problem Tobacco use (537595408) Tobacco use disorder (F17.200) Active confirmed Problem Obesity (550465216) Obesity, unspecified classification, unspecified obesity type, unspecified whether serious comorbidity present (E66.9) Active confirmed Problem Cocaine dependence in remission (806110815) Cocaine use disorder, moderate, in early remission (F14.21) Active confirmed Problem Stimulant dependence (397576566) Methamphetamine use disorder, 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0 and Methamphetamine use F15.[address] [address] 01/19/2024 Arvin Gonzales Encounter for [facility] examination in adult Z00.00 ; Methamphetamine use disorder, severe F15.20 ; Nicotine dependence, unspecified, uncomplicated F17.200 ; Cocaine use disorder, moderate, in early remission F14.21 ; Deep inguinal pain, left R10.30 and Schizoaffective disorder, bipolar type F25.[address] [address] 02/02/2024 Marco Antonio Mercado Schizoaffective disorder, bipolar type F25.[address] [place] [address] 02/03/2024 Kyria Eduardo Schizoaffective disorder, bipolar type F25.0 ; Nightmares F51.5 ; Insomnia due to mental disorder F51.05 ; Methamphetamine use F15.10 and Tardive dyskinesia G24.[address] [place] [address] 02/21/2024 Rosalinda Harrison Schizoaffective disorder, bipolar type F25.0 ; Nightmares F51.5 ; Insomnia due to mental disorder F51.05 ; Methamphetamine use F15.10 and Tardive dyskinesia G24.[address] [address] 03/15/2024 Brenna Sutherland Symptoms of urinary tract infection R39.9 and Exposure to potential infection Z20.[address] [address] 03/15/2024 Brenna Sutherland Exposure to potentia l infection Z20.9 and Symptoms of urinary tract infection R39.[address] [place] [address] 03/29/2024 Brenna Sutherland Dysuria R30.[address] [address] 04/24/2024 Rosalinda Hunter Schizoaffective disorder, bipolar type F25.0 ; Nightmares F51.5 ; Insomnia due to mental disorder F51.05 ; Methamphetamine use F15.10 and Tardive dyskinesia G24.[address] [place] [address] 04/24/2024 Rosalinda Hunter Schizoaffective disorder, bipolar type F25.[address] [address] 05/18/2024 Rosalinda Hunter Schizoaffective disorder, bipolar type F25.0 ; Nightmares F51.5 ; Insomnia due to mental disorder F51.05 ; Methamphetamine use F15.10 and Tardive dyskinesia G24.[address] [address] 05/31/2024 Rosalinda Hunter Schizoaffective disorder, bipolar type F25.0 ; Nightmares F51.5 ; Insomnia due to mental disorder F51.05 ; Methamphetamine use F15.10 and Tardive dyskinesia G24.01 [facility] [address] [place] [address] 06/20/2024 Brenna Sutherland Adult general medica l exam Z00.00 [facility] [address] [place] [address] 06/27/2024 Rosalinda Hunter Schizoaffective disorder, bipolar type F25.0 ; Nightmares F51.5 ; Insomnia due to mental disorder F51.05 ; Methamphetamine use F15.10 and Tardive dyskinesia G24.[address] [place] [address] 07/24/2024 Rosalindarajiv HinojosaHunter Schizoaffective disorder, bipolar type F25.0 ; Nightmares F51.5 ; Insomnia due to mental disorder F51.05 ; Methamphetamine use F15.10 and Tardive dyskinesia G24.[address] [place] [address] 10/26/2024 Rosalindarajiv HinojosaHunter Schizoaffective disorder, bipolar type F25.0 ; Nightmares F51.5 ; Insomnia due to mental disorder F51.05 ; Methamphetamine use F15.10 and Tardive dyskinesia G24.01 [facility] [address] [address] 12/23/2023 Jos [facility] [address] [place] [address] 12/28/2023 [facility] [address] [place] [address] 01/19/2024 Arvin Gonzales [facility] [address] [address] 01/20/2024 Arvin Gonzales Sleeping difficulty G47.9 [facility] [address] [place] [address] 01/24/2024 Jos [facility] [address] [place] [address] 01/26/2024 [facility] [address] [place] [address] 01/28/2024 Kyria Eduardo [facility] [address] [place] [address] 01/28/2024 Jos Ness [facility] [address] [place] [address] 02/02/2024 Marco Antonio Mercado [facility] [address] [place] [address] 02/03/2024 Jerry Frenchanan [facility] [address] [place] [address] 02/03/2024 Zaidcharissateena FrenchEduardo [facility] [address] [place] [address] 02/11/2024 Jos Ness [facility] [address] [place] [address] 02/14/2024 Jos Ness Insomnia due to ment al disorder F51.05 [facility] [address] [place] [address] 03/08/2024 Rosalinda Harrison [address] [place] [address] 03/13/2024 Jos Ness [address] [place] [address] 03/20/2024 Brenna Sutherland [address] [place] [address] 04/11/2024 Rosalinda Harrison [address] [place] [address] 04/18/2024 Rosalinda Harrison Schizoaffective disorder, bipolar type F25.[address] [place] [address] 04/20/2024 Jos Ness [address] [place] [address] 04/25/2024 Rosalinda Harrison [address] [place] [address] 05/23/2024 Rosalinda Hinojosannan Insomnia due to ment al disorder F51.05 [facility] [address] [place] [address] 07/17/2024 Rosalinda Hunter [facility] [address] [facility] [place] [address] 11/08/2024 [address]iv H[address]Hunter[address] [place] [address] 11/16/2024 Rosalinda Hunter Nightmares F51.5 and Schizoaffective disorder, bipolar type F25.0 [facility] [address] [place] [address] 01/18/2024 [facility] Schizoaffective disorder, bipolar type F25.0 Assessments Encounter Date Diagnosis (ICD Code) Assessment Notes Treatment Notes Treatment Clinical Notes Section Notes 12/30/2023 Schizoaffective disorder, bipolar type (ICD-10 - F25.0) Today's visit: Patient with h/o schizoaffective disorder, substance use disorder, tardive dyskinesia, currently incarcerated with worsening irritability and racing thoughts (reports prevoius davide), and recent substance use. Confirmed with [facility] nurse that he is taking his his current medications, changing dose of Remeron and Lamictal based on what he is presently taking. Spoke with Casandra LOPES who confirms pt was at [facility] recently and received Invega Sustenna injection on [...] or be administered own oral medications per [facility] protocols. Provided informed consent with understanding of [...] appt over phone and is currently in [place], [place]. with h/o schizoaffective disorder, substance use [...] it appears to be for sleep, however [facility] staff report he is taking 30 mg [...] or be administered own oral medications per [facility] protocols. Provided informed consent with understanding of [...] Other he is appropria te for the [facility]. He is also able to self administer [...] May also contact the 24-hour crisis hotline ([facility]), refer to the closest emergency room or [...] May also contact the 24-hour crisis hotline ([facility]), refer to the closest emergency room or [...] May also contact the 24-hour crisis hotline ([facility]), refer to the closest emergency room or [...] May also contact the 24-hour crisis hotline ([facility]), refer to the closest emergency room or [...] May also contact the 24-hour crisis hotline ([facility]), refer to the closest emergency room or [...] May also contact the 24-hour crisis hotline ([facility]), refer to the closest emergency room or [...] May also contact the 24-hour crisis hotline ([facility]), refer to the closest emergency room or [...] Date MEDICARE PART A [address] [place] [address] [id number] Dominguez Hopper Self - patient is the insured 30/202 4 [facility] AARP Medicare [address] [address] [place] [address] [phone] [id number] Dominguez Hopper Self - patient is the insured 4 MEDICAID [address] [place] [address] [id number] Dominguez Hopper Self - patient is the insured 1 [employer] Medicare [address] [place] [address] [id number] Dominguez Hopper Self - patient is the insured 4 4 Medications Administered Medication Instructions Date of Administration Dosage Notes Invega Sustenna 08/03/2023 234 mg Invega Sustenna 12/01/2023 234 mg given at [facility] Invega Sustenna 12/30/2023 234 mg [facility] at [facility] Invega Trinza 09/24/2020 410 mg Pt nathan [...] well. Invega Trinza 02/02/2024 819 mg Lary SOW FARM BARN TECHNICIAN, Mary Freeman LPN 02/02/2024 04:18:36 PM CDT [...]
--- OUTSIDE RECORDS SUMMARY | 2024-11-29 00:31 | XMS_ITS | Continuity of Care Document ---
Author Organization [facility] Address [address] [facility] [place] [address] Phone Care Team Providers Care Radiology Director Name Role Phone Dano Kidd MD Unavailable Unavailable Advance Directives Directive Yes / No Effective Date File Name No Information Encounters Encounter Description Practice Location Reason(s) For Visit Diagnoses Date Provider Providers Copied on Encounter [facility], [address] [facility] [place], [id number], [place] tel:[phone] [facility] No Information [facility] Matson. [address] [facility] [place] [place], [id number], [place]. tel:[phone] Family History Family Member Type Diagnosis Age [...]
--- OUTSIDE RECORDS SUMMARY | 2024-11-29 00:31 | XMS_ITS | Continuity of Care Document ---
Author Organization [facility] Address [address] [place] [address] Phone Care Team Providers Care Weir Fisher Name Role Phone Corey RUBY, FACC, Marla Unavailable Unavailab le Procedures Procedure Date ELECTROCARDIOGRAM REPORT Advance Directives Directive Yes / No Effective Date File Name No Information Encounters Encounter Description Practice Location Reason(s) For Visit Diagnoses Date Provider Providers Copied on Encounter [facility], [address] [place] [address], [id number], tel:[phone] [facility] No Information Corey Gutiérrez. [address] [place] [address], [id number], . tel:[phone] Referring Provider: Marla Nicole, [address] [place] [address], [address]. tel:[phone] Family History Family Member Type Diagnosis Age [...]
--- OUTSIDE RECORDS SUMMARY | 2024-11-29 00:32 | XMS_ITS | Patient Health Record ---
Author Organization [facility] Address [address] [address] Care Team Providers Care Hat And Cap Drying Room Attendant Name Role Phone Thomas Billings Unavailable [phone] Reason For Referral No Information Plan Of Treatment No Information
--- OUTSIDE RECORDS SUMMARY | 2024-11-29 00:32 | XMS_ITS | Clinical Summary ---
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
--- OUTSIDE RECORDS SUMMARY | 2024-11-29 00:32 | XMS_ITS | Clinical Summary ---
Author Organization [facility] Address [address] [place] [address] Phone Care Team Providers Care Aircraft Pilot Name Role Phone Provider, None Primary Care [...] to complete this topic Insurance [facility]IC[facility] Care Teams Aircraft Pilot Relationship Specialty Start Date End Date Provider, None [place] PCP - General 10/25/19 Kong Rodriguez MD [address] [facility] [address] [place] [address] Consulting Physician Urology 05/12/24
[2024-11-29 00:45] LABS: Influenza A QL RT-PCR Negative (Negative); Influenza B QL RT-PCR Negative (Negative); RSV RNA, RT-PCR Negative (Negative); SARS-CoV-2 RNA PCR Negative (Negative)
[2024-11-29 00:46] LABS: Alanine Aminotransferase 20 U/L (6-50); Albumin Level 4.3 g/dL (3.5-5.1); Alkaline Phosphatase 94 U/L (38-126); Anion Gap 8 mmol/L (4-12); Aspartate Amino Transferase 32 U/L (17-59); Bilirubin,Total 0.5 mg/dL (0.2-1.3); Blood Urea Nitrogen 5 mg/dL (9-20); Calcium 9.2 mg/dL (8.4-10.2); Carbon Dioxide 23 mmol/L (22-30); Chloride 108 mmol/L (98-107); Estimated CRCL calculation 90 ml/min; Estimated Glomerular Filt Rate > 60; Glucose 94 mg/dL (65-110); Potassium 3.8 mmol/L (3.4-5.0); Sodium 139 mmol/L (137-145); Total Protein 7.7 g/dL (6.3-8.2)
[2024-11-29 00:47] LABS: Acetaminophen < 10 ug/mL (10-30); Hematocrit 41.3 % (42.0-52.0); Hemoglobin 13.6 g/dL (14.0-18.0); Immature Granulocyte Percent A 4.9 % (0-0.5); Lymphocytes Absolute Auto 1.96 K/mm3 (0.9-3.2); Mean Corpuscular HGB Conc 32.9 g/dl (32-36); Mean Corpuscular Hemoglobin 28.0 pg (26-34); Mean Corpuscular Volume 85.0 fl (80-100); Nucleated Red Blood Cells Absolute Auto 0.000 K/mm3 (0.0-0.012); Nucleated Red Blood Cells Perc 0.0 % (0.0-0.2); Platelet Count Result 322 k/mm3 (150-375); Red Blood Count 4.86 M/mm3 (4.6-6.20); Salicylate < 1.0 mg/dL (2-20); White Blood Count 9.2 K/mm3 (4.5-10.0)
--- NOTE | 2024-11-29 00:58 | PC.NURSE ---
pt wanted this rn to called his mom [phone] to inform her he is being treated at [facility].
[2024-11-29 01:22] LABS: Thyroid Stimulating Hormone 0.861 uIU/mL (0.465-4.680)
== END 2024-11-29 04:00 | disposition home or self-care (01) ==
PROVIDERS: Emergency Provider Physician Assistant; PCP Nurse Practitioner
DX: F15.10 Other stimulant abuse, uncomplicated (principal); F20.9 Schizophrenia, unspecified; F31.9 Bipolar disorder, unspecified; F17.210 Nicotine dependence, cigarettes, uncomplicated; Z79.899 Other long term (current) drug therapy
CPT/HCPCS: 36415; 80053; 80143; 80179; 80307; 81003; 82077; 84443; 85025; 87637; 99283

== ENCOUNTER 2024-12-18 18:28 | Emergency (ER) | payer MEDICARE, MEDICAID, SELFPAY ==
--- OUTSIDE RECORDS SUMMARY | 2017-02-16 06:20 | XMS_ITS | Continuity of Care Document ---
Author Organization [facility] Address [address] [facility] [place] [address] Phone Care Team Providers Care Licensed Embalmer Name Role Phone Dano Kidd MD Unavailable Unavailable Advance Directives Directive Yes / No Effective Date File Name No Information Encounters Encounter Description Practice Location Reason(s) For Visit Diagnoses Date Provider Providers Copied on Encounter [facility], [address] [facility] [place], [id number], [place] tel:[phone] [facility] No Information Bernabe Matson. [address] [facility] [place], [id number], [place]. tel:[phone] Family History Family Member Type Diagnosis Age At Onset No Information Payers Payer name Insurance type Covered constitution party ID Authoriza tion(s) No Information Social History Type Description Quantity Date Captured Comments Sex Male Smoking Status No Information Chief Complaint And Reason For Visit No Information Plan Of Treatment Date Type Action Status No Information History Of Present Illness Encounter Date Complaint History Of Prese nt Illness No Information Instructions Date Instruction Additional Infor mation No Information Assessments Type Assessment Date No Information
--- OUTSIDE RECORDS SUMMARY | 2024-10-15 19:00 | XMS_ITS | Continuity of Care Document ---
Author Organization [facility] Address [address] [place] [address] Phone Care Team Providers Care Java Jsf Developer Name Role Phone Corey RUBY, FACC, Marla Unavailable Unavailab le Procedures Procedure Date ELECTROCARDIOGRAM REPORT Advance Directives Directive Yes / No Effective Date File Name No Information Encounters Encounter Description Practice Location Reason(s) For Visit Diagnoses Date Provider Providers Copied on Encounter [facility], [address] [place] [address], [id number], tel:[phone] [facility] No Information Corey Gutiérrez. [address] [place] [address], [id number], . tel:[phone] Referring Provider: Marla Nicole, [address] [place] [address], [id number]. tel:[phone] Family History Family Member Type Diagnosis Age At Onset No Information Payers Payer name Insurance type Covered constitution party ID Authoriza tion(s) No Information Social History Type Description Quantity Date Captured Comments Sex Male Smoking Status No Information Chief Complaint And Reason For Visit No Information Reason For Referral Reason For Referral No Information History Of Present Illness Encounter Date Complaint History Of Prese nt Illness No Information Functional Status Date Functional Assessmen t No Information Instructions Date Instruction Additional Infor mation No Information Assessments Type Assessment Date No Information Patient Care Teams Name Effective Dates (start - stop) Status Members No Information
--- OUTSIDE RECORDS SUMMARY | 2024-12-12 05:00 | XMS_ITS ---
Author Organization [facility] Address [address] [place] [address] Care Team Providers Care Medical Staff Specialist Name Role Phone Jos Ness Primary Care Provider [phone] Rosalinda Harrison [phone] Allergies Allergen (clinical drug ingredient) Drug/Non Drug Allergy documented on EMR Reaction Allergy Type Onset Date Status Penicillin Childhood Drug Allergy Active REASON FOR VISIT [facility] Medications Medication SIG (Take, Route, Frequency, Duration) Notes Start Date End Date Status Prazosin HCl 2 MG 1 capsule at bedtime Orally Once a day; Duration: 30 days on cru Active Invega Trinza 819 MG/2.63ML as directed Intramuscular every 84 days Active hydrOXYzine Pamoate 25 MG 1-2 capsules Orally every 4 hours as needed for anxiety, agitation; Duration: 7 days on cru 12/12/2024 Active hydrOXYzine Pamoate 50 MG 2 capsules for 100 mg Orally Once a day; Duration: 30 days at night on cru Active Nicotine 21 MG/24HR 1 patch to skin. Transdermal Once a day, removing at bedtime on cru 12/12/2024 Active lamoTRIgine 25 MG 2 tablets for 50 mg Orally Once daily at night; Duration: 30 days on cru Active hydrOXYzine Pamoate 50 mg TAKE 2 CAPSULES BY MOUTH EVERY NIGHT; Duration: 30 Not-Taking Melatonin 5 MG 1 tablet in the even ing Orally Once a day Active Melatonin 5 MG 1 tablet at bedtime as needed Orally Once a day; Duration: 30 days on cru 12/12/2024 Active Haloperidol 5 mg TAKE 1 TABLET BY PRIMITIVO TH DAILY; Duration: 30 Active Austedo XR 24 MG 1 tablet Orally Once a day; Duration: 30 days on cru Active Nicotine 21 MG/24HR 1 patch to skin Transdermal Once a day Active Multi Vitamin - 1 tablet Orally Once a day; Duration: 30 days on u 12/12/2024 Active Lybalvi 5-10 MG 1 tablet Orally Once a day; Duration: 14 days on u 12/12/2024 Active Topiramate 25 MG 1 tablet Orally twic e a day Active Social History Tobacco Use: Social History [...] 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 Stress is when someone feels tense, nervous, anxious, or can\t sleep at night because their mind is troubled A little bit In the past year have you sp ent more than 2 nights in a row in a fpc, penitentiary, senior living center, or juvenile correctional facility? No Are you a refugee? No What country are you from? [place] Do you feel physically and e motionally safe where you currently live? Yes In the past year, have you b een afraid of your partner or ex-partner? No PRAPARE Score: 6 Tobacco Control (Standard) Question Answer Notes Tobacco use: Current smoker Vital Signs Weight 206.6 lbs 12/12/2024 BMI 32.35 kg/m2 12/12/2024 Blood pressure systolic 120 mm Hg 12/13/19 25 Blood pressure diastolic 68 mm Hg 025 Heart Rate 73 /min 12/12/2024 Oximetry 98 % 12/12/2024 Temperature 98.2 degrees Fahrenheit 12/13/19 25 Respiratory Rate 16 /min 12/12/2024 Height 67 in 12/12/2024 Encounters Encounter Location Date Provider Diagnosis [facility] [address] [place] [address] 12/12/2024 Rosalinda Harrison Physical exam Z00.00 ; Schizoaffective disorder, bipolar type F25.0 ; Nightmares F51.5 ; 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 (NOTE: Ibuprofen and acetaminophen may be given together, but alternating is recommended for continuous pain relief. Guaifenesin 400 mg, 1 tablet by mouth every four hours as needed for cough and chest congestion (take with large glass of water). Loratadine 10 mg, 1 tablet by mouth daily as needed for allergies, watery itchy eyes, or sinus drainage. Throat Lozenges, up to 4 tablets by mouth every three to four hours as needed for sore throat. Antacid tablets, 1-2 tablets by mouth every one to two hours as needed for indigestion or heart burn. If the client prefers liquid, could use: Liquid Antacid : 1 ounce by mouth up to four times daily as needed for indigestion or heartburn Omeprazole 20mg, 1 capsule by mouth once daily for 14 days for frequent heartburn (frequent heartburn is more than 2 episodes per week). Do not exceed 14 days. Do not give to client already taking a proton-pump inhibitor: esomeprazole (Nexium), lansoprazole (Prevacid), pantoprazole (Protonix), rabeprazole (Aciphex), dexlansoprazole (Dexilant) Zofran ODT disintegrating (under the tongue) 4 mg, 1-2 tablets every 8 hours as needed for nausea/vomiting. Milk of Magnesia (MOM): 1 ounce (30 milliliters) by mouth every day as needed for constipation. OR Miralax: Stir and fully dissolve 17 grams (1 packet or 1 capful to measured line) in any 4 to 8 ounces of beverage then drink once daily for constipation. Do not use for more than 7 days. OR Docusate 100 mg, 1 capsule twice daily as needed for constipation Hydrocortisone 1% Cream, apply topically (to the skin) to the affected area up to three times daily as needed for itching or inflammation (avoid eyes and genitals). 2% Antifungal Cream, apply topically (to the skin) as directed as needed to affected areas for athlete's foot or jock itch. Triple Antibiotic Ointment, apply topically (to the skin) up to three times daily as needed for minor cuts and scrapes. Carmex or Chapstick, apply topically (to the skin) as needed for chapped lips and skin. Orajel, apply to affected areas as needed for mouth or tooth pain. Lubricating Eye Drops, instill 1-2 drops to the affected eye(s) as needed for dry/irritated eye(s). Hemorrhoid medications, apply to affected area according to directions as needed for hemorrhoid discomfort and itch. Nix (Permethrin 1%) cream 2 ounces, apply topically (to the skin) as directed as needed for head lice. Sunscreen 30 SPF, Apply to exposed skin prior to exposure to sun. The following PRN medications must be approved by nursing staff before self-administratio n by patients: Diphenhydramine 25 mg, 2 tablets by mouth every 4 hours as needed for allergic reaction or itchy rash. Caution: Do not use hydroxyzine within 4 hours of diphenhydramine and vice versa. Loperamide 2 mg capsules, may give two capsules by mouth for the initial dose, followed by one capsule up to 3 times a day as needed for diarrhea. Acetaminophen 500 mg, 1 - 2 tablets by mouth every six hours as needed for pain. (NOTE: Ibuprofen and acetaminophen may be given together, but alternating is recommended for continuous pain relief). Oxygen-May administer oxygen 2L/min via nasal cannula if O2 saturation is less than 92%, AND client complains of shortness of breath. Target O2 saturation is 94-98%. Caution: Remember too much oxygen can be detrimental to a client with COPD. Oxygen is a drug and should be delivered by trained staff only. Nurses may remove superficial splinters and sutures from skin lacerations. May apply gauze or bandages to any weeping wounds. Contact nursing if there is pus, a foul odor, increased pain/redness/swell ing, or if soaking through bandages. 12/12/2024 Schizoaffective disorder, bipolar type (ICD-10 - F25.0) Reports has not been feeling stable. Stop Haldol- start Lybalvi. Continue Invega order at this time. Client would like to look to [facility] for [facility], will assess if appropriate at future appt, utilize Lybalvi at this time. Reports poor sleep with trazodone, take Lybalvi at night. Reports anxiety- will look to add buspirone if needed at appt. Take as prescribed. Reviewed Invega, Lybalvi purpose (mood stability), benefits, and risks - low blood pressure, metabolic syndrome with high cholesterol or high blood sugars, change in cardiac conduction, nausea, vomiting, temporary or permanent movement disorders, and akathisia. 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 My TD is doing really well right now. May look to D/C in future appt if client continues with stability as he reports not wanting to stay on this medication. 12/12/2024 Other Discussed r/b/se of treatment regimens. Patient on crisis unit where staff have access to this report. Plan Of Treatment Medication Medication Name Sig Start Date Stop Date Notes Prazosin HCl 2 MG 1 capsule at bedtime Orally Once a day; Duration: 30 days on cru Invega Trinza 819 MG/2.63ML as directed Intramuscular every 84 days Topiramate 25 MG 1 tablet Orally Twic e daily; Duration: 30 [facility] Haloperidol 5 MG 1 tablet Orally Once a day; Duration: 30 days please send to [facility] hydrOXYzine Pamoate 25 MG 1-2 capsules Orally every 4 hours as needed for anxiety, agitation; Duration: 7 days 12/12/2024 on u hydrOXYzine Pamoate 50 MG 2 capsules for 100 mg Orally Once a day; Duration: 30 days on cru traZODone HCl 100 MG 2 tablet at bedtime Orally at bedtime; Duration: 30 [facility] Nicotine 21 MG/24HR 1 patch to skin. Transdermal Once a day, removing at bedtime 12/12/2024 on [facility] lamoTRIgine 25 MG 2 tablets for 50 mg Orally Once daily at night; Duration: 30 days on u Melatonin 5 MG 1 tablet at bedtime as needed Orally Once a day; Duration: 30 days 12/12/2024 on u buPROPion HCl ER (XL) 150 MG 1 tablet in the morning Orally Once a day Austedo XR 24 MG 1 tablet Orally Once a day; Duration: 30 days on u Multi Vitamin - 1 tablet Orally Once a day; Duration: 30 days 12/12/2024 on u Lybalvi 5-10 MG 1 tablet Orally Once a day; Duration: 14 days 12/12/2024 on cru Treatment Notes Assessment Notes Physical exam Admit to the Mental Health/Crisis Residential Unit and initiate standing/protocol orders: The following PRN medications may be self-administered by patients under the supervision of approved staff or administered by nursing staff: Ibuprofen 200mg, 2-4 tablets by mouth (with food) every 6 hours as needed for pain (unless on lithium). (NOTE: Ibuprofen and acetaminophen may be given together, but alternating is recommended for continuous pain relief. Guaifenesin 400 mg, 1 tablet by mouth every four hours as needed for cough and chest congestion (take with large glass of water). Loratadine 10 mg, 1 tablet by mouth daily as needed for allergies, watery itchy eyes, or sinus drainage. Throat Lozenges, up to 4 tablets by mouth every three to four hours as needed for sore throat. Antacid tablets, 1-2 tablets by mouth every one to two hours as needed for indigestion or heart burn. If the client prefers liquid, could use: Liquid Antacid : 1 ounce by mouth up to four times daily as needed for indigestion or heartburn Omeprazole 20mg, 1 capsule by mouth once daily for 14 days for frequent heartburn (frequent heartburn is more than 2 episodes per week). Do not exceed 14 days. Do not give to client already taking a proton-pump inhibitor: esomeprazole (Nexium), lansoprazole (Prevacid), pantoprazole (Protonix), rabeprazole (Aciphex), dexlansoprazole (Dexilant) Zofran ODT disintegrating (under the tongue) 4 mg, 1-2 tablets every 8 hours as needed for nausea/vomiting. Milk of Magnesia (MOM): 1 ounce (30 milliliters) by mouth every day as needed for constipation. OR Miralax: Stir and fully dissolve 17 grams (1 packet or 1 capful to measured line) in any 4 to 8 ounces of beverage then drink once daily for constipation. Do not use for more than 7 days. OR Docusate 100 mg, 1 capsule twice daily as needed for constipation Hydrocortisone 1% Cream, apply topically (to the skin) to the affected area up to three times daily as needed for itching or inflammation (avoid eyes and genitals). 2% Antifungal Cream, apply topically (to the skin) as directed as needed to affected areas for athlete's foot or jock itch. Triple Antibiotic Ointment, apply topically (to the skin) up to three times daily as needed for minor cuts and scrapes. Carmex or Chapstick, apply topically (to the skin) as needed for chapped lips and skin. Orajel, apply to affected areas as needed for mouth or tooth pain. Lubricating Eye Drops, instill 1-2 drops to the affected eye(s) as needed for dry/irritated eye(s). Hemorrhoid medications, apply to affected area according to directions as needed for hemorrhoid discomfort and itch. Nix (Permethrin 1%) cream 2 ounces, apply topically (to the skin) as directed as needed for head lice. Sunscreen 30 SPF, Apply to exposed skin prior to exposure to sun. The following PRN medications must be approved by nursing staff before self-administration by patients: Diphenhydramine 25 mg, 2 tablets by mouth every 4 hours as needed for allergic reaction or itchy rash. Caution: Do not use hydroxyzine within 4 hours of diphenhydramine and vice versa. Loperamide 2 mg capsules, may give two capsules by mouth for the initial dose, followed by one capsule up to 3 times a day as needed for diarrhea. Acetaminophen 500 mg, 1 - 2 tablets by mouth every six hours as needed for pain. (NOTE: Ibuprofen and acetaminophen may be given together, but alternating is recommended for continuous pain relief). Oxygen-May administer oxygen 2L/min via nasal cannula if O2 saturation is less than 92%, AND client complains of shortness of breath. Target O2 saturation is 94-98%. Caution: Remember too much oxygen can be detrimental to a client with COPD. Oxygen is a drug and should be delivered by trained staff only. Nurses may remove superficial splinters and sutures from skin lacerations. May apply gauze or bandages to any weeping wounds. Contact nursing if there is pus, a foul odor, increased pain/redness/swelling, or if soaking through bandages. Schizoaffective disorder, bipolar type Reports has not been feeling stable. Stop Haldol- start Lybalvi. Continue Invega order at this time. Client would like to look to [facility] for [facility], will assess if appropriate at future appt, utilize Lybalvi at this time. Reports poor sleep with trazodone, take Lybalvi at night. Reports anxiety- will look to add buspirone if needed at appt. Take as prescribed. Reviewed Invega, Lybalvi purpose (mood stability), benefits, and risks - low blood pressure, metabolic syndrome with high cholesterol or high blood sugars, change in cardiac conduction, nausea, vomiting, temporary or permanent movement disorders, and akathisia. Tardive dyskinesia States this is working well at this time, denies SE. My TD is doing really well right now. May look to D/C in future appt if client continues with stability as he reports not wanting to stay on this medication. Other Discussed r/b/se of treatment regimens. Patient on crisis unit where staff have access to this report. Future Test Test Name Order Date CBC With Differential/Platelet* 12/13/19 CMP 14 Comprehensive Metabolic Panel* QuantiFERON-TB Gold Plus ([id number]) 2024 Next Appt Details Follow Up: 1 Week, Reason: P sych F/U in-office Provider Name:Rosalinda horowitz, 12/19/2024 01:20:00 PM, [address], [place], [address], Progress Notes * Gume ANGELESwDOB: 2 (44 yo M)Acc No.[id number]:12/12/2024 UNLOCKED PROGRESS NOTE Patient: Dominguez MAX Provider: Petra Harrison, MSN, TURKEY PICKER, KIDS ACTIVITIES COACH-C :1980 A ge:44 Y S ex:Male Date:12/12/2024 Address:[facility] [address], [place] [facility] Pcp:Jos Ness 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 CRUM[facility]. * HPI: I nterim History: Emergency room visit Y es. W as hospitalized Y es.? D epression Screening: PHQ-9 L ittle interest or pleasure in doing things S everal days, F eeling down, depressed, or hopeless S everal days, T rouble falling or staying asleep, or sleeping too much S everal days, F eeling tired or having little energy S everal days, P oor appetite or overeating S everal days, F eeling bad about yourself or that you are a failure, or have let yourself or your family down S everal days, T rouble concentrating on things, such as reading the newspaper or watching television N early every day,?Moving or speaking so slowly that other people could have noticed; or the opposite, being so fidgety or restless that you have been moving around a lot more than usual N ot at all, T houghts that you would be better off or of hurting yourself in some way N ot at all, T otal Score 9 , I nterpretation M ild Depression. I ntervention D epression Screening Findings P ositive, F ollow-Up for Depression P isidoro is admitted to a [facility] unit where their mental health is monitored - unit nursing staff have access to this encounter note. S creening: [place] Suicide Severity Rating Scale (LF) D o you want to initiate with S creener form, 1 . Wish to be : Have you wished you were or wished you could go to sleep and not wake up? N o, 2 . Suicidal Thoughts: Have you actually had any thoughts of killing yourself? N o, 6 . Suicide Behavior Question: Have you ever done anything,started to do anything, or prepared to end your life? N o, I nterpretation: L ow Risk. P re[facility] Wellness follow-up: . C SSRS Interpretation and Follow Up Plan: CSSRS Interpretation and Follow Up Plan C SSRS Screen documented using SF Y es, R isk Disposition from SF L ow - No Follow Up Plan Required, F ollow Up Plan N o Follow Up Plan required at this time., T imeframe of Screening T shelley.? * Medical History: S chizoaffective disorder, Marijuana use disorder. * Surgical History: H ernia repair , Hernia repair on left and right side . * Hospitalization/Major Diagno stic Procedure: [facility], [facility] 05/27/2021. * Family History: F ather: , CHF, heart attack. M other: alive, Heart trouble . 4 brother(s) - healthy. . Reports schizophrenia runs in the family on both sides. * Social History: P rimary Social History: L iving Arrangement L iving Arrangement: P ublic Housing [place], I s this a supportive environment? Y es. A lcohol Use A lcohol Use Frequency: M onthly or less. I llicit Substance Usage I llicit Substance Usage: Y es, S ubstance Used: C ocaine,Methamphetamine Reports sobriety. E mployment Status E mployment Status: O n Disability. Single Question Alcohol Screening H ow may times in the past year have you had (4 for women, or 5 for men) or more drinks in a day? 0 . S ocial Determinants: Petra CROOK D ate Completed/Updated: 1 06/18/2023, W hat is your current housing situation? I have housing, A re you worried about losing your housing? N o, W hat is the highest level of school that you have finished? H igh school diploma or GED, W hat is your current work situation? 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 Check all that apply I do not have problems meeting my needs, H as lack of transportation kept you from medical appointments, meetings, work or from getting things needed for daily living? N o, H ow often do you see or talk to people that you care about and feel close to? (For example: talking to friends on the phone, visiting friends or family, going to buddhism or club meetings) 3 to 5 times a week, H ow stressed are you? Stress is when someone feels tense, nervous, anxious, or can\t sleep at night because their mind is troubled A little bit, I n the past year have you spent more than 2 nights in a row in a fpc, penitentiary, senior living center, or juvenile correctional facility? N o, A re you a refugee? N o, W hat country are you from[place], D o you feel physically and emotionally safe where you currently live? Y es, I n the past year, have you been afraid of your partner or ex-partner? N o, P ARMAAN Score: 6 . T obacco Use: T obacco Control (Standard) T obacco use: C urrent smoker. M iscellaneous: M ethod of learning P referred method of learning: D iscussion. * Medications: T aking Topiramate 25 MG Tablet 1 tablet Orally twice a day , Taking Nicotine 21 MG/24HR Patch 24 Hour 1 patch to skin Transdermal Once a day , Taking Melatonin 5 MG Tablet 1 tablet in the evening Orally Once a day , Taking buPROPion HCl ER (XL) 150 MG Tablet Extended Release 24 Hour 1 tablet in the morning Orally Once a day , Taking Haloperidol 5 mg Tablet TAKE 1 TABLET BY MOUTH DAILY , Taking Austedo XR 24 MG Tablet Extended Release 24 Hour 1 tablet Orally Once a day , Notes to Pharmacist: [facility], Taking lamoTRIgine 25 MG Tablet 2 tablets for 50 mg Orally Once daily at night , Notes to Pharmacist: [facility], Taking hydrOXYzine Pamoate 50 MG Capsule 2 capsules for 100 mg Orally Once a day at night, Notes to Pharmacist: [facility], Taking traZODone HCl 100 MG Tablet 2 tablet at bedtime Orally at bedtime , Notes to Pharmacist: [facility], Taking Invega Trinza 819 MG/2.63ML Suspension Prefilled Syringe as directed Intramuscular every 84 days , Notes to Pharmacist: due around Jan 10, thanks, Not-Taking Haloperidol 5 MG Tablet 1 tablet Orally Once a day , Notes to Pharmacist: please send to [facility], Not-Taking hydrOXYzine Pamoate 50 mg Capsule TAKE 2 CAPSULES BY MOUTH EVERY NIGHT , Medication List reviewed and reconciled with the patient * Allergies: P enicillin: Childhood. Objective: * Vitals: I nitials: TT, Wt:206.6, Ht: 67, BMI:32.35, BP:120/68, HR:73, Oxygen sat %:98, Temp:98.2, RR:16. Assessment: * Assessment: 1. P hysical exam - Z00.00 (Primary) 2 . S chizoaffective disorder, bipolar type - F25.0 3 . N ightmares - F51.5 4 . I nsomnia due to mental disorder - F51.05 5 . T ardive dyskinesia - G24.01 Plan: * Treatment: Value Reference Range B AC 0.000 ?LAB: QuantiFERON-TB Gold Plus ([id number]) (Ordered for 12/12/2024) (Collection Date & Time - 12/12/2024) ?LAB: CMP 14 Comprehensive Metabolic Panel* (Ordered for 12/12/2024) (Collection Date & Time - 12/12/2024) ?LAB: CBC With Differential/Platelet* (Ordered for 12/12/2024) (Collection Date & Time - 12/12/2024) ?LAB: 14 Panel Urine Drug Screen (Ordered for 12/12/2024) (Collection Date & Time - 12/12/2024)* Value Reference Range T HC neg * C OC neg * M OP (OPI) neg * A MP neg * M ET neg * B AR neg * B ZO neg * M DMA neg * M TD neg * O XY neg * P CP neg * B UP neg * T CA neg * F TY neg Notes: Admit to the Mental Health/Crisis Residential Unit and initiate standing/protocol orders: The following PRN medications may be self-administered by patients under the supervision of approved staff or administered by nursing staff: * Ibuprofen 200mg, 2-4 tablets by mouth (with food) every 6 hours as needed for pain (unless on lithium). (NOTE: Ibuprofen and acetaminophen may be given together, but alternating is recommended for continuous pain relief. * Guaifenesin 400 mg, 1 tablet by mouth every four hours as needed for cough and chest congestion (take with large glass of water). * Loratadine 10 mg, 1 tablet by mouth daily as needed for allergies, watery itchy eyes, or sinus drainage. * Throat Lozenges, up to 4 tablets by mouth every three to four hours as needed for sore throat. * Antacid tablets, 1-2 tablets by mouth every one to two hours as needed for indigestion or heart burn. If the client prefers liquid, could use: Liquid Antacid : 1 ounce by mouth up to four times dailyas needed for indigestion or heartburn * Omeprazole 20mg, 1 capsule by mouth once daily for 14 days for frequent heartburn (frequent heartburn is more than 2 episodes per week). Do not exceed 14 days. Do not give to client already taking a proton-pump inhibitor: esomeprazole (Nexium), lansoprazole (Prevacid), pantoprazole (Protonix), rabep razole (Aciphex), dexlansoprazole (Dexilant) * Zofran ODT disintegrating (under the tongue) 4 mg, 1-2 tablets every 8 hours as needed for nausea/vomiting. * Milk of Magnesia (MOM): 1 ounce (30 milliliters) by mouth every day as needed for constipation.ORMiralax: Stir and fully dissolve 17 grams (1 packet or 1 capful to measured line) in any 4 to 8 ounces of beverage then drink once daily for constipation. Do not use for more than 7 days.ORDocusate 100 mg, 1 capsule twice daily as needed for constipation * Hydrocortisone 1% Cream, apply topically (to the skin) to the affected area up to three times dailyas needed for itching or inflammation (avoid eyes and genitals). * 2% Antifungal Cream, apply topically (to the skin) as directed as needed to affected areas for athlete's foot or jock itch. * Triple Antibiotic Ointment, apply topically (to the skin) up to three times daily as needed for minor cuts and scrapes. * Carmex or Chapstick, apply topically (to the skin) as needed for chapped lips and skin. * Orajel, apply to affected areas as needed for mouth or tooth pain. * Lubricating Eye Drops, instill 1-2 drops to the affected eye(s) as needed for dry/irritated eye(s). * Hemorrhoid medications, apply to affected area according to directions as needed for hemorrhoid discomfort and itch. * Nix (Permethrin 1%) cream 2 ounces, apply topically (to the skin) as directed as needed for head lice. * Sunscreen 30 SPF, Apply to exposed skin prior to exposure to sun. The following PRN medications must be approved by nursing staff before self- administration by patients: * Diphenhydramine 25 mg, 2 tablets by mouth every 4 hours as needed for allergic reaction or itchy rash.Caution: Do not use hydroxyzine within 4 hours of diphenhydramine and vice versa. * Loperamide 2 mg capsules, may give two capsules by mouth for the initial dose, followed by one capsule up to 3 times a day as needed for diarrhea. * Acetaminophen 500 mg, 1 - 2 tablets by mouth every six hours as needed for pain. (NOTE: Ibuprofen and acetaminophen may be given together, but alternating is recommended for continuous pain relief). * Oxygen-May administer oxygen 2L/min via nasal cannula if O2 saturation is less than 92%, AND clientcomplains of shortness of breath. Target O2 saturation is 94-98%.Caution: Remember too much oxygen can be detrimental to a client with COPD. Oxygen is a drug and should be delivered by trained staff only. Nurses may remove superficial splinters and sutures from skin lacerations. May apply gauze or bandages to any weeping wounds. Contact nursing if there is pus, a foul odor, increased pain/redness/swelling, or if soaking through bandages. ??2.?Schizoaffective disorder, bipolar type? Refill lamoTRIgine Tablet, 25 MG, 2 tablets for 50 mg, Orally, Once daily at night, 30 days, 30, Refills 0, Notes to Pharmacist: on cru;?Continue Invega Trinza Suspension Prefilled Syringe, 819 MG/2.63ML, as directed, Intramuscular, every 84 days, 2.63, Refills 0;?Stop Topiramate Tablet, 25 MG, 1 tablet, Orally, Twice daily, 30 days, 60, Notes to Pharmacist: please send to [facility];?Start Lybalvi Tablet, 5-10 MG, 1 tablet, Orally, Once a day, 14 days, 14 Tablet, Refills 0,Notes to Pharmacist: on cru;?Stop buPROPion HCl ER (XL) Tablet Extended Release 24 Hour, 150 MG, 1 tablet in the morning, Orally, Once a day.?? Notes:Reports has not been feeling stable. Stop Haldol- start Lybalvi. Continue Invega order at this time. Client would like to look to [facility] for [facility], will assess if appropriate at future appt, utilize Lybalvi at this time. Reports poor sleep with trazodone, take Lybalvi at night. Reports anxiety- willlook to add buspirone if needed at appt. Take as prescribed. Reviewed Invega, Lybalvi purpose (mood stability), benefits, and risks - low blood pressure, metabolic syndrome with high cholesterol or high blood sugars, change in cardiac conduction, nausea, vomiting, temporary or permanent movement disorders, and akathisia. ??3.?Nightmares? Refill Prazosin HCl Capsule, 2 MG, 1 capsule at bedtime, Orally, Once a day, 30 days, 30, Refills 0, Notes to Pharmacist: on cru.??4.?Insomnia due to mental disorder? Refill hydrOXYzine Pamoate Capsule, 50 MG, 2 capsules for 100 mg, Orally, Once a day at night, 30 days, 60, Refills 0, Notes to Pharmacist: on cru;?Stop traZODone HCl Tablet, 100 MG, 2 tablet atbedtime, Orally, at bedtime, 30 days, 60, Notes to Pharmacist: [facility];?Stop Haloperidol Tablet, 5 MG, 1 tablet, Orally, Once a day, 30 days, 30, Notes to Pharmacist: [facility] to [facility].??5.?Tardive dyskinesia? Refill Austedo XR Tablet Extended Release 24 Hour, 24 MG, 1 tablet, Orally, Once a day, 30 days, 30, Refills 0, Notes to Pharmacist: on cru.?? Notes: States this is working well at this time, denies SE. My TD is doing really well right now. May look to D/C in future appt if client continues with stability as he reports not wanting to stayon this medication. ??6.?Others? Notes: Discussed r/b/se of treatment regimens. Patient on crisis unit where staff have access to this report. ?? * Recommended Wellness and Pre vention Guidelines: * S tatus A lert L ast Done N ext Due A ction Taken N ONCOMPLIANT A lcohol use screening - 0 12/12/2024 - - N ONCOMPLIANT A llergy List Verification - 0 12/12/2024 - - N ONCOMPLIANT C holesterol control (genl pop) 0 08/19/2023 0 12/12/2024 - - * Preventive Medicine: Counseling: S MOKING: P atient counselled on the dangers of tobacco use and urged to quit. . . * Follow Up: 1 Week (Reason: Psych F/U in-office) * * Electronic signature of Conner Harrison , [phone] on 12/18/2024 at 08:28 PM CDT Sign off status: Pending * Provider: Petra Harrison, MSN, [employer], KIDS ACTIVITIES COACH-C Date: 0 12/12/2024 Generated for Gisela branch/Vanita/Flexitting on: 0 12/18/2024 08:28 PM CDT History and Physical Notes * HPI (History of Present Illness) Category Sub-Category Detail Notes Category Not es Interim History Was hospitalized Yes Emergency room visit Yes Depression Screening PHQ-9 Little inte rest or pleasure in doing things: Several days Feeling down, depressed, or hopeless: Se veral days Trouble falling or staying asleep, or sl eeping too much: Several days Feeling tired or having little energy: S everal days Poor appetite or overeating: Several day s Feeling bad about yourself o r that you are a failure, or have let yourself or your family down: Several days Trouble concentrating on thi ngs, such as reading the newspaper or watching television: Nearly every day Moving or speaking so slowly that other people could have noticed; or the opposite, being so fidgety or restless that you have been moving around a lot more than usual: Not at all Thoughts that you would be b kristopher off or of hurting yourself in some way: Not at all Total Score: 9 Interpretation: Mild Depression Intervention Depression Screening Findings: P ositive Follow-Up for Depression: Carlos babcock is admitted to a [facility] unit where their mental health is monitored - unit nursing staff have access to this encounter note Screening [place] Suicide Sev erity Rating Scale (LF) Do you want to initiate with: Screener form 1. Wish to be : Have you wished you were or wished you could go to sleep and not wake up?: No 2. Suicidal Thoughts: Have you actually had any thoughts of killing yourself?: No 6. Suicide Behavior Question: Have you ever done anything,started to do anything, or prepared to end your life?: No Interpretation:: Low Risk Preventative Health and Wellness follow-up . CSSRS Interpretation and Follow Up Plan CSSRS Interpretation and Follow Up Plan CSSRS Screen documented using SF: Yes Risk Disposition from SF: Low - No Follo w Up Plan Required Follow Up Plan: No Follow Up Plan requir ed at this time. Timeframe of Screening: Today
--- NOTE | ~2024-12-18 | XR_ITS ---
EXAMINATION: XR chest 2V DATE: 12/18/2024 18:47 INDICATION: Chest pain TECHNIQUE: PA and lateral views of the chest were obtained. COMPARISON: Chest radiograph dated 03/15/[address] dated 09/09/2020 FINDINGS: The lungs are clear with no focal airspace opacities, pulmonary edema, pleural effusion or pneumothorax. The cardiomediastinal silhouette is normal. Mild thoracic spondylosis. A few old anterolateral left rib fractures. IMPRESSION: 1. No acute cardiopulmonary disease. Reviewed, dictated and finalized at location A.
--- NOTE | 2024-12-18 18:33 | ECG_ITS ---
Test Date: 2024-12-18 18:43:27 Measurements Intervals [place] Rate: 92 P: 61 GA: 138 QRS: 21 QRSD: 85 T: 31 QT: 362 QTc: 450 Interpretive Statements SINUS RHYTHM NONSPECIFIC ST ELEVATION IN ANTERIOR LEADS BASELINE ARTIFACT- I, II, III, AVR, AVL, AVF, V1 BORDERLINE ECG No previous ECG available for comparison Electronically Signed On 12-18-2024 19:54:17 CDT by Ja Moreno D.O.
[2024-12-18 18:35] VITALS: BP 133/89; PULSE 89; RESP 16; TEMP 36.9; O2SAT 99
[2024-12-18 18:53] LABS: Hematocrit 42.3 % (42.0-52.0); Hemoglobin 13.8 g/dL (14.0-18.0); Immature Granulocyte Percent A 0.3 % (0-0.5); Lymphocytes Absolute Auto 2.50 K/mm3 (0.9-3.2); Mean Corpuscular HGB Conc 32.6 g/dl (32-36); Mean Corpuscular Hemoglobin 27.8 pg (26-34); Mean Corpuscular Volume 85.3 fl (80-100); Nucleated Red Blood Cells Absolute Auto 0.000 K/mm3 (0.0-0.012); Nucleated Red Blood Cells Perc 0.0 % (0.0-0.2); Platelet Count Result 329 k/mm3 (150-375); Red Blood Count 4.96 M/mm3 (4.6-6.20); White Blood Count 10.8 K/mm3 (4.5-10.0)
[2024-12-18 19:03] LABS: INR 0.9; Prothrombin Time 12.8 Seconds (11.1-14.7)
[2024-12-18 19:04] LABS: Partial Thromboplastin Time 28.3 Seconds (22.3-36.8)
[2024-12-18 19:08] LABS: Alanine Aminotransferase 67 U/L (6-50); Albumin Level 4.3 g/dL (3.5-5.1); Alkaline Phosphatase 100 U/L (38-126); Anion Gap 8 mmol/L (4-12); Aspartate Amino Transferase 206 U/L (17-59); Bilirubin,Total 0.4 mg/dL (0.2-1.3); Blood Urea Nitrogen 6 mg/dL (9-20); Calcium 9.3 mg/dL (8.4-10.2); Carbon Dioxide 27 mmol/L (22-30); Chloride 101 mmol/L (98-107); Estimated CRCL calculation 117 ml/min; Estimated Glomerular Filt Rate > 60; Glucose 123 mg/dL (65-110); Lipase 19 U/L (23-300); Potassium 3.7 mmol/L (3.4-5.0); Sodium 136 mmol/L (137-145); Total Protein 8.0 g/dL (6.3-8.2)
[2024-12-18 19:20] LABS: Troponin I < 0.012 ng/mL (0.000-0.034)
[2024-12-18 19:27] VITALS: PULSE 82
[2024-12-18] MEDS: KETOROLAC 15 MG/ML VIAL (*BKC) IV PUSH (19:35)
--- NOTE | 2024-12-18 20:28 | ED.GENADULT ---
HPI - General Adult General Chief complaint: Shortness of Breath/Dyspnea Stated complaint: fall 4ft land on back, intermit, CP/SOB Time Seen by Provider: 12/18/24 19:03 History of Present Illness HPI narrative: Patient is a 44-year-old male who presents to the emergency department this evening complaining of chest wall pain for the past few days. Patient states that he fell onto his chest a few days ago approximately 3-4 feet and has been having some chest wall pain his shortness of breath since then. Complaining of some knee pain as well. Patient has been ambulating without any difficulty since the fall. Denies any additional symptoms or concerns at this time. Related Data Home Medications ?Medication ?Instructions ?Recorded ?Confirmed ?Last Taken ?Type divalproex 500 mg tablet,delayed 500 mg PO BID 04/04/19 02/02/23 09/23/22 07:45 History release haloperidol 5 mg tablet 5 mg PO BID 04/04/19 02/02/23 09/23/22 07:45 History paliperidone palm (3 month) 546 546 mg IM [id number] 11/27/19 02/02/23 Unknown History mg/1.75 mL intramuscular syringe ([place]) benztropine 0.5 mg tablet 0.5 mg PO BID 04/22/20 02/02/23 09/23/22 07:45 History hydroxyzine HCl 25 mg tablet 25 mg PO BID PRN ANXIETY 05/14/22 02/02/23 09/22/22 History Allergies Allergy/AdvReac Type Severity Reaction Status Date / Time Penicillins AdvReac Unknown Nausea and Verified 12/18/24 18:30 Vomiting Review of Systems Review of Systems: All systems are reviewed and are negative unless stated otherwise in the HPI. [facility] Past Medical History Medical History Schizophrenia Surgical History Surgical History History of inguinal hernia repair 09/23/22 Robotic laparoscopic right inguinal hernia repair with 3DMax mesh Left inguinal hernia repair with mesh ~[address] [place] Family History Family History Mother Patient's mother is in good health Social History Social History Smoking packs per day: 1 Smoking cigarettes per day: 20.0 Years smoked: 15 Smoking pack-years: 15.00 Smoking status: Current every day smoker Tobacco type: cigarettes Substance use: never Substance use type: methamphetamine Gender identity (if verbalized by the patient): Male Sexual Orientation (if Verbalized by the Patient): Straight or Heterosexual Spiritual care concerns: No Exam Narrative: General: Alert, awake, afebrile, in no acute distress. HEENT: PERRL, no rhinorrhea, no post nasal drip, oropharynx clear. Neck: Trachea midline, no JVD, no lymphadenopathy. Cardiovascular: Regular rate and rhythm, no murmurs, rubs or gallops, no peripheral edema. Respiratory: Clear to auscultation bilaterally, no tachypnea, no wheezing, no rhonchi, no rubs, no respiratory distress. Abdomen: Soft, nontender, nondistended, no rebound, no guarding, no peritoneal signs. Musculoskeletal: No joint swelling or deformity, normal muscle tone. Skin: No rashes or petechia, no signs of infection. Psychiatric: Alert and oriented, normal behavior and judgment for situation. Neurological: Alert and oriented to person, place, and time. Follows all commands. No focal deficits, speech is clear and fluent. Course Vital Signs Vital signs: Vital Signs Temperature 98.5 F 12/18/24 18:35 Pulse Rate 89 12/18/24 18:35 Respiratory Rate 16 12/18/24 18:35 Blood Pressure 133/89 12/18/24 18:35 Pulse Oximetry 99 12/18/24 18:35 Oxygen Delivery Room Air 12/18/24 18:35 Temperature 98.5 F 12/18/24 18:35 Pulse Rate 82 12/18/24 19:27 Respiratory Rate 16 12/18/24 18:35 Blood Pressure 133/89 12/18/24 18:35 Pulse Oximetry 99 12/18/24 18:35 Oxygen Delivery Room Air 12/18/24 19:27 Medical Decision Making MDM Narrative Medical decision making narrative: The patient was evaluated by myself in the emergency department. History is obtained from patient who is an independent historian and physical exam was performed. External medical records were reviewed at this time. IV was established and pertinent tests were ordered. patient Patient was administered 15 mg of IM Toradol for pain. EKG was obtained which revealed sinus rhythm rate 92 beats per minute,, no evidence of acute ischemia. EKG was independently interpreted by me and is currently pending official cardiology read. Laboratory results obtained revealing no acute process. Troponin negative. Imaging studies obtained included CXR which was independently interpreted by me revealing no acute process, which is pending final radiology interpretation. Differential diagnosis considerations include rib fractures, musculoskeletal strain, costochondritis. Comorbidities impacting this visit include none. I have evaluated and discussed social determinants of health with the patient that could potentially impact subsequent diagnosis and treatment plans. On repeat assessment of the patient, reevaluation revealed that the patient is doing well and is in no acute distress. Patient symptoms have improved since he arrived to our emergency department. Repeat vital signs were all reviewed and noted to be stable. Differential diagnosis and treatment plan were discussed with the patient at bedside. Patient agrees with discussion and after shared medical decision making agrees with discharge. All questions were answered to the patient's satisfaction. Patient will follow up with his PCP in 3-5 days. Patient was provided with strict return precautions and instructed to return to the emergency department if any new or worsening symptoms develop. The patient was discharged in stable condition. Vital Signs Vital Signs: Vital Signs Temperature 98.5 F 12/18/24 18:35 Pulse Rate 89 12/18/24 18:35 Respiratory Rate 16 12/18/24 18:35 Blood Pressure 133/89 12/18/24 18:35 Pulse Oximetry 99 12/18/24 18:35 Oxygen Delivery Room Air 12/18/24 18:35 Temperature 98.5 F 12/18/24 18:35 Pulse Rate 82 12/18/24 19:27 Respiratory Rate 16 12/18/24 18:35 Blood Pressure 133/89 12/18/24 18:35 Pulse Oximetry 99 12/18/24 18:35 Oxygen Delivery Room Air 12/18/24 19:27 Lab Data 12/18/24 18:43 12/18/24 18:43 Labs: Lab Results 12/18/24 Range/Units 18:43 WBC 10.8 H (4.5-10.0) K/mm3 RBC 4.96 (4.6-6.20) M/mm3 Hgb 13.8 L (14.0-18.0) g/dL Hct 42.3 (42.0-52.0) % MCV 85.3 (80-100) fl MCH 27.8 (26-34) pg MCHC 32.6 (32-36) g/dl RDW 15.7 H (11.5-14.5) % Plt Count 329 (150-375) k/mm3 MPV 9.6 (7.4-10.4) fl Immature Gran % (Auto) 0.3 (0-0.5) % Neut % (Auto) 62.9 (45.5-73.1) % Lymph % (Auto) 23.1 (18.3-44.2) % [place] % (Auto) 12.9 H (2.6-8.5) % Eos % (Auto) 0.5 (0-4.4) % Baso % (Auto) 0.3 (0.2-1.2) % Lymph # (Auto) 2.50 (0.9-3.2) K/mm3 [place] # (Auto) 1.4 H (0.1-0.6) K/mm3 Eos # (Auto) 0.1 (0-0.3) K/mm3 Baso # (Auto) 0.0 (0.0-0.1) K/mm3 Abs Immat Gran (auto) 0.03 (0.00-0.031) K/mm3 Absolute Neuts (auto) 6.8 H (1.3-6.7) K/mm3 Absolute Nucleated RBC 0.000 (0.0-0.012) K/mm3 Nucleated RBC % 0.0 (0.0-0.2) % PT 12.8 (11.1-14.7) Seconds INR 0.9 APTT 28.3 (22.3-36.8) Seconds Sodium 136 L (137-145) mmol/L Potassium 3.7 (3.4-5.0) mmol/L Chloride 101 (98-107) mmol/L Carbon Dioxide 27 (22-30) mmol/L Anion Gap 8 (4-12) mmol/L BUN 6 L (9-20) mg/dL Creatinine 0.76 (0.7-1.3) mg/dL Estim Creat Clear Calc 117 ml/min Estimated GFR > 60 (59 - ) Glucose 123 H (65-110) mg/dL Calcium 9.3 (8.4-10.2) mg/dL Total Bilirubin 0.4 (0.2-1.3) mg/dL AST 206 H (17-59) U/L ALT 67 H (6-50) U/L Alkaline Phosphatase 100 (38-126) U/L Troponin I < 0.012 (0.000-0.034) ng/mL Total Protein 8.0 (6.3-8.2) g/dL Albumin 4.3 (3.5-5.1) g/dL Lipase 19 L (23-300) U/L Discharge Plan Discharge Clinical Impression: Acute chest wall pain Patient Disposition: Home Condition: Improved Instructions: Antibiotic Form, Chest Wall Pain (ED) Additional Instructions: please follow-up with the family doctor within the next 3-5 days. Return emergency department if any new or worsening symptoms develop. Patient Language: Tamazight Prescriptions: No Action divalproex 500 mg tablet,delayed release (DR/EC) 500 mg PO BID haloperidol 5 mg tablet 5 mg PO BID hydroxyzine HCl 25 mg tablet 25 mg PO BID PRN (Reason: ANXIETY) omeprazole 40 mg capsule,delayed release(DR/EC) 40 mg PO DAILY Qty: 30 2RF omeprazole 40 mg capsule,delayed release(DR/EC) 40 mg PO DAILY Qty: 30 3RF clindamycin HCl 150 mg capsule 150 mg PO Q6H 7 Days Qty: 28 0RF Invega Trinza 546 mg/1.75 mL syringe 546 mg IM [id number] benztropine 0.5 mg tablet 0.5 mg PO BID Follow-up/Referrals: PHYSICIAN,GREY ROLL WORKER [Primary Care Provider, Internal Medicine] Gregory Manzo MD [Physician, Family Practice] - 3 Days Time of Disposition: 20:29
--- OUTSIDE RECORDS SUMMARY | 2024-12-18 20:28 | XMS_ITS | Patient Health Record ---
Author Organization Formerly [facility] Address [address] [place] [address] Care Team Providers Care Behaviorist Name Role Phone Jos Ness Primary Care Provider [phone] Rosalinda Harrison Unavailable [phone] Brionna Box Unavailable [phone] Marco Antonio Mercado Unavailable [phone] Manuela Lebron Unavailable [phone] Gonzales Arvin Unavailable [phone] Jerry Eduardo Unavailable [phone] Brenna Sutherland Unavailable [phone] Rosalinda Davison Unavailable [phone] Allergies Allergen (clinical drug ingredient) Drug/Non Drug Allergy documented on EMR Reaction Allergy Type Onset Date Status Penicillin Childhood Drug Allergy Active Results Component Value Reference Range Notes 14 Panel Urine Drug Screen Reviewed date:12/12/2024 12:01:58 PM Interpretation: Performing Lab: Notes/Report: THC neg SEDRICK neg MOP (OPI) neg AMP neg MET neg BAR neg BZO neg MDMA neg MTD neg OXY neg PCP neg BUP neg TCA neg FTY neg CBC With Differential/Platel et* (Not yet reviewed by provider) Interpretation: Performing Lab:[facility] [place], [address] [facility], Phone - [phone], Director - [facility] Notes/Report: WBC 7.3 3.4-10.8 x10E3/uL RBC 5.37 4.14-5.80 x10E6/uL Hemoglobin 14.8 13.0-17.7 g/dL Hematocrit 47.9 37.5-51.0 % MCV 89 79-97 fL MCH 27.6 26.6-33.0 pg MCHC 30.9 31.5-35.7 g/dL RDW 15.8 11.6-15.4 % Platelets 436 150-450 x10E3/uL Neutrophils 59 Not Estab. % Lymphs 28 Not Estab. % Monocytes 11 Not Estab. % Eos 1 Not Estab. % Basos 1 Not Estab. % Neutrophils (Absolute) 4.3 1.4-7.0 x10E3/uL Lymphs (Absolute) 2.0 0.7-3.1 x10E3/uL Monocytes(Absolute) 0.8 0.1-0.9 x10E3/uL Eos (Absolute) 0.1 0.0-0.4 x10E3/uL Baso (Absolute) 0.0 0.0-0.2 x10E3/uL Immature Granulocytes 0 Not Estab. % Immature Grans (Abs) 0.0 0.0-0.1 x10E3/uL CMP 14 Comprehensive Metabol ic Panel* (Not yet reviewed by provider) Interpretation: Performing Lab:[facility] [place], [address] [facility], [place], Phone - [phone], Director - Paola Notes/Report: Glucose 78 70-99 mg/dL BUN 9 6-24 mg/dL Creatinine 0.90 0.76-1.27 mg/dL eGFR 109 >59 mL/min/1.73 BUN/Creatinine Ratio 10 9-20 Sodium 140 134-144 mmol/L Potassium 4.7 3.5-5.2 mmol/L Chloride 102 96-106 mmol/L Carbon Dioxide, Total 20 20-29 mmol/L Calcium 9.8 8.7-10.2 mg/dL Protein, Total 7.8 6.0-8.5 g/dL Albumin 4.6 4.1-5.1 g/dL Globulin, Total 3.2 1.5-4.5 g/dL Bilirubin, Total 0.4 0.0-1.2 mg/dL Alkaline Phosphatase 112 44-121 IU/L AST (SGOT) 20 0-40 IU/L ALT (SGPT) 19 0-44 IU/L QuantiFERON-TB Gold Plus (44 1191) (Not yet reviewed by provider) Interpretation: Performing Lab:[facility], [address] [facility], [place], Phone - [phone], Director - Paola Notes/Report: QuantiFERON Incubation Incubation performed. QuantiFERON-TB Gold [...] for the test. QuantiFERON TB1 Ag Value 0.04 QuantiFERON TB2 Ag Value 0.06 QuantiFERON Nil Value 0.03 QuantiFERON Mitogen Value >10.00 Breathalyzer Reviewed date:12/12/2024 12:01:24 PM Interpretation: Performing Lab: Notes/Report: MARIA TERESA 0.000 Urinalysis In-House, Routine Reviewed date:03/15/2024 02:54:42 PM Interpretation: Performing Lab: Notes/Report: Urine-Color yellow Appearance clear Leukocytes neg Nitrite, Urine neg Urobilinogen,Semi-Qn 0.2 Protein neg pH 6.5 Occult Blood neg Specific [place] 1.010 Ketones neg Bilirubin neg Glucose neg HIV Screen *HIV 1, 2 Ab, p24 Ag (292231) Reviewed date:03/20/2024 02:47:33 PM Interpretation:Negative Performing Lab:[facility], [place], Phone - [phone], Director - Martir Notes/Report: HIV Ab/p24 Ag Screen Non Reactive Non Reactive HIV-1/HIV-2 antibodies and HIV-1 p24 antigen were NOT detected. There is no laboratory evidence of HIV infection. HIV Negative Chlamydia/Gonococcus/Mycopla sma genitalium, ROSEMARY, Urine Reviewed date:03/20/2024 02:47:33 PM Interpretation:Negative Performing Lab:[facility] [address], [place], Phone - [phone], Director - Martir Notes/Report: Mycoplasma genitalium ROSEMARY Negative Negative Chlamydia trachomatis, ROSEMARY Negative Negative Neisseria gonorrhoeae, ROSEMARY Negative Negative Urine Culture, Routine* Reviewed date:03/20/2024 02:47:33 PM Interpretation:Normal Performing Lab:[facility], [address] [place] [address], Phone - [phone], Director - Martir Notes/Report: Urine Culture, Routine Final report Result 1 No growth RPR w/reflex to TrepSure Reviewed date:03/20/2024 02:47:33 PM Interpretation:Negative Performing Lab:[facility], [address] [place] [address], Phone - [phone], Director - Martir Notes/Report: RPR Non Reactive [...] full CDC-recommended syphilis screening and diagnosis algorithm, [facility] offers test code 990220 RPR, Rfx Qn RPR/Confirm TP or 915065 T pallidum Screening [place]. Herpes Simplex Virus Types 1 and 2 -specific Antibodies, IgG Reviewed date:03/20/2024 02:47:33 PM Interpretation:Negative [facility]forming Lab[facility], [address] [place] [address], Phone - [phone], Director - Martir Notes/Report: HSV 1 IgG, [...] using the Gin Elecsys HSV-2 IgG assay. QuantiFERON-TB Gold Plus ([id number] 4679) Reviewed date:06/26/2024 08:29:46 AM Interpretation:Negative Performing Lab:[facility], [address] [facility], Phone - [phone], Director - Paola Notes/Report: QuantiFERON Incubation Incubation performed. QuantiFERON-TB Gold [...] 2879) Reviewed date:01/24/2024 11:12:27 AM Interpretation: Performing Lab[facility], [address] [facility], Phone - [phone], Director - Paola Notes/Report: QuantiFERON Incubation Incubation performed. QuantiFERON-TB Gold [...] Duration) Notes Start Date End Date Status hydrOXYzine Pamoate 50 MG 2 capsules for 100 mg Orally Once a day; Duration: 30 days at night on cru Active Multi Vitamin - 1 tablet Orally Once a day; Duration: 30 days on cru 12/12/2024 Active Prazosin HCl 2 MG 1 capsule at bedtime Orally Once a day; Duration: 30 days on cru Active Melatonin 5 MG 1 tablet at bedtime as needed Orally Once a day; Duration: [address] [facility] 12/12/2024 Active Invega Trinza 819 MG/2.63ML as directed Intramuscular every 84 days Active Nicotine 21 MG/24HR 1 patch to skin. Transdermal Once a day, removing at bedtime on [facility] 12/12/2024 Active hydrOXYzine Pamoate 25 MG 1-2 capsules Orally every 4 hours as needed for anxiety, agitation; Duration: [address] [facility] 12/12/2024 Active Haloperidol 5 mg TAKE 1 TABLET BY PRIMITIVO TH DAILY; Duration: 30 Active Austedo XR 24 MG 1 tablet Orally Once a day; Duration: 30 days on u Active lamoTRIgine 25 MG 2 tablets for 50 mg Orally Once daily at night; Duration: 30 days on u Active Lybalvi 5-10 MG 1 tablet Orally Once a day; Duration: [address] [facility] 12/12/2024 Active Topiramate 25 MG 1 tablet Orally twic e a day Active hydrOXYzine Pamoate 50 mg TAKE 2 CAPSULES BY MOUTH EVERY NIGHT; Duration: 30 Not-Taking Nicotine 21 MG/24HR 1 patch to skin Transdermal Once a day Active Melatonin 5 MG 1 tablet in the even ing Orally Once a day Active Social History Tobacco Use: Social History Observation Description Date Details (start date - stop date) Former Smoker 10/31/2014 - 12/06/2024 Sex Assigned At : Social History Observation Description Sex Assigned At Male PRAPARE Question Answer Notes Date Completed/Updated: 12/12/2024 What is your current housing situation? I have h ousing Are you worried about losing your housing? No What is the highest level of school that you have finished? High school diploma or GED What is your current work situation? Oth erwise unemployed but not seeking work (ex. 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 Check all that apply I do not have problems meeting my needs Has lack of transportation k ept you from medical appointments, meetings, work or from getting things needed for daily living? Yes, it has kept me from medical appointments or from getting my medications,Yes, it has kept me from non-medical meetings, appointments, work, or getting things needed for daily living How often do you see or talk to people that you care about and feel close to? (For example: talking to friends on the phone, visiting friends or family, going to advent or club meetings) 3 to 5 times a week How stressed are you? Stress is when someone feels tense, nervous, anxious, or can\t sleep at night because their mind is troubled Not at all In the past year have you sp ent more than 2 nights in a row in a fci, correction, prison center, or juvenile correctional facility? No Are you a refugee? I choose not to answer this q uestion What country are you from? I choose not to answe r this question Do you feel physically and e motionally safe where you currently live? No In the past year, have you b een afraid of your partner or ex-partner? Yes PRAPARE Score: 9 Enabling Services Provided? Yes Please specify Case Management Follow-up Tobacco Control (Standard) Question Answer Notes Tobacco use: Former smoker When did you start smoking? 10/31/2014 When did you stop smoking? 12/06/2024 How long has it been since you last smoked? Less than 1 month Problems Problem Type SNOMED Code ICD Code Onset Dates Problem Status W/U Status Risk Notes Problem Tobacco user (829656081) Nicotine dependence, unspecified, uncomplicated (F17.200) Active confirmed Problem Schizoaffective disorder, bipolar type (31261981) Schizoaffective disorder, bipolar type (F25.0) 02/03/20 24 Active confirmed Problem Generalized anxiety disorder (38664686) Generalized anxiety disorder (F41.1) Active confirmed Problem Abdominal pain (15366545) Abdominal pain (R10.9) Active confirmed Problem Foot pain (87021431) Foot pain (M79.673) Active confirmed Problem Overweight (759895048) Over weight (E66.3) Active confirmed Problem Insomnia due to mental disorder (37566126) Insomnia due to mental disorder (F51.05) 02/03/20 24 Active confirmed Problem Alcohol use disorder (9193418090) Alcohol use disorder (F10.99) Active confirmed Problem Nightmares (106747374) Nightmares (F51.5) 02/03/20 24 Active confirmed Problem Methamphetamine abuse (923269998) Methamphetamine abuse (F15.10) Active confirmed Problem History of methamphetamine use (84911220817366794 ) Methamphetamine use (F15.10) Active confirmed Problem Physical examination (4363652) Routine physical examination (Z00.00) Active confirmed Problem Cocaine abuse (20198652) Cocaine use (F14.10) Active confirmed Problem Mental health disorder (44310850) Mental health disorder (F99) Active confirmed Problem Difficulty sleeping (955828156) Sleeping difficulty (G47.9) Active confirmed Problem Obesity (356641518) Obesity (BMI 30-39.9) (E66.9) Active confirmed Problem Tobacco use (340372722) Tobacco use disorder (F17.200) Active confirmed Problem Obesity (604614323) Obesity, unspecified classification, unspecified obesity type, unspecified whether serious comorbidity present (E66.9) Active confirmed Problem Cocaine dependence in remission (787731972) Cocaine use disorder, moderate, in early remission (F14.21) Active confirmed Problem Stimulant dependence (359865953) Methamphetamine use disorder, 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) Active confirmed Problem Cannabis use disorder (6540433958) Cannabis use disorder (F12.90) Active confirmed Vital Signs Heart Rate 73 /min 12/12/2024 Temperature 98.2 degrees Fahrenheit 12/12/2024 Respiratory Rate 16 /min 12/12/2024 Oximetry 98 % 12/12/2024 Blood pressure diastolic 68 mm Hg 12/12/2024 Height 67 in 12/12/2024 Blood pressure systolic 120 mm Hg 12/12/2024 Weight 206.6 lbs 12/12/2024 BMI 32.35 kg/m2 12/12/2024 Encounters Encounter Location Date Provider Diagnosis [facility] [address] [place] [address] 12/12/2024 Rosalinda Harrison Physical exam Z00.00 ; Schizoaffective disorder, bipolar type F25.0 ; Nightmares F51.5 ; Insomnia due to mental disorder F51.05 and Tardive dyskinesia G24.[address] [address] 12/30/2023 Kyria Eduardo Schizoaffective disorder, bipolar type F25.0 and Methamphetamine use F15.10 [facility] [address] [place] [address] 01/19/2024 Arvin Gonzales [facility] examination in adult Z00.00 ; Methamphetamine use disorder, severe F15.20 ; Nicotine dependence, unspecified, uncomplicated F17.200 ; Cocaine use disorder, moderate, in early remission F14.21 ; Deep inguinal pain, left R10.30 and Schizoaffective disorder, bipolar type F25.0 [facility] [address] [place] [address] 02/02/2024 Marco Antonio Mercado Schizoaffective disorder, bipolar type F25.0 [facility] [address] [place] [address] 02/03/2024 Kyria Eduardo Schizoaffective disorder, bipolar type F25.0 ; Nightmares F51.5 ; Insomnia due to mental disorder F51.05 ; Methamphetamine use F15.10 and Tardive dyskinesia G24.[address] [address] 02/21/2024 Rosalinda Harrison Schizoaffective disorder, bipolar type F25.0 ; Nightmares F51.5 ; Insomnia due to mental disorder F51.05 ; Methamphetamine use F15.10 and Tardive dyskinesia G24.[address] [place] [address] 03/15/2024 Brenna Sutherland Symptoms of urinary tract infection R39.9 and Exposure to potential infection Z20.[address] [address] 03/15/2024 Brenna Sutherland Exposure to potentia l infection Z20.9 and Symptoms of urinary tract infection R39.[address] [address] 03/29/2024 Brenna Short Dysuria R30.[address] [address] 04/24/2024 Rosalinda Hnuter Schizoaffective disorder, bipolar type F25.0 ; Nightmares F51.5 ; Insomnia due to mental disorder F51.05 ; Methamphetamine use F15.10 and Tardive dyskinesia G24.[address] [address] 04/24/2024 Rosalinda Hunter Schizoaffective disorder, bipolar type F25.[address] [address] 05/18/2024 Rosalinda Hunter Schizoaffective disorder, bipolar type F25.0 ; Nightmares F51.5 ; Insomnia due to mental disorder F51.05 ; Methamphetamine use F15.10 and Tardive dyskinesia G24.[address] [address] 05/31/2024 Rosalinda Hunter Schizoaffective disorder, bipolar type F25.0 ; Nightmares F51.5 ; Insomnia due to mental disorder F51.05 ; Methamphetamine use F15.10 and Tardive dyskinesia G24.01 [facility] [address] [place] [address] 06/20/2024 Brenna Sutherland [facility] general medica l exam Z00.00 [facility] [address] [place] [address] 06/27/2024 Rosalinda Hunter Schizoaffective disorder, bipolar type F25.0 ; Nightmares F51.5 ; Insomnia due to mental disorder F51.05 ; Methamphetamine use F15.10 and Tardive dyskinesia G24.[address] [address] 07/24/2024 Rosalinda Hunter Schizoaffective disorder, bipolar type F25.0 ; Nightmares F51.5 ; Insomnia due to mental disorder F51.05 ; Methamphetamine use F15.10 and Tardive dyskinesia G24.[address] [address] 10/26/2024 Rosalinda Harrison Schizoaffective disorder, bipolar type F25.0 ; Nightmares F51.5 ; Insomnia due to mental disorder F51.05 ; Methamphetamine use F15.10 and Tardive dyskinesia G24.01 [facility] [address] [place] [address] 12/12/2024 Rosalinda Davison Mental health disord er F99 and Over weight E66.3 [facility] [address] [place] [address] [facility] [address] [place] [address] 12/28/2023 Jerry Eduardo [facility] [address] [place] [address] 01/19/2024 Arvin Gonzales [facility] [address] [place] [address] 01/20/2024 Arvinjamison Gonzales Sleeping difficulty G47.9 [facility] [address] [place] [address] 01/24/2024 Jos [facility] [address] [place] [address] 01/26/2024 Jerry Frenchanan [facility] [address] [place] [address] 01/28/2024 Jerry Eduardo [facility] [address] [place] [address] 01/28/2024 Jos [facility] [address] [place] [address] 02/02/2024 Marco Antonio Mercado [facility] [address] [place] [address] 02/03/2024 [facility] [address] [place] [address] 02/03/2024 Jerry Frenchanan [facility] [address] [place] [address] 02/11/2024 Jos Ness [facility] [address] [place] [address] 02/14/2024 Jos Ness Insomnia due to ment al disorder F51.05 [facility] [address] [place] [address] 03/08/2024 Rosalinda Harrison [address] [place] [address] 03/13/2024 Jos Ness [address] [place] [address] 03/20/2024 Brenna Sutherland [address] [place] [address] 04/11/2024 Rosalinda Harrison [address] [place] [address] 04/18/2024 Rosalinda Harrison Schizoaffective disorder, bipolar type F25.[address] [place] [address] 04/20/2024 Jos Ness [address] [place] [address] 04/25/2024 Rosalinda Harrison [address] [place] [address] 05/23/2024 Rosalinda Harrison Insomnia due to ment al disorder F51.05 [facility] [address] [place] [address] 07/17/2024 Rosalinda Harrison [address] [place] [address] 11/08/2024 Rosalinda Harrison [address] [place] [address] 11/16/2024 Rosalinda Harrison Nightmares F51.5 and Schizoaffective disorder, bipolar type F25.0 [facility] [address] [place] [address] 01/18/2024 Brionna Gateslenox dale Schizoaffective disorder, bipolar type F25.0 Assessments Encounter Date Diagnosis (ICD Code) Assessment Notes Treatment Notes Treatment Clinical Notes Section Notes 04/24/2024 Schizoaffective disorder, bipolar type (ICD-10 - F25.0) 12/12/2024 Physical exam (ICD-10 - Z00.00) Admit [...] there is pus, a foul odor, increased pain/redness/swelling , or if soaking through bandages. 01/20/2024 Sleeping difficulty (ICD-10 - G47.9) 01/19/2024 Encounter for wellness examination in adult (ICD-10 - Z00.00) 01/19/2024 Methamphetamine use disorder, severe (ICD-10 - F15.20) 01/18/2024 Schizoaffective disorder, bipolar type (ICD-10 - F25.0) 12/12/2024 Mental health disorder (ICD-10 - F99) 11/16/2024 Nightmares (ICD-10 - F51.5) 10/26/2024 Schizoaffective disorder, bipolar type (ICD-10 - [...] temporary or permanent movement disorders, and akathisia. 06/27/2024 Schizoaffective disorder, bipolar type (ICD-10 - [...] Adult general medical exam (ICD-10 - Z00.00) 05/31/2024 Schizoaffective disorder, bipolar type (ICD-10 - F25.0) Continue topiramate for appetite and weight gain, discussed r/b/se. Take as prescribed. Reviewed Invega purpose (mood stability), benefits, and risks - low blood pressure, metabolic syndrome with high cholesterol or high blood sugars, change in cardiac conduction, nausea, vomiting, temporary or permanent movement disorders, and akathisia. 05/23/2024 Insomnia due to mental disorder (ICD-10 - F51.05) 05/18/2024 Schizoaffective disorder, bipolar type (ICD-10 - F25.0) Continue topiramate for appetite and weight gain, discussed r/b/se. Take as prescribed. Reviewed Invega purpose (mood stability), benefits, and risks - low blood pressure, metabolic syndrome with high cholesterol or high blood sugars, change in cardiac conduction, nausea, vomiting, temporary or permanent movement disorders, and akathisia. Stop Halidol- monitor bipolar chemistry 04/24/2024 Schizoaffective disorder, bipolar type (ICD-10 - F25.0) starting low-dose topiramate for appetite and weight gain, discussed r/b/se. Take as prescribed. Reviewed Invega purpose (mood stability), benefits, and risks - low blood pressure, metabolic syndrome with high cholesterol or high blood sugars, change in cardiac conduction, nausea, vomiting, temporary or permanent movement disorders, and akathisia. 04/18/2024 Schizoaffective disorder, bipolar type (ICD-10 - F25.0) 03/29/2024 Dysuria (ICD-10 - R30.0) 03/15/2024 Exposure to potential infection (ICD-10 - Z20.9) 03/15/2024 Symptoms of urinary tract infection (ICD-10 - R39.9) 03/15/2024 Exposure to potential infection (ICD-10 - Z20.9) 02/21/2024 Schizoaffective disorder, bipolar type (ICD-10 - F25.0) 02/14/2024 Insomnia due to mental disorder (ICD-10 - F51.05) 02/02/2024 Schizoaffective disorder, bipolar type (ICD-10 - F25.0) 12/30/2023 Schizoaffective disorder, bipolar type (ICD-10 - [...] Casandra LOPES who confirms pt was at [place] recently and received Invega Sustenna injection on [...] or be administered own oral medications per [facility] protocols. Provided informed consent with understanding of side effects, adverse effects, risks and benefits as well as alternative treatments as previously discussed and with the above recommended medications & other aspects of the treatment program. Agrees to return sooner if symptoms worsen or suicidal or homicidal ideations occur. 12/30/2023 Methamphetamine use (ICD-10 - F15.10) 02/03/2024 Schizoaffective disorder, bipolar type (ICD-10 - F25.0) 02/03/2024 Nightmares (ICD-10 - F51.5) 02/03/2024 Insomnia due to mental disorder (ICD-10 - F51.05) 02/21/2024 Nightmares (ICD-10 - F51.5) 03/15/2024 Symptoms of urinary tract infection (ICD-10 - R39.9) 04/24/2024 Nightmares (ICD-10 - F51.5) 05/18/2024 Nightmares (ICD-10 - F51.5) 05/31/2024 Nightmares (ICD-10 - F51.5) 06/27/2024 Nightmares (ICD-10 - F51.5) 07/24/2024 Nightmares (ICD-10 - F51.5) 10/26/2024 Nightmares (ICD-10 - F51.5) 11/16/2024 Schizoaffective disorder, bipolar type (ICD-10 - F25.0) 12/12/2024 Over weight (ICD-10 - E66.3) 01/19/2024 Nicotine dependence, unspecified, uncomplicated (ICD-10 - F17.200) he was counseled on stopping smoking cigarettes. Since he is in residential rehabilitation for methamphetamine use and cocaine use disorders, this would not be the best time for him to stop smoking. However, he should start thinking about this so that he has a plan to stop smoking sometime in the not too distant future. 12/12/2024 Schizoaffective disorder, bipolar type (ICD-10 - F25.0) Reports has not been feeling stable. Stop Haldol- start Lybalvi. Continue Invega order at this time. Client would like to look to [facility] for HUANG, will assess if appropriate at [...] and akathisia. 12/12/2024 Nightmares (ICD-10 - F51.5) 01/19/2024 Cocaine use disorder, moderate, in early remission (ICD-10 - F14.21) 10/26/2024 Insomnia due to mental disorder (ICD-10 - F51.05) 07/24/2024 Insomnia due to mental disorder (ICD-10 - F51.05) 06/27/2024 Insomnia due to mental disorder (ICD-10 - F51.05) 05/31/2024 Insomnia due to mental disorder (ICD-10 - F51.05) Reports not sleeping with removal of Haldol even with increase in trazodone to 300mg, decrease back to 200mg and restarting low-dose Haldol. Discussed r/b/se. 05/18/2024 Insomnia due to mental disorder (ICD-10 - F51.05) client concerned about weight- adjusting 04/24/2024 Insomnia due to mental disorder (ICD-10 - F51.05) 02/21/2024 Insomnia due to mental disorder (ICD-10 - F51.05) 02/03/2024 Methamphetamine use (ICD-10 - F15.10) 02/03/2024 Tardive dyskinesia (ICD-10 - G24.01) Today's visit: Patient is a 43 year old male who presents for a psychiatric follow up appt over phone and is currently in [place], [place]. with h/o schizoaffective disorder, substance use [...] it appears to be for sleep, however [facility] staff report he is taking 30 mg [...] or be administered own oral medications per [facility] protocols. Provided informed consent with understanding of side effects, adverse effects, risks and benefits as well as alternative treatments as previously discussed and with the above recommended medications & other aspects of the treatment program. Agrees to return sooner if symptoms worsen or suicidal or homicidal ideations occur. 02/21/2024 Methamphetamine use (ICD-10 - F15.10) 05/18/2024 Methamphetamine use (ICD-10 - F15.10) 04/24/2024 Methamphetamine use (ICD-10 - F15.10) 05/31/2024 Methamphetamine use (ICD-10 - F15.10) 06/27/2024 Methamphetamine use (ICD-10 - F15.10) 07/24/2024 Methamphetamine use (ICD-10 - F15.10) 10/26/2024 Methamphetamine use (ICD-10 - F15.10) 01/19/2024 Deep inguinal pain, left (ICD-10 - R10.30) he was reassured that the hernia has not recurred and the pain he takes experiences is not of any serious origin 12/12/2024 Insomnia due to mental disorder (ICD-10 - F51.05) 12/12/2024 Tardive dyskinesia (ICD-10 - G24.01) States this is working well at this time, denies SE. My TD is doing really well right now. May look to D/C in future appt if client continues with stability as he reports not wanting to stay on this medication. 01/19/2024 Schizoaffective disorder, bipolar type (ICD-10 - F25.0) he has had 2 doses of Invega Sustenna and now can be switched at his next dose to Invega Trinza which he has successfully taken before. 10/26/2024 Tardive dyskinesia (ICD-10 - G24.01) States [...] TD is doing really well right now. 05/31/2024 Tardive dyskinesia (ICD-10 - G24.01) States this is working well at this time, denies SE. My TD is doing really well right now. 04/24/2024 Tardive dyskinesia (ICD-10 - G24.01) 05/18/2024 Tardive dyskinesia (ICD-10 - G24.01) 02/21/2024 Tardive dyskinesia (ICD-10 - G24.01) 12/12/2024 Other Discussed r/b/se of treatment regimens. Patient on crisis unit where staff have access to this report. 01/19/2024 Other he is appropria te for the [facility]. He is also able to self [...] May also contact the 24-hour crisis hotline ([facility]), refer to the closest emergency room or [...] May also contact the 24-hour crisis hotline ([facility]), refer to the closest emergency room or [...] May also contact the 24-hour crisis hotline ([facility]), refer to the closest emergency room or [...] May also contact the 24-hour crisis hotline ([facility]), refer to the closest emergency room or [...] May also contact the 24-hour crisis hotline ([facility]), refer to the closest emergency room or [...] May also contact the 24-hour crisis hotline ([facility]), refer to the closest emergency room or [...] May also contact the 24-hour crisis hotline ([facility]), refer to the closest emergency room or [...] assess appearance, affect, AIMS, or vital signs. 12/12/2024 Other Clinician met w ith client to assess needs for residential services. Clinician gathered information regarding historical presentation of mental health and substance use symptoms including withdrawal, HIV Risk assessment, psychiatric hospitalization history and presenting concern. Clinician conducted PHQ9 and CSSRS assessments as well as social drivers of health screening for the purposes of identifying additional service needs. Plan Of Treatment Pending Test Test Name Order Date CBC With Differential/Platelet* 08/24/19 21 Valproic Acid (Depakote)(R),S 08/23/2020 CMP 14 Comprehensive Metabolic Panel* Future Test Test Name Order Date CBC With Differential/Platelet* 12/13/19 25 CMP 14 Comprehensive Metabolic Panel* QuantiFERON-TB Gold Plus ([id number]) 2024 Next Appt Details Provider Name:Rosalinda horowitz, 12/19/2024 01:20:00 PM, [address], [place], [address], Insurance Providers Payer Name Payer Address Payer Phone Subscriber Number Group Number Insured Name Patient Relationship to Insured Coverage Start Date Coverage End Date MEDICARE PART A [address] [place] [address] [id number] Dominguez Hopper Self - patient is the insured [address] [facility] Medicare [address] [address] [place] [address] [phone] [id number] Dominguez Hopper Self - patient is the insured 4 MEDICAID [address] [facility] [address] [id number] Dominguez Hopper Self - patient is the insured 1 [employer] Medicare [address] [place] [address] [id number] Dominguez Hopper Self - patient is the insured [address] [facility] MEDICARE DAM TENDER ASSISTANT [address] [address] [place] [address] [phone] [id number] Dominguez Hopper Self - patient is the insured Medications Administered Medication Instructions Date of Administration Dosage Notes Invega Sustenna 08/03/2023 234 mg Invega Sustenna 12/01/2023 234 [facility] Invega Sustenna 12/30/2023 234 mg Given at [facility] Invega Trinza 09/24/2020 410 mg Pt nathan [...] well. Invega Trinza 02/02/2024 819 mg Lary RIBBON INKER, Mary Horowitz LPN 02/02/2024 04:18:36 PM CDT >Patient tolerated [...]
--- OUTSIDE RECORDS SUMMARY | 2024-12-18 20:29 | XMS_ITS | Patient Health Record ---
Author Organization [facility] [employer] Address [address] [facility] [address] [place] [address] Care Team Providers Care Psychological Anthropologist Name Role Phone Thomas Billings Unavailable [phone] Reason For Referral No Information Plan Of Treatment No Information
--- OUTSIDE RECORDS SUMMARY | 2024-12-18 20:29 | XMS_ITS | Clinical Summary ---
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
--- OUTSIDE RECORDS SUMMARY | 2024-12-18 20:29 | XMS_ITS | Clinical Summary ---
Author Organization [facility] Address [address] [place] [address] Phone Care Team Providers Care Medical Equipment Sales Name Role Phone Provider, None Primary Care [...] to complete this topic Insurance MEDICARE C [facility] Care Teams Medical Equipment Sales Relationship Specialty Start Date End Date Provider, None [place] PCP - General 10/25/19 Kong Rodriguez MD [address] [facility] [address] [place] [address] Consulting Physician Urology 05/12/24
== END 2024-12-18 20:34 | disposition home or self-care (01) ==
PROVIDERS: Emergency Medicine; Emergency Provider Emergency Medicine
DX: R07.89 Other chest pain (principal); F20.9 Schizophrenia, unspecified; F17.210 Nicotine dependence, cigarettes, uncomplicated; Z79.899 Other long term (current) drug therapy; R94.31 Abnormal electrocardiogram [ECG] [EKG]
CPT/HCPCS: 36415; 71046; 80053; 83690; 84484; 85025; 85610; 85730; 93005; 96374; 99284; J1885

== ENCOUNTER 2025-03-17 13:15 | Emergency (ER) | payer MEDICARE, MEDICAID, SELFPAY ==
--- OUTSIDE RECORDS SUMMARY | 2025-01-23 09:20 | XMS_ITS ---
Author Organization [facility] Address [address] [place] [address] Care Team Providers Care Director Of Casework Services Name Role Phone Elder Plunkett Primary Care Provider Rosalinda Harrison Unavailable [phone] REASON FOR VISIT [place] called and cx appt 4 week F/U Social History Sex Assigned At : Social History Observation Description Sex Assigned At Male Encounters Encounter Location Date Provider Diagnosis [address] [address] 01/23/2025 oRsalinda Harrison Plan Of Treatment Next Appt Details Provider Name:Rosalinda horowitz, 03/20/2025 09:00:00 AM, [address], [place], [address], Progress Notes * Ede ANGELESOB: 2 (44 yo M)Acc No.[id number]:01/23/2025 UNLOCKED PROGRESS NOTE Patient: Dominguez MAX Provider: Petra Harrison, MSN, CITY SURVEYOR, ESTIMATING ENGINEER-C :1980 A ge:44 Y S ex:Male Date:01/23/2025 Address:[address] [facility] Pcp:Elder Plunkett Structured Data:Is there a n saroj you would prefer we call you? (Nombre fifi prefpatsye usar) : Yes 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 [place] called and cx appt 4 week F/U. * Medical History: Objective: * Vitals: Assessment: Plan: * Treatment: * * Electronic signature of Conner Harrison , [id number] on 03/17/2025 at 02:01 PM MOTOR TESTER Sign off status: Pending * Provider: Petra Harrison, MSN, CITY SURVEYOR, ESTIMATING ENGINEER-C Date: 0 01/23/2025 Generated for Gisela branch/Vanita/eTshawsmitting on: 1 05/17/2024 02:01 PM MOTOR TESTER
[2025-03-17 13:18] VITALS: BP 150/95; PULSE 78; RESP 18; TEMP 36.4; O2SAT 100
--- OUTSIDE RECORDS SUMMARY | 2025-03-17 14:01 | XMS_ITS | Clinical Summary ---
Author Organization [facility] Address [address] [place] [address] Care Team Providers Care Summer Law Associate Name Role Phone Jos Ness APRN-STREET OPENINGS INSPECTOR Primary Care Provide r Source Comments [facility],non-owned Affiliates and Associated Physician Practices is amultiple site organization consisting of ambulatory clinics and hospital sitesin [place], [place], [place] and [place]. This disclosure is being madepursuant to the Care Everywhere program and may not contain all information available regarding this patient. Last updated 18.[facility] Allergies No known active allergies Medications * This document contains information received from the source organization and may not represent a complete record from that organization. * Be aware that medications may not be up to date on this document. Alwaysverify current medications with the patient. gabapentin (NEURONTIN) 300 MG capsule Take 1 (one) capsule by mouth 3 times daily 90 capsule 06/16/2021 Active paliperidone CR 24hr (INVEGA) 3 MG tablet Take 1 (one) tablet by mouth every morning 30 tablet 06/17/2021 Active haloperidol (Haldol) 5 MG tablet Take 1 (one) tablet by mouth 2 times daily 60 tablet 11/24/2023 Active lamoTRIgine (LaMICtal) 25 MG tablet TAKE TWO TABLETS BY MOUTH AT BEDTIME 30 tablet 11/24/2023 Active mirtazapine (Remeron) 30 MG tablet TAKE ONE TABLET BY MOUTH AT BEDTIME 30 tablet 11/24/2023 Active hydrOXYzine HCl (Atarax) 50 MG tablet TAKE ONE TABLET BY MOUTH FOUR TIMES A DAY NEEDED 30 tablet 11/24/2023 Active Active Problems Problem Noted Date Diagnosed Date Hyponatremia 11/22/2023 Stimulant use disorder 11/22/2023 Marijuana use 11/22/2023 Other schizophrenia 11/22/2023 Polysubstance abuse 06/07/2021 Homicidal ideations 06/07/2021 Bipolar 1 disorder 10/29/2019 Resolved Problems Problem Noted Date Diagnosed Date Resolved Date Hypokalemia 11/22/2023 11/24/2023 Psychosis, unspecified psychosis type 11/22/2023 11/24/2023 GEORGINA (acute kidney injury) 11/22/2023 Non-traumatic rhabdomyolysis 11/22/2023 11/24/2023 Elevated AST (SGOT) 11/22/2023 11/24/19 Elevated alanine aminotransferase (ALT) level 11/22/19 24 11/24/2023 Bandemia 11/22/2023 11/24/2023 Tachycardia 11/22/2023 11/24/2023 Immunizations Immunization Administration Dates Next Due TDAP (7yrs+) 11/02/2017 Family History Medical History Relation Name Comments Schizophrenia Father Seizures Father CAD (Coronary Artery Disease) Mother s/p stent COPD - Chronic Obstructive Pulmonary Disease Mother Hypertension Mother Relation Name Status Comments Father Mother Social History Tobacco Use Types Packs/Day Years Used Date Smoking Tobacco: Every Day Cigarettes Smokeless Tobacco: Never Tobacco Cessation:Ready to Q uit: No; Counseling Given: Yes Alcohol Use Standard Drinks/Week Comments Yes 1 (1 standard drink = 0.6 oz pur e alcohol) AUDIT-C Answer Date Recorded Q1: How often do you have a drink containing alc ohol? Never 06/07/2021 Q2: How many drinks containi ng alcohol do you have on a typical day when you are drinking? 1 or 2 06/07/2021 Q3: How often do you have six or more drinks on one occasion? 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 Gender Identity Not on file Sexual Orientation Not on file Last Filed Vital Signs Vital Sign Reading Time Taken Comments Blood Pressure 111/77 11/24/2023 3:32 AM CDT Pulse 77 11/24/2023 3:32 AM CDT Temperature 36.9 C (98.4 F) 11/24/2023 3:32 AM CDT Respiratory Rate 19 11/24/2023 3:32 AM CDT Oxygen Saturation 95% 11/24/2023 3:32 AM CDT Inhaled Oxygen Concentration - - Weight 97.1 kg (214 lb 1.1 oz) 11/22/2023 1:27 P M CDT Height 165.1 cm (5' 5) 06/07/2021 10:54 PM FACILITY ASSISTANT Body Mass Index 35.62 06/07/2021 10:54 PM FACILITY ASSISTANT Plan of Treatment Health Maintenance Due Date Last Done Comments HEPATITIS C SCREENING 09/17/1999 HEPATITIS B VACCINE (1 of 3 - 19+ 3-dose series) 2000 PNEUMOCOCCAL VACCINE (1 of 2 - PCV) 2000 HPV VACCINE (1 - 3-dose SCDM series) 2008 MEDICARE AWV CALENDAR YEAR 2024 COVID-19 VACCINE (3 - 2024-2 6 season) 2024 09/14/2020, 08/17/2020 INFLUENZA VACCINE (#1) 2024 , 02/13/2020 DTAP/TDAP/TD VACCINES (2 - T d or Tdap) 11/03/2027 11/02/2017 LIPID TESTING 11/21/2028 11/22/2023, 11/01/2019 ZOSTER VACCINE (1 of 2) 09/22/2031 HIV SCREENING Completed 11/22/2023 HIB VACCINE Aged Out No longer eligi ble based on patient's age to complete this topic MENINGOCOCCAL (Group B) VACCINE SHARED DECISION-MAKING Aged Out No longer eligible based on patient's age to complete this topic MENINGOCOCCAL GROUPS A/C/Y/W VACCINE Aged Out No longer eligible b ased on patient's age to complete this topic Procedures Procedure Name Priority Date/Time Associated Diagnosis Comments LIPID PROFILE STAT 11/22/2023 2:37 PM CDT HIV-1 HIV-2 ANTIBODY + HIV P24 AG PANEL STAT 11/22/2023 2:37 PM CDT from Last 3 Months or Most Recently Relevant to Health Maintenance Results * HIV-1 HIV-2 ANTIBODY + HIV P24 AG PANEL (11/22/2023 2:37 PM CDT) HIV Antigen/Antibod y 1 & 2 Non-reacti ve Non-react myrna 11/22/2023 3:35 PM CDT [facility] Comment:No Laboratory eviden ce of HIV infection. Blood BLOOD SPECIMEN / Unknown Venipuncture / Unknown 11/22/2023 2:37 PM CDT 11/22/2023 2:42 PM CDT us Hansel Butler MD LAB - CHEMISTRY ORDERABLES Fi nal Result [address] [address], [facility] [phone] * (ABNORMAL) LIPID PROFILE (11/22/2023 2:37 PM CDT) Cholesterol Total 303(H) <200 mg/dL 11/22/2023 3:19 PM CDT [facility] HDL 53 >40 mg/dL 11/22/2023 3:19 PM CDT [facility] Comment: ATP III Classification of HDL Cholesterol: <40 mg/dL: Considered a major risk factor. >60 mg/dL: Considered a negative risk factor. LDL Calculated 226(H) <100 mg/dL 11/22/2023 3:19 PM CDT [facility] Comment: ATP III Classification of LDL Cholesterol: <100 mg/dL: Optimal 100 - 129 mg/dL: Near Optimal/Above Optimal 130 - 159 mg/dL: Borderline High 160 - 189 mg/dL: High >190 mg/dL: Very High Triglycerides 122 <150 mg/dL 11/22/2023 3:19 PM CDT [facility] Comment: ATP III Classification of Triglycerides: <150 mg/dL: Normal 150 - 199 mg/dL: Borderline High 200 - 400 mg/dL: High >500 mg/dL: Very High Blood BLOOD SPECIMEN / Unknown Venipuncture / Unknown 11/22/2023 2:37 PM CDT 11/22/2023 2:49 PM CDT us Hansel Butler MD LAB - CHEMISTRY ORDERABLES Fi nal Result [facility] [address] [place] [address], [facility] [phone] from Last 3 Months or Most Recently Relevant to Health Maintenance Insurance [facility] MANAGED MEDICARE [facility] Advance Directives * Full Code (Latest Code Status on File) Date Activated Date Inactivated Comments 11/22/2023 6:43 PM 11/24/2023 12:13 PM * Full Code Date Activated Date Inactivated Comments 06/07/2021 5:56 PM 06/16/2021 1:18 PM * Full Code Date Activated Date Inactivated Comments 10/29/2019 10:29 AM 11/03/2019 11:18 AM Care Teams Summer Law Associate Relationship Specialty Start Date End Date Jos Ness, MANAGER CUSTOMER-STREET OPENINGS INSPECTOR PCP - General Nurse Practitioner Gerontology 11/22/23
--- OUTSIDE RECORDS SUMMARY | 2025-03-17 14:02 | XMS_ITS | Clinical Summary ---
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 Gender Identity Not on file Sexual Orientation [...] series) 2008 Covid-19 Vaccine ( - season) 2024 09/14/2020, 08/17/2020 Influenza Vaccine (#1) 2024 02/14/2021, 2019 DTaP/Tdap/Td Vaccine (7 - Td or Tdap) 11/03/2027 11/02/2017, 04/27/1996, 05/09/1986, Additional history exists Hepatitis B Screening Completed 03/12/2009, 997 Pneumococcal vaccine <65 Aged Out No longer eligible based on patient's age to complete this topic Insurance [employer] MED[employer]ARE [facility] Address: [address] [address] [place] [address] MEDICARE ADVANTAGE [facility] Address: [address] [address] [place] [address] Care Teams Warehouse Clerk Relationship Specialty Start Date End Date Patrice Mcbride MD [address] [place] [address] PCP - General Emergency Medicine 05/25/17
--- OUTSIDE RECORDS SUMMARY | 2025-03-17 14:02 | XMS_ITS | Clinical Summary ---
Author Organization [facility] Address [address] [place] [address] Phone Care Team Providers Care Program Therapist Name Role Phone Provider, None Primary Care [...] Comments Hepatitis C Virus (HCV) Screening 1981 Varicella Immunization (1 of 2 - 13+ 2-dose series) 1994 Pneumococcal Immunization Combined (1 of 2 - PCV) 2000 Medicare Initial AWV [id number] 08/24/2002 Human Papillomavirus (HPV) Immunization (1 - 3-dose SCDM series) 2008 Hepatitis B Immunization (3 of 3 - 3-dose series) 05/07/2009 03/12/2009, 04/27/1996 Influenza Immunization (#1) 2024 02/14/2021, 1 SARS-COV-2 Immunization ( - 2024- season) 2024 02/16/2023, 02/25/2022, 09/14/2020, Additional history exists Respiratory Syncytial Virus (RSV) Immunization (Adult) (1 - 1-dose 75+ series) 2056 DTaP/Tdap/Td Immunization Discontinued 2017, 04/27/1996, 05/09/1986, Additional history exists TdaP Immunization Completed 11/02/2017 Meningococcal Immunization (ACWY) Aged Out No longer eligible based on patient's age to complete this topic Rotavirus Immunization Aged Out No lo nger eligible based on patient's age to complete this topic Insurance [facility] [place] [id number] Care Teams Program Therapist Relationship Specialty Start Date End Date Provider, None [place] PCP - General 10/25/19 Kong Rodriguez MD [address] [address] Consulting Physician Urology 05/12/24
--- OUTSIDE RECORDS SUMMARY | 2025-03-17 14:02 | XMS_ITS | Patient Health Record ---
Author Organization [facility] Address [address] [place] [address] Care Team Providers Care Java Project Manager Name Role Phone Elder Plunkett Primary Care Provider Rosalinda Harrison Unavailable [phone] Aleja Rosenthal Unavailable [phone] Jos Ness Unavailable [phone] Dilma Carter Unavailable [phone] Brenna Sutherland Unavailable [phone] Rosalinda Davison Unavailable [phone] Allergies Allergen (clinical drug ingredient) Drug/Non Drug Allergy documented on EMR Reaction Allergy Type Onset Date Status Penicillin Childhood Drug Allergy Active Results Component Value Reference Range Notes 14 Panel Urine Drug Screen Reviewed date:02/06/2025 10:58:26 AM Interpretation: Performing Lab: Notes/Report: THC pos SEDRICK neg MOP (OPI) neg AMP neg MET neg BAR neg BZO neg MDMA neg MTD neg OXY neg PCP neg BUP neg TCA pos FTY neg Breathalyzer Reviewed date:02/06/2025 10:58:31 AM Interpretation: Performing Lab: Notes/Report: MARIA TERESA 0.000 14 Panel Urine Drug Screen Reviewed date:12/12/2024 12:01:58 PM Interpretation: Performing Lab: Notes/Report: THC neg SEDRICK neg MOP (OPI) neg AMP neg MET neg BAR neg BZO neg MDMA neg MTD neg OXY neg PCP neg BUP neg TCA neg FTY neg CBC With Differential/Platel et* Reviewed date:12/27/2024 09:41:46 AM Interpretation:Abnormal [facility]forming [facility], [address] [facility], Phone - [phone], [facility] - [facility] Notes/Report: WBC 7.3 3.4-10.8 x10E3/uL RBC 5.37 [...] x10E3/uL CMP 14 Comprehensive Metabol ic Panel* Reviewed date:12/27/2024 09:41:46 AM Interpretation:Normal Performing [facility], [address] [facility], Phone - [phone], Director - [facility] Notes/Report: Glucose 78 70-99 mg/dL BUN 9 [...] (SGPT) 19 0-44 IU/L QuantiFERON-TB Gold Plus (18 2879) Reviewed date:12/27/2024 09:41:46 AM Interpretation:Normal Performing Lab:[facility], [address] [facility], Phone - [phone], Director - [facility] Notes/Report: QuantiFERON Incubation Incubation performed. QuantiFERON-TB Gold [...] Interpretation: Performing Lab: Notes/Report: MARIA TERESA 0.000 QuantiFERON-TB Gold Plus (18 2879) Reviewed date:06/26/2024 08:29:46 AM Interpretation:Negative Performing Lab:[facility], [address] [facility], Phone - [phone], Director - [facility] Notes/Report: QuantiFERON Incubation Incubation performed. QuantiFERON-TB Gold [...] Start Date End Date Status hydrOXYzine Pamoate 25 MG 1-2 capsules O rally every 4 hours as needed for anxiety, agitation; Duration: 7 days on [facility] 12/12/2024 Not-Taking Naproxen 250 MG 1 tablet with food o r milk Orally every 12 hrs; Duration: 30 days Active traZODone HCl 150 MG 1 tablet at bedtime Orally Once a day; Duration: 30 days Active Sucralfate 1 GM 1 tablet on an empty stomach Orally 4 times a day BEFORE MEALS AND AT BEDTIME 01/25/2025 Active Prazosin HCl 2 MG 1 capsule at bedtime Orally Once a day; Duration: 30 days on [facility] Active Melatonin 5 MG 1 tablet in the evening Orally Once a day Not-Taking Latanoprost 0.005 % 1 drop into both eye s in the evening Ophthalmic Once a day Not-Taking Invega Trinza 819 MG/2.63ML as directed Intramuscular every 70 days Active Austedo XR 24 MG 1 tablet Orally Once a day; Duration: 30 days on [facility] Active Topiramate 50 MG 1 tablet Orally once a day for 5 days then stop this medication Active Pantoprazole Sodium 40 MG 1 tablet 1/2 t o 1 hour before morning meal Orally Once a day 01/25/2025 Active Lybalvi 15-10 MG 1 tablet Orally Once a day; Duration: 30 days on [facility] Active hydrOXYzine Pamoate 50 MG 1 - 2 capsule as needed Orally 3 times a day; Duration: 30 days on [facility] Active Cyclobenzaprine HCl 5 MG 1 tablet at bed time as needed Orally Once a day; Duration: 14 days Active Nicotine 21 MG/24HR 1 patch to skin. 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 Stress is when someone feels tense, nervous, anxious, or can\t sleep at night because their mind is troubled A little bit In the past year have you sp ent more than 2 nights in a row in a prison, longterm, alf center, or juvenile correctional facility? No Are you a refugee? I choose not to answer this q uestion What country are you from? I choose not to answe r this question Do you feel physically and e motionally safe where you currently live? No In the past year, have you b een afraid of your partner or ex-partner? No PRAPARE Score: 10 Enabling Services Provided? Yes Please specify Case Management Follow-up Tobacco Control (Standard) Question Answer Notes Tobacco use: Light tobacco smoker Additional Findings: Tobacco user Light cigarett e smoker (1-9 cigs/day) Section Notes: Substance use: Recent relapse in crack cocaine and methamphetamine use; weekly or monthly use Living situation: Lives alone in apartment; feels isolated and conflicted about moving Substance use: Recent relapse in crack cocaine and methamphetamine use; weekly or monthly use Living situation: Lives alone in apartment; feels isolated and conflicted about moving Problems Problem Type SNOMED Code ICD Code Onset Dates Problem Status W/U Status Risk Notes Problem Tobacco user (573100001) Nicotine dependence, unspecified, uncomplicated (F17.200) Active confirmed Problem Schizoaffective disorder, bipolar type (95268658) Schizoaffective disorder, bipolar type (F25.0) 02/03/20 24 Active confirmed Problem Generalized anxiety disorder (22372215) Generalized anxiety disorder (F41.1) Active confirmed Problem Substance abuse (1329003297) Substance abuse (F19.10) Active confirmed Problem Posttraumatic stress disorder (44493361) PTSD (post-traumatic stress disorder) (F43.10) Active confirmed Problem Abdominal pain (83207892) Abdominal pain (R10.9) Active confirmed Problem Foot pain (61495101) Foot pain (M79.673) Active confirmed Problem Overweight (771292527) Over weight (E66.3) Active confirmed Problem Insomnia due to mental disorder (32261088) Insomnia due to mental disorder (F51.05) 02/03/20 24 Active confirmed Problem Alcohol use disorder (1386846071) Alcohol use disorder (F10.99) Active confirmed Problem Nightmares (449189284) Nightmares (F51.5) 02/03/20 24 Active confirmed Problem Methamphetamine abuse (777923003) Methamphetamine abuse (F15.10) Active confirmed Problem History of methamphetamine use (29876984550705992 ) Methamphetamine use (F15.10) Active confirmed Problem Physical examination (6989811) Routine physical examination (Z00.00) Active confirmed Problem Cocaine abuse (33768349) Cocaine use (F14.10) Active confirmed Problem Mental health disorder (57223450) Mental health disorder (F99) Active confirmed Problem Difficulty sleeping (761894332) Sleeping difficulty (G47.9) Active confirmed Problem Obesity (444841354) Obesity (BMI 30-39.9) (E66.9) Active confirmed Problem Tobacco use (185909060) Tobacco use disorder (F17.200) Active confirmed Problem Obesity (114862774) Obesity, unspecified classification, unspecified obesity type, unspecified whether serious comorbidity present (E66.9) Active confirmed Problem Cocaine dependence in remission (242439606) Cocaine use disorder, moderate, in early remission (F14.21) Active confirmed Problem Stimulant dependence (376866278) Methamphetamine use disorder, 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) Active confirmed Problem Cannabis use disorder (5355683322) Cannabis use disorder (F12.90) Active confirmed Vital Signs Heart Rate 70 /min 03/07/2025 Temperature 98.0 degrees Fahrenheit 03/07/2025 Respiratory Rate 20 /min 03/07/2025 Blood pressure diastolic 70 mm Hg 03/07/2025 Oximetry 98 % 03/07/2025 Height 67 in 03/07/2025 Blood pressure systolic 124 mm Hg 03/07/2025 Weight 210.6 lbs lbs 03/07/2025 BMI 32.98 kg/m2 03/07/2025 Encounters Encounter Location Date Provider Diagnosis [address] [place] [address] 03/29/2024 Brenna Short Dysuria R30.[address] [place] [address] 04/24/2024 Rosalinda Harrison Schizoaffective disorder, bipolar type F25.0 ; Nightmares F51.5 ; Insomnia due to mental disorder F51.05 ; Methamphetamine use F15.10 and Tardive dyskinesia G24.[address] [place] [address] 04/24/2024 Rosalinda Hunter Schizoaffective disorder, bipolar type F25.[address] [place] [address] 05/18/2024 Rosalinda Harrison Schizoaffective disorder, bipolar type F25.0 ; Nightmares F51.5 ; Insomnia due to mental disorder F51.05 ; Methamphetamine use F15.10 and Tardive dyskinesia G24.[address] [place] [address] 05/31/2024 Rosalinda Hunter Schizoaffective disorder, bipolar type F25.0 ; Nightmares F51.5 ; Insomnia due to mental disorder F51.05 ; Methamphetamine use F15.10 and Tardive dyskinesia G24.01 [facility] [address] [place] [address] 06/20/2024 Brenna Sutherland Adult general medica l exam Z00.00 [facility] [address] [place] [address] 06/27/2024 Rosalinda Harrison Schizoaffective disorder, bipolar type F25.0 ; Nightmares F51.5 ; Insomnia due to mental disorder F51.05 ; Methamphetamine use F15.10 and Tardive dyskinesia G24.[address] [address] 07/24/2024 Rosalinda Harrison Schizoaffective disorder, bipolar type F25.0 ; Nightmares F51.5 ; Insomnia due to mental disorder F51.05 ; Methamphetamine use F15.10 and Tardive dyskinesia G24.[address] [address] 10/26/2024 Rosalinda Harrison Schizoaffective disorder, bipolar type F25.0 ; Nightmares F51.5 ; Insomnia due to mental disorder F51.05 ; Methamphetamine use F15.10 and Tardive dyskinesia G24.01 [facility] [address] [place] [address] 12/12/2024 Rosalinda Harrison Physical exam Z00.00 ; Schizoaffective disorder, bipolar type F25.0 ; Nightmares F51.5 ; Insomnia due to mental disorder F51.05 and Tardive dyskinesia G24.01 [facility] [address] [place] [address] 12/12/2024 Rosalinda Davison Mental health disord er F99 and Over weight E66.3 [facility] [address] [place] [address] 12/19/2024 Rosalinda Harrison Over weight E66.3 ; Physical exam Z00.00 ; Schizoaffective disorder, bipolar type F25.0 ; Nightmares F51.5 ; Insomnia due to mental disorder F51.05 and Tardive dyskinesia G24.[address] [place] [address] 12/20/2024 Rosalinda Harrison [facility] [place] [address] [place] [address] 01/11/2025 Dilma Carter Schizoaffective disorder, bipolar type F25.[address] [place] [address] 01/25/2025 Elder Plunkett Esophagitis, unspecified without bleeding K20.90 [place] [address] [place] [address] 02/06/2025 Aleja Rosenthal Routine general medical examination at a health care facility Z00.00 ; Obesity (BMI 30-39.9) E66.9 and Tobacco use disorder F17.200 [place] [address] [place] [address] 02/06/2025 Rosalinda Davison Over weight E66.3 an d Substance abuse F19.[address] [place] [address] 02/08/2025 Rosalinda Harrison Schizoaffective disorder, bipolar type F25.0 ; Insomnia due to mental disorder F51.05 ; Tardive dyskinesia G24.01 and Methamphetamine use F15.10 [facility] [place] [address] [place] [address] 03/06/2025 Rosalinda Harrison Schizoaffective disorder, bipolar type F25.0 ; Generalized anxiety disorder F41.1 ; Sleeping difficulty G47.9 ; Methamphetamine use F15.10 ; Cannabis use disorder F12.90 ; Over weight E66.3 and PTSD (post-traumatic stress disorder) F43.10 [place] [address] [place] [address] 03/07/2025 Rosalinda Harrison Schizoaffective disorder, bipolar type F25.0 [facility] [address] [place] [address] 02/22/2025 Rosalinda Harrison Schizoaffective disorder, bipolar type F25.0 ; Tardive dyskinesia G24.01 ; Insomnia due to mental disorder F51.05 and Routine general medical examination at a health care facility Z00.[address] [place] [address] 03/20/2024 Brenna Sutherland [address] [place] [address] 04/11/2024 Rosalinda Harrison [address] [place] [address] 04/18/2024 Rosalinda Harrison Schizoaffective disorder, bipolar type F25.[address] [place] [address] 04/20/2024 Jos Ness [address] [place] [address] 04/25/2024 Rosalinda Harrison [address] [address] 05/23/2024 Rosalinda Harrison Insomnia due to ment al disorder F51.05 [facility] [address] [place] [address] 07/17/2024 Rosalinda Harrison [address] [place] [address] 11/08/2024 Rosalinda Harrison [address] [place] [address] 11/16/2024 Rosalinda Harrison Nightmares F51.5 and Schizoaffective disorder, bipolar type F25.[address] [place] [address] 12/28/2024 Rosalinda Harrison Schizoaffective disorder, bipolar type F25.[address] [place] [address] 01/02/2025 Rosalinda Harrison [facility] [address] [place] [address] 02/14/2025 Dilma Carter [facility] [place] [address] 02/21/2025 Elder Plunkett Routine general medical examination at a health care facility Z00.00 [facility] [address] [place] [address] 02/22/2025 Rosalinda Harrison [address] [place] [address] 02/22/2025 Elder Plunkett Routine general medical examination at a health care facility Z00.00 [place] [address] [place] [address] 02/28/2025 Rosalinda Harrison Routine general medical examination at a health care facility Z00.00 [place] [address] [place] [address] 02/28/2025 Elder Plunkett Routine general medical examination at a health care facility Z00.00 [address] [place] [address] [place] [address] 03/07/2025 Rosalinda Harrison Assessments Encounter Date Diagnosis (ICD Code) Assessment Notes Treatment Notes Treatment Clinical Notes Section Notes 01/25/2025 Esophagitis, unspecified without bleeding (ICD-10 - K20.90) Gastroesophageal reflux disease (GERD) is a condition where stomach acid flows back up into the esophagus, causing heartburn and other symptoms. Dietary modifications can play an important role in managing GERD. Foods to Avoid: Fatty and fried foodsSpicy foodsAcidic foods (e.g., citrus fruits, tomatoes, vinegar)Carbonated beveragesChocolateCaffeineAlco holProcessed foods and fast food Foods to Focus on: Lean proteins (e.g., chicken, fish, eggs)Low-fat dairy products (e.g., milk, yogurt)Fruits and vegetables (e.g., apples, bananas, broccoli, carrots)Whole grains (e.g., rice, oatmeal, bread)Non-acidic beverages (e.g., water, herbal tea) Other Dietary Recommendations:Eat small, frequent meals.Avoid eating within 2-3 hours of bedtime.Limit sugary drinks and processed foods.Consider a low-fat or low-calorie diet if overweight or obese.Avoid lying down or bending over immediately after eating.Elevate the head of your bed slightly. Sample Meal Plan:Breakfast: Oatmeal with berries and nuts and Scrambled eggs with spinach. Lunch: Grilled chicken salad with lean protein, vegetables, and a light dressing [place] sandwich on whole wheat bread with avocado and tomato Dinner: Baked salmon with steamed vegetablesChicken stir-garcia with lean chicken, vegetables, and riceSnacks: Fruits (e.g., apples, bananas)Yogurt with berriesNuts (in moderation)Additional Tips: Keep a food diary to track your symptoms and identify trigger foods. Consult with a registered dietitian or healthcare professional for personalized dietary recommendations. Consider lifestyle changes such as quitting smoking and reducing stress. 02/06/2025 Routine general medical examination at a health care facility (ICD-10 - Z00.00) Admit to the crisis unit for 24-hour observation and initiate standing/protocol orders: The following PRN [...] increased pain/redness/swelling, or if soaking through bandages. 02/06/2025 Over weight (ICD-10 - E66.3) 02/08/2025 Schizoaffective disorder, bipolar type (ICD-10 - F25.0) mutual agreement to continue current regimen. 12/12/2024 Mental health disorder (ICD-10 - F99) 12/19/2024 Over weight (ICD-10 - E66.3) 06/20/2024 Adult general medical exam (ICD-10 - [...] and akathisia. 11/16/2024 Nightmares (ICD-10 - F51.5) 12/12/2024 Physical exam (ICD-10 - Z00.00) Admit [...] increased pain/redness/swelling, or if soaking through bandages. 03/29/2024 Dysuria (ICD-10 - R30.0) 04/18/2024 Schizoaffective [...] temporary or permanent movement disorders, and akathisia. 05/18/2024 Schizoaffective disorder, bipolar type (ICD-10 - [...] temporary or permanent movement disorders, and akathisia. 12/28/2024 Schizoaffective disorder, bipolar type (ICD-10 - F25.0) 01/11/2025 Schizoaffective disorder, bipolar type (ICD-10 - F25.0) Continue current medication. Continue services as scheduled. May self-administer medications or be administered own oral medications per [facility] protocols. Provided informed consent with understanding of side effects, adverse effects, risks and benefits as well as alternative treatments as previously discussed and with the above recommended medications & other aspects of the treatment program. Agrees to return sooner if symptoms worsen or suicidal or homicidal ideations occur. 02/21/2025 Routine general medical examination at a health care facility (ICD-10 - Z00.00) 02/22/2025 Schizoaffective disorder, bipolar type (ICD-10 - F25.0) 02/22/2025 Routine general medical examination at a health care facility (ICD-10 - Z00.00) 02/28/2025 Routine general medical examination at a health care facility (ICD-10 - Z00.00) 02/28/2025 Routine general medical examination at a health care facility (ICD-10 - Z00.00) 03/06/2025 Schizoaffective disorder, bipolar type (ICD-10 - F25.0) Reduscing polypharmacy. Hx of abdominal pain with topiramate which he states has started to reoccur; stop this medication vis wean. Racing thoughts, irritability, poor attention, inability to sleep: concerns for davide; stop wellbutrin, increase Lybalvi, stop Haldol due to fatigue and weight gain along with polypharm. HUANG to be given when client is able to make appt. Continue Invega. Stop lamotrigine at this time due to ineffectiveness/polypharm. May look to add in if/as needed in future appts. Continue/no changes to hydroxyzine, trazodone, prazosin, Austedo. Courtesy fill of esvin, f/u with PCP. 03/07/2025 Schizoaffective disorder, bipolar type (ICD-10 - F25.0) 02/06/2025 Substance abuse (ICD-10 - F19.10) 02/22/2025 Tardive dyskinesia (ICD-10 - G24.01) 03/06/2025 Generalized anxiety disorder (ICD-10 - F41.1) 05/31/2024 Nightmares (ICD-10 - F51.5) 05/18/2024 Nightmares (ICD-10 - F51.5) 04/24/2024 Nightmares (ICD-10 - F51.5) 12/12/2024 Schizoaffective disorder, bipolar type (ICD-10 - [...] or permanent movement disorders, and akathisia. 10/26/2024 Nightmares (ICD-10 - F51.5) 07/24/2024 Nightmares (ICD-10 - F51.5) 06/27/2024 Nightmares (ICD-10 - F51.5) 12/19/2024 Physical exam (ICD-10 - Z00.00) 11/16/2024 Schizoaffective disorder, bipolar type (ICD-10 - F25.0) 12/12/2024 Over weight (ICD-10 - E66.3) 02/08/2025 Insomnia due to mental disorder (ICD-10 - F51.05) 02/06/2025 Obesity (BMI 30-39.9) (ICD-10 - E66.9) 02/06/2025 Tobacco use disorder (ICD-10 - F17.200) 02/08/2025 Methamphetamine use (ICD-10 - F15.10) Reports sobriety since Dec 2024 Encouraged non-use. Encouraged groups and therapy. 02/08/2025 Tardive dyskinesia (ICD-10 - G24.01) 12/19/2024 Schizoaffective disorder, bipolar type (ICD-10 - F25.0) 06/27/2024 Insomnia due to mental disorder (ICD-10 - F51.05) 07/24/2024 Insomnia due to mental disorder (ICD-10 - F51.05) 10/26/2024 Insomnia due to mental disorder (ICD-10 - F51.05) 12/12/2024 Nightmares (ICD-10 - F51.5) 04/24/2024 Insomnia due to mental disorder (ICD-10 - F51.05) 05/18/2024 Insomnia due to mental disorder (ICD-10 - F51.05) client concerned about weigh t- adjusting 05/31/2024 Insomnia due to mental disorder (ICD-10 - F51.05) Reports not sleeping with removal of Haldol even with increase in trazodone to 300mg, decrease back to 200mg and restarting low-dose Haldol. Discussed r/b/se. 02/22/2025 Insomnia due to mental disorder (ICD-10 - F51.05) 03/06/2025 Sleeping difficulty (ICD-10 - G47.9) 03/06/2025 Methamphetamine use (ICD-10 - F15.10) Continue groups and therapy. 02/22/2025 Routine general medical examination at a health care facility (ICD-10 - Z00.00) 05/31/2024 Methamphetamine use (ICD-10 - F15.10) 05/18/2024 Methamphetamine use (ICD-10 - F15.10) 04/24/2024 Methamphetamine use (ICD-10 - F15.10) 12/12/2024 Insomnia due to mental disorder (ICD-10 - F51.05) 10/26/2024 Methamphetamine use (ICD-10 - F15.10) 07/24/2024 Methamphetamine use (ICD-10 - F15.10) 06/27/2024 Methamphetamine use (ICD-10 - F15.10) 12/19/2024 Nightmares (ICD-10 - F51.5) 12/19/2024 Insomnia due to mental disorder (ICD-10 - F51.05) changed to PRN status 06/27/2024 Tardive dyskinesia (ICD-10 - G24.01) States [...] TD is doing really well right now. 12/12/2024 Tardive dyskinesia (ICD-10 - G24.01) States this is working well at this time, denies SE. My TD is doing really well right now. May look to D/C in future appt if client continues with stability as he reports not wanting to stay on this medication. 04/24/2024 Tardive dyskinesia (ICD-10 - G24.01) 05/18/2024 Tardive dyskinesia (ICD-10 - G24.01) 05/31/2024 Tardive dyskinesia (ICD-10 - G24.01) States this is working well at this time, denies SE. My TD is doing really well right now. 03/06/2025 Cannabis use disorder (ICD-10 - F12.90) Continue groups and therapy. 03/06/2025 PTSD (post-traumatic stress disorder) (ICD-10 - F43.10) 03/06/2025 Over weight (ICD-10 - E66.3) 12/19/2024 Tardive dyskinesia (ICD-10 - G24.01) States this is working well at this time, denies SE. My TD is doing really well right now. May look to D/C in future appt if client continues with stability as he reports not wanting to stay on this medication. 04/24/2024 Other Reasons, potential benefits, potential risks, [...] May also contact the 24-hour crisis hotline (R), refer to the closest emergency room or [...] up. This session was completed telephonically with client/parental/guardian consent: Unable to determine movement status, assess [...] May also contact the 24-hour crisis hotline ([facility]), refer to the closest emergency [...] up. This session was completed telephonically with client/parental/guardian consent: Unable to determine movement status, assess [...] May also contact the 24-hour crisis hotline ([facility]), refer to the closest emergency [...] up. This session was completed telephonically with client/parental/guardian consent: Unable to determine movement status, assess [...] May also contact the 24-hour crisis hotline ([facility]), refer to the closest emergency [...] up. This session was completed telephonically with client/parental/guardian consent: Unable to determine movement status, assess [...] May also contact the 24-hour crisis hotline ([facility]), refer to the closest emergency [...] up. This session was completed telephonically with client/parental/guardian consent: Unable to determine movement status, assess [...] May also contact the 24-hour crisis hotline ([facility]), refer to the closest emergency [...] up. This session was completed telephonically with client/parental/guardian consent: Unable to determine movement status, assess appearance, affect, AIMS, or vital signs. 12/12/2024 Other Discussed r/b/se of treatment regimens. Patient on crisis unit where staff have access to this report. 12/12/2024 Other Clinician met w ith client to assess needs for residential services. Clinician gathered information regarding historical presentation of mental health and substance use symptoms including withdrawal, HIV Risk assessment, psychiatric hospitalization history and presenting concern. Clinician conducted PHQ9 and CSSRS assessments as well as social drivers of health screening for the purposes of identifying additional service needs. 12/19/2024 Other Reasons, potential benefits, potential risks, interactions [...] May also contact the 24-hour crisis hotline ([facility]), refer to the closest emergency [...] of education, treatment plan and follow up. 02/06/2025 Other Clinician met w ith client to assess needs for residential services. Clinician gathered information regarding historical presentation of mental health and substance use symptoms including withdrawal, HIV Risk assessment, psychiatric hospitalization history and presenting concern. Clinician conducted PHQ9 and CSSRS assessments as well as social drivers of health screening for the purposes of identifying additional service needs. 02/08/2025 Other Reasons, potential benefits, potential risks, interactions [...] May also contact the 24-hour crisis hotline ([facility]), refer to the closest emergency [...] and follow up. This session was completed via zoom with client/parental/guardian consent: Unable to fully determine movement status, assess appearance, affect, AIMS, or vital signs. 03/06/2025 Other Reasons, potential benefits, potential risks, interactions [...] May also contact the 24-hour crisis hotline ([facility]), refer to the closest emergency room or [...] of education, treatment plan and follow up. Plan Of Treatment Pending Test Test Name Order Date CBC With Differential/Platelet* 08/24/19 21 Valproic Acid (Depakote)(R),S 08/23/2020 CMP 14 Comprehensive Metabolic Panel* Next Appt Details Provider Name:Rosalinda freeman, 03/20/2025 09:00:00 AM, [address], [place], [address], Insurance Providers Payer Name Payer Address Payer Phone Subscriber Number Group Number Insured Name Patient Relationship to Insured Coverage Start Date Coverage End Date MEDICARE PART A [address] [facility] [place] [phone] [id number] Dominguez Hopper Self - patient is the insured 1 4 [facility] Medicare [address] [address] [place] [address] [phone] [id number] Dominguez Hopper Self - patient is the insured 4 MEDICAID [address] [place] [address] [id number] Dominguez Hopper Self - patient is the insured 1 [employer] Medicare [address] [place] [address] [id number] Dominguez Hopper Self - patient is the insured 4 4 [employer] MEDICARE LCSW [address] [address] [place] [address] [id number] Dominguez Hopper Self - patient is the insured 5 Medications Administered Medication Instructions Date of Administration Dosage Notes Invega Sustenna 08/03/2023 234 mg Invega Sustenna 12/01/2023 234 mg given at [facility] Invega Sustenna 12/30/2023 234 mg Given at [facility] Invega Trinza 09/24/2020 410 mg Pt [...] well. 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 [facility]# [id number]. Medical (General) History Medical History History ICD Code Schizoaffective disorder Marijuana use disorder glaucoma Substance use disorder Trauma-related psychological distress Possible esophageal injury Hiv exposure concern Surgical History Surgery Date(Month/Year) Hernia repair Hernia repair on left and right side Hospitalization History Reason Date(Month/Year) Prior er visit for throat symptoms Recent hospitalization at [facility] [place] - Psych 01/2025 Paul MERCERU 05/27/2021 David 04/2021 Amy
[2025-03-17 14:47] LABS: Influenza A QL RT-PCR Negative (Negative); Influenza B QL RT-PCR Negative (Negative); SARS-CoV-2 RNA PCR Negative (Negative)
--- NOTE | 2025-03-17 14:59 | ED.GENADULT ---
HPI - General Adult General Chief complaint: Upper Respiratory Infection Stated complaint: exposed to COVID, stomach pain, ST, h/a Time Seen by Provider: 03/17/25 13:46 History of Present Illness HPI narrative: Patient is a 44-year-old male who presents ER with concerns for COVID exposure. This curd 5 days ago and over last couple days he started developing some sore throat with headache and has had some upset stomach. No fevers or chills. No productive cough. No diarrhea. No urinary symptoms. He is currently in a treatment facility for drug use and is 50 days clean. Related Data Home Medications ?Medication ?Instructions ?Recorded ?Confirmed ?Last Taken ?Type divalproex 500 mg tablet,delayed 500 mg PO BID 04/04/19 02/02/23 09/23/22 07:45 History release haloperidol 5 mg tablet 5 mg PO BID 04/04/19 02/02/23 09/23/22 07:45 History paliperidone palm (3 month) 546 546 mg IM [id number] 11/27/19 02/02/23 Unknown History mg/1.75 mL intramuscular syringe (Invega Allieza) benztropine 0.5 mg tablet 0.5 mg PO BID 04/22/20 02/02/23 09/23/22 07:45 History hydroxyzine HCl 25 mg tablet 25 mg PO BID PRN ANXIETY 05/14/22 02/02/23 09/22/22 History Allergies Allergy/AdvReac Type Severity Reaction Status Date / Time Penicillins AdvReac Unknown Nausea and Verified 03/17/25 13:46 Vomiting Review of Systems Review of Systems: All systems reviewed & are unremarkable except as noted in HPI and below Constitutional: Constitutional: Reports no additional constitutional complaints ENT: Reports system reviewed and no additional complaints, except as documented Cardiovascular: Cardiovascular: Reports no additional cardiovascular complaints Respiratory: Respiratory: Reports no additional respiratory complaints Gastrointestinal: Gastrointestinal: Reports no additional gastrointestinal complaints PMFSH Past Medical History Medical History Schizophrenia Surgical History Surgical History History of inguinal hernia repair 09/23/22 Robotic laparoscopic right inguinal hernia repair with 3DMax mesh Left inguinal hernia repair with mesh ~[address] [place] Family History Family History Mother Patient's mother is in good health Social History Social History Smoking packs per day: 1 Smoking cigarettes per day: 20.0 Years smoked: 15 Smoking pack-years: 15.00 Smoking status: Current every day smoker Tobacco type: cigarettes Substance use: never Substance use type: methamphetamine Gender identity (if verbalized by the patient): Male Sexual Orientation (if Verbalized by the Patient): Straight or Heterosexual Spiritual care concerns: No Exam Narrative: GENERAL: Well-appearing, well-nourished, and in no acute distress. HEAD: Normocephalic, atraumatic. ENT: Mucous membranes moist. Normal appearing posterior oropharynx. NECK: Supple. CHEST: Clear to auscultation. No respiratory distress. HEART: Regular rate and rhythm. Normal peripheral pulses. ABDOMEN: Soft, nontender, nondistended, normal active bowel sounds. EXTREMITIES: Normal range of motion. No edema. SKIN: Warm, dry, no rash. NEURO: Alert and oriented x3. PSYCH: Normal mood and affect. Course Vital Signs Vital signs: Vital Signs Temperature 97.5 F L 03/17/25 13:18 Pulse Rate 78 03/17/25 13:18 Respiratory Rate 18 03/17/25 13:18 Blood Pressure 150/95 H 03/17/25 13:18 Pulse Oximetry 100 03/17/25 13:18 Oxygen Delivery Room Air 03/17/25 13:18 Temperature 97.5 F L 03/17/25 13:18 Pulse Rate 78 03/17/25 13:18 Respiratory Rate 18 03/17/25 13:18 Blood Pressure 150/95 H 03/17/25 13:18 Pulse Oximetry 100 03/17/25 13:18 Oxygen Delivery Room Air 03/17/25 13:18 Medical Decision Making Differential Diagnosis Differential Diagnosis: URI, pneumonia, dehydration Vital Signs Vital Signs: Vital Signs Temperature 97.5 F L 03/17/25 13:18 Pulse Rate 78 03/17/25 13:18 Respiratory Rate 18 03/17/25 13:18 Blood Pressure 150/95 H 03/17/25 13:18 Pulse Oximetry 100 03/17/25 13:18 Oxygen Delivery Room Air 03/17/25 13:18 Temperature 97.5 F L 03/17/25 13:18 Pulse Rate 78 03/17/25 13:18 Respiratory Rate 18 03/17/25 13:18 Blood Pressure 150/95 H 03/17/25 13:18 Pulse Oximetry 100 03/17/25 13:18 Oxygen Delivery Room Air 03/17/25 13:18 Lab Data Lab results reviewed: Yes I reviewed the patient's lab results. Labs: Lab Results 03/17/25 Range/Units 14:06 Influenza A (RT-PCR) Negative (Negative) Influenza B (RT-PCR) Negative (Negative) SARS-CoV-2 RNA (RT-PCR) Negative (Negative) Discharge Plan Discharge Clinical Impression: Acute viral syndrome Patient Disposition: Home Condition: Stable Instructions: Viral Syndrome (ED) Additional Instructions: You tested negative for COVID and influenza. As discussed you have a viral illness. Unfortunately there are no specific medications we can give you to make the illness end faster. Antibiotics do not work for viral illnesses. However, you can take Acetaminophen or Ibuprofen to help with fevers and pain. Stay well hydrated and rested. Return to the emergency department if your fevers and chills continue to worse after 5 days, if you develop worsening cough with thick sputum, or are unable to stay hydrated. Contact your primary care provider in the next few days for a re-evaluation and to make sure your symptoms are improving. Patient Language: Swiss Prescriptions: No Action divalproex 500 mg tablet,delayed release (DR/EC) 500 mg PO BID haloperidol 5 mg tablet 5 mg PO BID hydroxyzine HCl 25 mg tablet 25 mg PO BID PRN (Reason: ANXIETY) omeprazole 40 mg capsule,delayed release(DR/EC) 40 mg PO DAILY Qty: 30 2RF omeprazole 40 mg capsule,delayed release(DR/EC) 40 mg PO DAILY Qty: 30 3RF clindamycin HCl 150 mg capsule 150 mg PO Q6H 7 Days Qty: 28 0RF Invega Trinza 546 mg/1.75 mL syringe 546 mg IM [id number] benztropine 0.5 mg tablet 0.5 mg PO BID Follow-up/Referrals: Julio Cesar Vargas MD [Physician, Family Practice] - 1 Week
--- NOTE | 2025-03-17 15:00 | PC.NURSE ---
Report given to KM Perez
== END 2025-03-17 15:15 | disposition home or self-care (01) ==
PROVIDERS: Emergency Provider Emergency Medicine
DX: B34.9 Viral infection, unspecified (principal); Z20.822 Contact with and (suspected) exposure to COVID-19; F20.9 Schizophrenia, unspecified; F17.210 Nicotine dependence, cigarettes, uncomplicated; Z79.899 Other long term (current) drug therapy
CPT/HCPCS: 87636; 99283